=== PATIENT | female | born 1995 | race Caucasian/White ===

== ENCOUNTER → 2019-01-08 | Outpatient (CLI) | payer OTHER ==
[2019-01-08 16:54] LABS: Basophils % (A) 0 %; Eosinophils # (A) 0.1 k/uL (0-0.7); Eosinophils % (A) 2 %; HCT 41.1 % (34.0-46.0); HGB 13.8 gm/dL (11.4-16.0); Lymphocytes # (A) 1.7 k/uL (1.0-4.8); Lymphocytes % (A) 28 %; MCH 31.7 pg (25.0-35.0); MCHC 33.5 g/dL (31.0-37.0); MCV 94.7 fL (80.0-100.0); Mean Platelet Volume 5.8; Monocytes # (A) 0.4 k/uL (0-1.0); Monocytes % (A) 6 %; Neutrophils # (A) 3.9 k/uL (1.3-7.7); Neutrophils % (A) 62 %; Platelet Count 237 k/uL (150-450); RBC 4.34 m/uL (3.80-5.40); WBC 6.3 k/uL (3.8-10.6)
[2019-01-08 16:59] LABS: Prothrombin Time 10.7 sec (9.0-12.0)
[2019-01-08 23:45] LABS: African American GFR (CKD) 141.5 (60.0-200.0); Albumin/Globulin Ratio 2.38 (1.60-3.17); Anion Gap 9.9 mmol/L (4.00-12.00); BUN/Creat Ratio 24.29 Ratio (12.00-20.00); Calcium 9.6 mg/dL (8.7-10.3); Carbon Dioxide 28.1 mmol/L (21.6-31.8); Globulin 2.1 g/dL (1.6-3.3); Non-African American GFR(CKD) 122.1 (60.0-200.0); Potassium 4.1 mmol/L (3.5-5.5); Total Bilirubin 0.6 mg/dL (0.2-1.2); Total Protein 7.1 g/dL (6.2-8.2)
[2019-01-14 11:51] LABS: HCV Qualitative Result DETECTED (Not detected); HCV Quant Log 4.39 (<1.08)
== END | disposition home or self-care (01) ==
LOC: LABWHC1 16:00
PROVIDERS: ATTEND Nurse Practitioner
DX: Z86.19 Personal history of other infectious and parasitic diseases (principal)
CPT/HCPCS: 36415; 80053; 85025; 85610; 87522; 87902

== ENCOUNTER → 2019-01-22 | Outpatient (CLI) | payer OTHER ==
--- NOTE | 2019-01-22 08:50 | US ---
EXAMINATION TYPE: US liver DATE OF EXAM: 01/22/2019 COMPARISON: NONE CLINICAL HISTORY: Z86.19 personal hx of other infec diseases. Pt states recent labs showing Hep C ant ibodies EXAM MEASUREMENTS: Liver Length: 13.8 cm Gallbladder Wall: 0.4cm CBD: 0.4 cm Right Kidney: 10.9 x 4.0 x 5.6 cm Pancreas: wnl Liver: wnl Gallbladder: wnl Evidence for sonographic Arevalo's sign: No CBD: wnl Right Kidney: wnl, lower pole gassed out IMPRESSION: 1. No distinct abnormality seen.
== END | disposition home or self-care (01) ==
LOC: RADUSWWP 08:11
PROVIDERS: ATTEND Internal Medicine Gastroenterology
DX: Z09 Encounter for follow-up examination after completed treatment for conditions other than malignant neoplasm (principal); Z86.19 Personal history of other infectious and parasitic diseases
CPT/HCPCS: 76705

== ENCOUNTER → 2019-04-16 | Outpatient (CLI) | payer OTHER ==
--- NOTE | 2019-04-16 13:46 | US ---
EXAMINATION TYPE: Transabdominal DATE OF EXAM: 04/16/2019 1:15 PM COMPARISON: NONE CLINICAL HISTORY: Z36 confirm dates and viability. EXAM PERFORMED: Transabdominal (TA) EXAM MEASUREMENTS: GESTATIONAL AGE / DATING Physician Established: Not yet established Dates by LMP: (10 weeks/6 days) EDC: 11/06/2019 Dates by First Scan: No previous this is first scan Dates by Current Scan for: (8 weeks/3 days) EDC: demise MATERNAL ANATOMY Uterus: 12.2 x 4.6 x 8.5 cm Right Ovary: 3.3 x 1.4 x 1.8 cm Left Ovary: 4.5 x 2.0 x 2.0 cm Post CDS / Adnexa: Tiny amount of free fluid visualized Presence of free fluid: See above Presence of corpus luteal cyst: Yes, left ovary measuring 1.5 x 1.1 x 1.7 cm Presence of subchorionic bleed: Yes, measuring 1.3 x 1.1 x 1.5 cm GESTATION / SURVEY CRL: 1.89 cm (8 weeks/3 days) Yolk Sac (normal less than 6mm): Not visualized IUP: Demise Date of LMP: 01/30/2019 Beta HcG (if available): Not available at this time demise measuring 8 weeks/3 days IMPRESSION: demise. No heart tones seen despite 2 attempts and absent color flow.
== END | disposition home or self-care (01) ==
LOC: RADUSWWP 12:47
PROVIDERS: ATTEND Obstetrics & Gynecology
DX: O02.1 Missed abortion (principal); Z3A.08 8 weeks gestation of pregnancy; Z34.81 Encounter for supervision of other normal pregnancy, first trimester
CPT/HCPCS: 36415; 76801; 82565; 82947; 84450; 84460; 85027; 86762; 86777; 86778; 86780; 86850; 86900; 86901; 87340

== ENCOUNTER → 2019-04-20 | Day surgery (SDC) | payer OTHER ==
[2019-04-16 13:49] LABS: HCT 35.2 % (34.0-46.0); MCHC 34.1 g/dL (31.0-37.0); MCV 93.9 fL (80.0-100.0); Platelet Count 223 k/uL (150-450); RBC 3.75 m/uL (3.80-5.40); RDW 12.2 % (11.5-15.5); WBC 7.1 k/uL (3.8-10.6)
[2019-04-16 14:10] LABS: ALT 59 U/L (4-34); AST 43 U/L (14-36); African American GFR (CKD) >90 (>60 ml/min/1.73 sqM); Glucose 83 mg/dL (74-99); Non-African American GFR(CKD) >90 (>60 ml/min/1.73 sqM)
[2019-04-16 20:17] LABS: Hepatitis B Surface Antigen Non-Reactive (Non-Reactive)
[2019-04-17 07:00] LABS: Toxoplasma Antibody (IgG) <3.0 IU/mL (<7.2); Toxoplasma Antibody (IgM) <3.0 AU/mL (<8.0)
[2019-04-17 09:15] VITALS: BMI 23.8
[~2019-04-20] MED LIST: DEXAMETHASONE SOD PHOSPHATE 10 MG/ML 1 ML VIAL IV ONE; HYDROmorphone 0.5 MG/0.5 ML SYRINGE IVP PRN; KETOROLAC 30 MG/ML 1 ML VIAL ONE; LACTATED RINGERS 1,000 ML IV SCH; LIDOCAINE 1% 20 ML VIAL (10MG/ML) FOR IV START INTRADERMA ONE; LIDOCAINE 1% INJ 10MG/ML (20 ML MDV) ONE; MIDAZOLAM 2 MG/2 ML VIAL IV PRN; MIDAZOLAM 2 MG/2 ML VIAL ONE; PROPOFOL 10 MG/ML 20 ML VIAL IV ONE; Pre Op ABX Message 1 EACH MISC MISCELLANE ONE; SCOPOLAMINE 1.5MG/72HR PATCH TRANSDERM ONE; fentaNYL (PF) 50 MCG/ML 2 ML AMP ONE
[2019-04-20] MEDS: ONDANSETRON 4 MG/2 ML VIAL IVP ONE ×2 (11:46→13:35)
--- NOTE | 2019-04-20 12:52 | P.HPOB ---
History of Present Illness H&P Date: 04/20/19 Chief Complaint: missed 23 year old presents for suction D&C. She had an ultrasound last week that showed an 8 week 3 day fetus without heart rate. Review of Systems All systems: negative Constitutional: Denies chills, Denies fever Eyes: denies blurred vision, denies pain Ears, nose, mouth and throat: Denies headache, Denies sore throat Cardiovascular: Denies chest pain, Denies shortness of breath Respiratory: Denies cough Gastrointestinal: Denies abdominal pain, Denies diarrhea, Denies nausea, Denies vomiting Genitourinary: Denies dysuria, Denies hematuria Musculoskeletal: Denies myalgias Integumentary: Denies pruritus, Denies rash Neurological: Denies numbness, Denies weakness Psychiatric: Denies anxiety, Denies depression Endocrine: Denies fatigue, Denies weight change Past Medical History Past Medical History: No Reported History History of Any Multi-Drug Resistant Organisms: None Reported Past Surgical History: No Surgical Hx Reported Additional Past Surgical History / Comment(s): retained Nexplanon removed from Left upper arm Past Anesthesia/Blood Transfusion Reactions: No Reported Reaction Smoking Status: Never smoker Medications and Allergies Home Medications Medication Instructions Recorded Confirmed Type No Known Home Medications 11/15/15 04/17/19 History Allergies Allergy/AdvReac Type Severity Reaction Status Date / Time No Known Allergies Allergy Verified 04/17/19 09:12 Exam Osteopathic Statement: *. No significant issues noted on an osteopathic structural exam other than those noted in the History and Physical/Consult. Vital Signs Temp Pulse Resp BP Pulse Ox 04/20/19 11:37 97.4 F L 76 18 109/64 98 Intake and Output 04/19/19 04/20/19 04/20/19 22:59 06:59 14:59 Other: Weight 62.4 kg Heart: Regular rate and rhythm Lungs: Clear to auscultation bilaterally Abdomen: Soft, nontender Extremities: Negative Homans sign Results Result Diagrams: 04/16/19 13:21 04/16/19 13:21 Assessment and Plan (1) Missed Current Visit: Yes Status: Acute Code(s): O02.1 - MISSED SNOMED Code(s): 77355698 Plan: 1. Suction D&C
--- NOTE | 2019-04-20 13:35 | P.OP ---
Date of Procedure: 04/20/19 Preoperative Diagnosis: 1. Missed Postoperative Diagnosis: 1. Missed Procedure(s) Performed: Suction D&C Anesthesia: BELÉN Surgeon: Elle Romero Estimated Blood Loss (ml): 200 IV fluids (ml): 300 Urine output (ml): 150 Pathology: other (Proximal of conception) Condition: stable Disposition: PACU Description of Procedure: Patient taken the operating room where general anesthesia was obtained without difficulty. She progressed draped in normal sterile fashion dorsal lithotomy position, legs placed in the candycane stirrups. Bladder was drained of all urine. Weighted speculum placed in the vagina and the anterior lip the cervix was grasped with single-tooth tenaculum. Cervix is dilated to #10 Hegar dilator. There were 10 curved suction curet was introduced and hooked up to suction. This was passed several times to ensure all tissue and blood has been removed. Sharp curet was gently used to ensure all tissue had been removed. The suction curet was reintroduced and removed more blood. Hemostasis was assured. All instruments removed from the vagina. Patient to our procedure well, sponge and instrument counts correct 2. She was taken to recovery in stable condition.
[2019-04-20 13:37] VITALS: TEMP 97.2
[2019-04-20 13:44] VITALS: RESP 16
[2019-04-20 14:56] VITALS: BP 124/72; PULSE 72
== END | disposition home or self-care (01) ==
LOC: OR 11:23
PROVIDERS: ATTEND Obstetrics & Gynecology
DX: O02.1 Missed abortion (principal)
CPT/HCPCS: 86900; 86901; 86778; 86762; 86777; 88305; 82565; 82947; 84450; 84460; 85027; 86850; 87340; 86780; 36415; 59820; J2250; J1100; J2405; J2001; J3010; J1885; J2704

== ENCOUNTER 2019-07-16 15:29 | Emergency (ER) | payer OTHER ==
[2019-07-16 15:38] VITALS: RESP 18
[2019-07-16] MEDS ORDERED: ONDANSETRON 4 MG/2 ML VIAL IVP STA (16:00)
[2019-07-16] MEDS ORDERED: SODIUM CHLORIDE 0.9% 1,000 ML IV STA (16:00)
--- NOTE | 2019-07-16 16:26 | ED ---
General Adult HPI - General Chief complaint: Nausea/Vomiting/Diarrhea Stated complaint: Vomiting from meth Time Seen by Provider: 07/16/19 16:00 Source: patient Mode of arrival: ambulatory Limitations: no limitations - History of Present Illness Initial comments: Dictation was produced using [employer] dictation software. please excuse any grammatical, word or spelling errors. This patient was cared for during a federal and state declared state of emergency secondary to Covid 19 Chief Complaint: 23-year-old female presents with nausea and vomiting History of Present Illness: She is 23-year-old female she woke up with nausea and vomiting. Patient states that she did meth yesterday. Patient states she frequently uses meth without any issues. Patient denies any abdominal pain. Patient reports that her emesis is nonbilious not bloody. She denies any abdominal pain. She states that she injected this methamphetamine. Patient does not believe she is . The ROS documented in this emergency department record has been reviewed and confirmed by me. Those systems with pertinent positive or negative responses have been documented in the HPI. All other systems are other negative and/or noncontributory. PHYSICAL EXAM: General Impression: Alert and oriented x3, not in acute distress HEENT: Normocephalic atraumatic, extra-ocular movements intact, pupils equal and reactive to light bilaterally, mucous membranes moist. Cardiovascular: Heart regular rate and rhythm Chest: Able to complete full sentences, no retractions, no tachypnea Abdomen: abdomen soft, non-tender, non-distended, no organomegaly Musculoskeletal: Pulses present and equal in all extremities, no peripheral edema Motor: no focal deficits noted Neurological: CN II-XII grossly intact, no focal motor or sensory deficits noted Skin: Intact with no visualized rashes Psych: Normal affect and mood ED course: 23-year-old female presents with nausea and vomiting after use of methamphetamine yesterday. Signs upon arrival shows heart rate of 112, rest of vital signs within acceptable limits. Laboratory evaluation obtained. CBC unremarkable. Metabolic panel is unremarkable. Patient given Zofran and intravenous fluids with improvement of symptoms. At this point is unclear what is causing patient's symptoms. It could likely be secondary to illicit drug use. Patient advised to follow-up with primary care physician. Return for was discussed. Patient given some Zofran to go home with. Repeat vitals are improved. EKG interpretation: Ventricular rate 85, normal sinus rhythm, WV interval 120, QRS 80, QTc 461. No WV prolongation, no QTC prolongation, no ST or T-wave changes noted. Overall, this EKG is unremarkable - Related Data Previous Rx's Medication Instructions Recorded Ibuprofen [Motrin] 600 mg PO Q6HR PRN #30 tab 04/20/19 Allergies Allergy/AdvReac Type Severity Reaction Status Date / Time No Known Allergies Allergy Verified 07/16/19 15:38 Review of Systems ROS Statement: Those systems with pertinent positive or pertinent negative responses have been documented in the HPI. ROS Other: All systems not noted in ROS Statement are negative. Past Medical History Past Medical History: No Reported History History of Any Multi-Drug Resistant Organisms: None Reported Past Surgical History: No Surgical Hx Reported Additional Past Surgical History / Comment(s): retained Nexplanon removed from Left upper arm Past Anesthesia/Blood Transfusion Reactions: No Reported Reaction Past Psychological History: No Psychological Hx Reported Smoking Status: Never smoker Past Drug Use History: Methamphetamine General Exam Limitations: no limitations Course Vital Signs 07/16/19 15:33 Temperature 98.0 F Pulse Rate 112 H Respiratory 18 Rate Blood Pressure 115/79 O2 Sat by Pulse 98 Oximetry Medical Decision Making - Lab Data Result diagrams: 07/16/19 16:10 07/16/19 16:10 Lab Results 07/16/19 07/16/19 Range/Units 16:10 16:10 WBC 9.0 (3.8-10.6) k/uL RBC 4.69 (3.80-5.40) m/uL Hgb 14.7 (11.4-16.0) gm/dL Hct 44.5 (34.0-46.0) % MCV 94.9 (80.0-100.0) fL MCH 31.4 (25.0-35.0) pg MCHC 33.0 (31.0-37.0) g/dL RDW 12.1 (11.5-15.5) % Plt Count 230 (150-450) k/uL Neutrophils % 80 % Lymphocytes % 12 % Monocytes % 5 % Eosinophils % 1 % Basophils % 0 % Neutrophils # 7.2 (1.3-7.7) k/uL Lymphocytes # 1.0 (1.0-4.8) k/uL Monocytes # 0.5 (0-1.0) k/uL Eosinophils # 0.1 (0-0.7) k/uL Basophils # 0.0 (0-0.2) k/uL Sodium 137 (137-145) mmol/L Potassium 3.8 (3.5-5.1) mmol/L Chloride 103 (98-107) mmol/L Carbon Dioxide 22 (22-30) mmol/L Anion Gap 12 mmol/L BUN 13 (7-17) mg/dL Creatinine 0.53 (0.52-1.04) mg/dL Est GFR (CKD-EPI)AfAm >90 (>60 ml/min/1.73 sqM) Est GFR (CKD-EPI)NonAf >90 (>60 ml/min/1.73 sqM) Glucose 109 H (74-99) mg/dL Calcium 9.6 (8.4-10.2) mg/dL Magnesium 1.8 (1.6-2.3) mg/dL Total Bilirubin 1.1 (0.2-1.3) mg/dL AST 51 H (14-36) U/L ALT 62 H (4-34) U/L Alkaline Phosphatase 90 (38-126) U/L Total Protein 7.9 (6.3-8.2) g/dL Albumin 4.7 (3.5-5.0) g/dL Lipase 79 (23-300) U/L Disposition Clinical Impression: Nausea & vomiting Disposition: HOME SELF-CARE Condition: Good Instructions (If sedation given, give patient instructions): Acute Nausea and Vomiting (ED) Is patient prescribed a controlled substance at d/c from ED?: No Referrals: None,Stated [Primary Care Provider] - 1-2 days Time of Disposition: 17:26
[2019-07-16 16:31] LABS: Basophils % (A) 0 %; Eosinophils # (A) 0.1 k/uL (0-0.7); Eosinophils % (A) 1 %; HCT 44.5 % (34.0-46.0); HGB 14.7 gm/dL (11.4-16.0); Lymphocytes % (A) 12 %; MCH 31.4 pg (25.0-35.0); MCV 94.9 fL (80.0-100.0); Monocytes # (A) 0.5 k/uL (0-1.0); Monocytes % (A) 5 %; Neutrophils # (A) 7.2 k/uL (1.3-7.7); Neutrophils % (A) 80 %; Platelet Count 230 k/uL (150-450); RBC 4.69 m/uL (3.80-5.40); RDW 12.1 % (11.5-15.5)
[2019-07-16 16:44] LABS: ALT 62 U/L (4-34); AST 51 U/L (14-36); African American GFR (CKD) >90 (>60 ml/min/1.73 sqM); Albumin 4.7 g/dL (3.5-5.0); Alkaline Phosphatase 90 U/L (38-126); Anion Gap 12 mmol/L; Blood Urea Nitrogen 13 mg/dL (7-17); Calcium 9.6 mg/dL (8.4-10.2); Carbon Dioxide 22 mmol/L (22-30); Chloride 103 mmol/L (98-107); Glucose 109 mg/dL (74-99); Magnesium 1.8 mg/dL (1.6-2.3); Non-African American GFR(CKD) >90 (>60 ml/min/1.73 sqM); Potassium 3.8 mmol/L (3.5-5.1); Sodium 137 mmol/L (137-145); Total Bilirubin 1.1 mg/dL (0.2-1.3); Total Protein 7.9 g/dL (6.3-8.2)
[2019-07-16] MEDS ORDERED: ONDANSETRON 4 MG ODT STARTER PACK 2 TAB BTL PO STA (17:26)
--- NOTE | 2019-07-16 18:00 | ED ---
Medical Decision Making - Lab Data Result diagrams: 07/16/19 16:10 07/16/19 16:10 Lab Results 07/16/19 07/16/19 07/16/19 Range/Units 16:10 16:10 16:10 WBC 9.0 (3.8-10.6) k/uL RBC 4.69 (3.80-5.40) m/uL Hgb 14.7 (11.4-16.0) gm/dL Hct 44.5 (34.0-46.0) % MCV 94.9 (80.0-100.0) fL MCH 31.4 (25.0-35.0) pg MCHC 33.0 (31.0-37.0) g/dL RDW 12.1 (11.5-15.5) % Plt Count 230 (150-450) k/uL Neutrophils % 80 % Lymphocytes % 12 % Monocytes % 5 % Eosinophils % 1 % Basophils % 0 % Neutrophils # 7.2 (1.3-7.7) k/uL Lymphocytes # 1.0 (1.0-4.8) k/uL Monocytes # 0.5 (0-1.0) k/uL Eosinophils # 0.1 (0-0.7) k/uL Basophils # 0.0 (0-0.2) k/uL Sodium 137 (137-145) mmol/L Potassium 3.8 (3.5-5.1) mmol/L Chloride 103 (98-107) mmol/L Carbon Dioxide 22 (22-30) mmol/L Anion Gap 12 mmol/L BUN 13 (7-17) mg/dL Creatinine 0.53 (0.52-1.04) mg/dL Est GFR (CKD-EPI)AfAm >90 (>60 ml/min/1.73 sqM) Est GFR (CKD-EPI)NonAf >90 (>60 ml/min/1.73 sqM) Glucose 109 H (74-99) mg/dL Calcium 9.6 (8.4-10.2) mg/dL Magnesium 1.8 (1.6-2.3) mg/dL Total Bilirubin 1.1 (0.2-1.3) mg/dL AST 51 H (14-36) U/L ALT 62 H (4-34) U/L Alkaline Phosphatase 90 (38-126) U/L Total Protein 7.9 (6.3-8.2) g/dL Albumin 4.7 (3.5-5.0) g/dL Lipase 79 (23-300) U/L Urine HCG, Qual Detected (Not Detectd) Disposition Clinical Impression: Nausea & vomiting, Disposition: HOME SELF-CARE Condition: Good Instructions (If sedation given, give patient instructions): Acute Nausea and Vomiting (ED), (ED), Nausea and Vomiting in (ED) Prescriptions: Doxylamine/Pyridoxine HCl (B6) [Ramy Wing 10-10 mg Tablet] 1 each PO TID #24 tablet.dr Is patient prescribed a controlled substance at d/c from ED?: No Referrals: Mikel Brower MD [STAFF PHYSICIAN] - 1-2 days Time of Disposition: 18:00
[2019-07-16 18:01] VITALS: BP 115/77; PULSE 87; TEMP 97.2
== END 2019-07-16 18:05 | disposition home or self-care (01) ==
LOC: EC 15:29
DX: O21.9 Vomiting of pregnancy, unspecified (principal); O99.89 Other specified diseases and conditions complicating pregnancy, childbirth and the puerperium; R19.7 Diarrhea, unspecified; Z3A.00 Weeks of gestation of pregnancy not specified
CPT/HCPCS: 36415; 93005; 80053; 83690; 83735; 85025; 81025; 99284; 96374; 96361; J2405; S0119

== ENCOUNTER 2019-07-22 08:48 | Emergency (ER) | payer OTHER ==
--- NOTE | 2019-07-22 09:09 | ED ---
General Adult HPI - General Source: patient, RN notes reviewed Mode of arrival: ambulatory Limitations: no limitations <Stepan Chang - Last Filed: 07/22/19 10:44> <Elizabeth Maki - Last Filed: 07/22/19 23:06> - General Chief complaint: Urogenital Stated complaint: Bladder infection Time Seen by Provider: 07/22/19 08:54 - History of Present Illness Initial comments: 23-year-old female presents to the emergency department for a chief complaint of "possible bladder infection." Patient states that this when she woke up and felt she had a urinate. States that when she was trying to urinate she had some pressure with urination. States she only urinated a small amount. States she's still has the urge to urinate but is not urinating a significant amount. Patient is concerned she may have a bladder infection. Patient denies any significant review back pain. Denies any pain at rest. Denies dysuria. P jason is currently 5 weeks with a last menstrual period of June 13. Patient is in the process of establishing with [facility]. She is a female.Patient has no other complaints at this time including shortness of breath, chest pain, abdominal pain, nausea or vomiting, headache, or visual changes. (Stepan Chang) - Related Data Previous Rx's Medication Instructions Recorded Ibuprofen [Motrin] 600 mg PO Q6HR PRN #30 tab 04/20/19 Doxylamine/Pyridoxine HCl (B6) 1 each PO TID #24 tablet. 07/16/19 [Ramy Wing 10-10 mg Tablet] Cephalexin [Keflex] 500 mg PO Q6HR 10 Days #40 cap 07/22/19 Allergies Allergy/AdvReac Type Severity Reaction Status Date / Time No Known Allergies Allergy Verified 07/22/19 08:53 Review of Systems ROS Other: All systems not noted in ROS Statement are negative. <Stepan Chang - Last Filed: 07/22/19 10:44> ROS Other: All systems not noted in ROS Statement are negative. <Elizabeth Maki - Last Filed: 07/22/19 23:06> ROS Statement: Those systems with pertinent positive or pertinent negative responses have been documented in the HPI. Past Medical History Past Medical History: No Reported History History of Any Multi-Drug Resistant Organisms: None Reported Past Surgical History: No Surgical Hx Reported Additional Past Surgical History / Comment(s): retained Nexplanon removed from Left upper arm Past Anesthesia/Blood Transfusion Reactions: No Reported Reaction Past Psychological History: No Psychological Hx Reported Smoking Status: Never smoker Past Alcohol Use History: None Reported Past Drug Use History: Methamphetamine <Stepan Chang - Last Filed: 07/22/19 10:44> General Exam Limitations: no limitations General appearance: alert, in no apparent distress Head exam: Present: atraumatic, normocephalic, normal inspection Eye exam: Present: normal appearance, PERRL, EOMI. Absent: scleral icterus, conjunctival injection, periorbital swelling ENT exam: Present: normal exam, mucous membranes moist Neck exam: Present: normal inspection, full ROM. Absent: tenderness, mening ismus Respiratory exam: Present: normal lung sounds bilaterally. Absent: respiratory distress, wheezes, rales, rhonchi, stridor Cardiovascular Exam: Present: regular rate, normal rhythm, normal heart sounds. Absent: systolic murmur, diastolic murmur, rubs, gallop, clicks GI/Abdominal exam: Present: soft, normal bowel sounds. Absent: distended, tenderness (No tenderness in the abdomen whatsoever), guarding, rebound, rigid Back exam: Absent: CVA tenderness (R), CVA tenderness (L) Neurological exam: Present: alert <Stepan Chang - Last Filed: 07/22/19 10:44> Course Vital Signs 07/22/19 07/22/19 08:51 10:36 Temperature 98.1 F 98.0 F Pulse Rate 95 84 Respiratory 16 18 Rate Blood Pressure 118/72 106/67 O2 Sat by Pulse 99 100 Oximetry Medical Decision Making - Lab Data Result diagrams: 07/22/19 09:40 07/22/19 09:40 <Stepan Chang - Last Filed: 07/22/19 10:44> - Lab Data Result diagrams: 07/22/19 09:40 07/22/19 09:40 <Elizabeth Maki - Last Filed: 07/22/19 23:06> - Medical Decision Making Vitals are stable. Physical exam is unremarkable. Urinalysis was initially ordered which showed 4+ ketones as well as 182 white and red blood cells. At this time IV fluids and basic laboratory evaluation was ordered. Patient was given 2 L of fluids as well as IV Rocephin for urinary tract infection. Urine culture pending. Gonorrhea and chlamydia pending. Patient does not have CVA tenderness nor abdominal pain or tenderness. No evidence for pyelonephritis. CBC CMP unremarkable. Ultrasound did demonstrate a possible gestational sac visualized. Beta hCG is 5000. Patient will repeat this in 2 days, prescription given. States that she is scheduling an appointment with [facility] and has already talked with the office. I discussed with patient that she will need a repeat ultrasound as well. Patient will take her antibiotic as directed. She will return for any worsening symptoms or fevers. (Stepan Chang) I was available for consultation in the emergency department. The history and physical exam were done by the midlevel provider. I was consulted for this patients care. I reviewed the case with the midlevel provider and based on their presentation of the patient, I agree with the assessment, medical decision making and plan of care as documented. Patient instructed as to importance of repeat beta in 48 hours and repeat us in 1 week. Patient denies back pain, flank pain, fevers or chills. Strict return parameters discussed. Chart was dictated using [employer] dictation software. Attempts were made to correct any dictation errors however some typographical errors may persist. Patient was seen during a national state of emergency due to the Covid-19 pandemic. (Elizabeth Maki) - Lab Data Lab Results 07/22/19 07/22/19 07/22/19 Range/Units 09:00 09:00 09:40 WBC 11.7 H (3.8-10.6) k/uL RBC 4.32 (3.80-5.40) m/uL Hgb 13.8 (11.4-16.0) gm/dL Hct 40.7 (34.0-46.0) % MCV 94.2 (80.0-100.0) fL MCH 32.0 (25.0-35.0) pg MCHC 34.0 (31.0-37.0) g/dL RDW 12.5 (11.5-15.5) % Plt Count 243 (150-450) k/uL Neutrophils % 82 % Lymphocytes % 12 % Monocytes % 5 % Eosinophils % 1 % Basophils % 0 % Neutrophils # 9.6 H (1.3-7.7) k/uL Lymphocytes # 1.4 (1.0-4.8) k/uL Monocytes # 0.5 (0-1.0) k/uL Eosinophils # 0.1 (0-0.7) k/uL Basophils # 0.0 (0-0.2) k/uL Sodium (137-145) mmol/L Potassium (3.5-5.1) mmol/L Chloride (98-107) mmol/L Carbon Dioxide (22-30) mmol/L Anion Gap mmol/L BUN (7-17) mg/dL Creatinine (0.52-1.04) mg/dL Est GFR (CKD-EPI)AfAm (>60 ml/min/1.73 sqM) Est GFR (CKD-EPI)NonAf (>60 ml/min/1.73 sqM) Glucose (74-99) mg/dL Calcium (8.4-10.2) mg/dL Total Bilirubin (0.2-1.3) mg/dL AST (14-36) U/L ALT (4-34) U/L Alkaline Phosphatase (38-126) U/L Total Protein (6.3-8.2) g/dL Albumin (3.5-5.0) g/dL HCG, Quant mIU/mL Urine Color Yellow Urine Appearance Turbid H (Clear) Urine pH 6.5 (5.0-8.0) Ur Specific [place] 1.023 (1.001-1.035) Urine Protein 3+ H (Negative) Urine Glucose (UA) Negative (Negative) Urine Ketones 4+ H (Negative) Urine Blood Moderate H (Negative) Urine Nitrite Negative (Negative) Urine Bilirubin Negative (Negative) Urine Urobilinogen <2.0 (<2.0) mg/dL Ur Leukocyte Esterase Large H (Negative) Urine RBC >182 H (0-5) /hpf Urine WBC >182 H (0-5) /hpf Urine WBC Clumps Many H (None) /hpf Ur Squamous Epith Cells 14 H (0-4) /hpf Urine Bacteria Occasional H (None) /hpf Urine Mucus Many H (None) /hpf Urine HCG, Qual Detected (Not Detectd) Blood Type Blood Type Recheck Bld Type Recheck Status 07/22/19 07/22/19 Range/Units 09:40 09:40 WBC (3.8-10.6) k/uL RBC (3.80-5.40) m/uL Hgb (11.4-16.0) gm/dL Hct (34.0-46.0) % MCV (80.0-100.0) fL MCH (25.0-35.0) pg MCHC (31.0-37.0) g/dL RDW (11.5-15.5) % Plt Count (150-450) k/uL Neutrophils % % Lymphocytes % % Monocytes % % Eosinophils % % Basophils % % Neutrophils # (1.3-7.7) k/uL Lymphocytes # (1.0-4.8) k/uL Monocytes # (0-1.0) k/uL Eosinophils # (0-0.7) k/uL Basophils # (0-0.2) k/uL Sodium 137 (137-145) mmol/L Potassium 3.8 (3.5-5.1) mmol/L Chloride 103 (98-107) mmol/L Carbon Dioxide 26 (22-30) mmol/L Anion Gap 8 mmol/L BUN 13 (7-17) mg/dL Creatinine 0.56 (0.52-1.04) mg/dL Est GFR (CKD-EPI)AfAm >90 (>60 ml/min/1.73 sqM) Est GFR (CKD-EPI)NonAf >90 (>60 ml/min/1.73 sqM) Glucose 113 H (74-99) mg/dL Calcium 9.5 (8.4-10.2) mg/dL Total Bilirubin 0.4 (0.2-1.3) mg/dL AST 36 (14-36) U/L ALT 45 H (4-34) U/L Alkaline Phosphatase 61 (38-126) U/L Total Protein 7.3 (6.3-8.2) g/dL Albumin 4.5 (3.5-5.0) g/dL HCG, Quant 5578.3 mIU/mL Urine Color Urine Appearance (Clear) Urine pH (5.0-8.0) Ur Specific [place] (1.001-1.035) Urine Protein (Negative) Urine Glucose (UA) (Negative) Urine Ketones (Negative) Urine Blood (Negative) Urine Nitrite (Negative) Urine Bilirubin (Negative) Urine Urobilinogen (<2.0) mg/dL Ur Leukocyte Esterase (Negative) Urine RBC (0-5) /hpf Urine WBC (0-5) /hpf Urine WBC Clumps (None) /hpf Ur Squamous Epith Cells (0-4) /hpf Urine Bacteria (None) /hpf Urine Mucus (None) /hpf Urine HCG, Qual (Not Detectd) Blood Type O Positive Blood Type Recheck O Pos Bld Type Recheck Status No Disposition Is patient prescribed a controlled substance at d/c from ED?: No Time of Disposition: 10:36 <Stepan Chang - Last Filed: 07/22/19 10:44> <Elizabeth Maki - Last Filed: 07/22/19 23:06> Clinical Impression: Urinary tract infection Disposition: HOME SELF-CARE Condition: Good Instructions (If sedation given, give patient instructions): Urinary Tract Infection in Women (ED) Additional Instructions: Please drink plenty of fluids. Take antibiotic as directed. You may start this tomorrow as you received IV antibiotics today. Follow up with your [facility]. Repeat hCG on 07/24/19. You will need a repeat ultrasound ordered by [facility]. Return here to the emergency department for any worsening symptoms. Prescriptions: Cephalexin [Keflex] 500 mg PO Q6HR 10 Days #40 cap Referrals: Emmy Connolly MD [REFERRING] - 1-2 days
[2019-07-22 09:20] LABS: Appearance,Urine Turbid (Clear); Bacteria,Urine Occasional /hpf; Bilirubin,Urine Negative (Negative); Blood,Urine Moderate (Negative); Color,Urine Yellow; Glucose,Urine (UA) Negative (Negative); Ketones,Urine 4+ (Negative); Leukocyte Esterase,Urine Large (Negative); Mucus,Urine Many /hpf; Nitrite,Urine Negative (Negative); PH, Urine 6.5 (5.0-8.0); Protein,Urine 3+ (Negative); RBC,Urine >182 /hpf (0-5); Specific Gravity,Urine 1.023 (1.001-1.035); Squamous Epithelial Cell,Urine 14 /hpf (0-4); Urobilinogen,Urine <2.0 mg/dL (<2.0); WBC,Urine >182 /hpf (0-5)
[2019-07-22] MEDS ORDERED: SODIUM CHLORIDE 0.9% 1,000 ML IV STA (09:25)
[2019-07-22 10:10] LABS: ALT 45 U/L (4-34); AST 36 U/L (14-36); African American GFR (CKD) >90 (>60 ml/min/1.73 sqM); Albumin 4.5 g/dL (3.5-5.0); Alkaline Phosphatase 61 U/L (38-126); Anion Gap 8 mmol/L; Blood Urea Nitrogen 13 mg/dL (7-17); Calcium 9.5 mg/dL (8.4-10.2); Carbon Dioxide 26 mmol/L (22-30); Chloride 103 mmol/L (98-107); Glucose 113 mg/dL (74-99); Non-African American GFR(CKD) >90 (>60 ml/min/1.73 sqM); Potassium 3.8 mmol/L (3.5-5.1); Sodium 137 mmol/L (137-145); Total Bilirubin 0.4 mg/dL (0.2-1.3); Total Protein 7.3 g/dL (6.3-8.2)
[2019-07-22 10:11] LABS: Basophils % (A) 0 %; Eosinophils # (A) 0.1 k/uL (0-0.7); Eosinophils % (A) 1 %; HCT 40.7 % (34.0-46.0); HGB 13.8 gm/dL (11.4-16.0); Lymphocytes # (A) 1.4 k/uL (1.0-4.8); Lymphocytes % (A) 12 %; MCV 94.2 fL (80.0-100.0); Mean Platelet Volume 6.9; Monocytes # (A) 0.5 k/uL (0-1.0); Monocytes % (A) 5 %; Neutrophils # (A) 9.6 k/uL (1.3-7.7); Neutrophils % (A) 82 %; Platelet Count 243 k/uL (150-450); RBC 4.32 m/uL (3.80-5.40); RDW 12.5 % (11.5-15.5); WBC 11.7 k/uL (3.8-10.6)
--- NOTE | 2019-07-22 10:19 | US ---
EXAMINATION TYPE: Transabdominal DATE OF EXAM: 07/22/2019 10:09 AM COMPARISON: NONE CLINICAL HISTORY: pelvic pain. UTI symptoms, trouble urinating EXAM PERFORMED: Transabdominal (TA) EXAM MEASUREMENTS: GESTATIONAL AGE / DATING Physician Established: Not yet established Dates by LMP: (5 weeks/3 days) EDC: 03/20/2020 Dates by First Scan: No previous this is first scan ( Dates by Current Scan for: Unable to date, too small on today's exam MATERNAL ANATOMY Uterus: 8.3 x 4.5 x 5.9 cm Right Ovary: 3.0 x 1.7 x 2.3 cm Left Ovary: 3.3 x 2.2 x 1.9 cm Post CDS / Adnexa: Tiny amount of free fluid visualized in cul de sac Presence of free fluid: Yes Presence of corpus luteal cyst: No Presence of subchorionic bleed: No GESTATION / SURVEY MSD: 0.71 cm - too small to date Yolk Sac (normal less than 6mm): Not visualized on this exam IUP: No pole or yolk sac visualized, only possible early gestational sac Date of LMP: 06/14/2019 Beta HcG (if available): Not available at this time IMPRESSION: Possible early gestational sac visualized. No yolk sac or pole visualized on this exam. Correla te clinically with serial beta hCG and/or ultrasound.
[2019-07-22 10:26] LABS: HCG,Quantitative Serum 5578.3 mIU/mL
[2019-07-22] MEDS ORDERED: cefTRIAXone IN SWFI 1,000 MG/10 ML SYRINGE IVP STA (10:30)
[2019-07-22 10:37] VITALS: BP 106/67; PULSE 84; RESP 18; TEMP 98
== END 2019-07-22 11:03 | disposition home or self-care (01) ==
LOC: EC 08:48
DX: O23.41 Unspecified infection of urinary tract in pregnancy, first trimester (principal); Z3A.01 Less than 8 weeks gestation of pregnancy
CPT/HCPCS: 36415; 86900; 86901; 80053; 85025; 81001; 81025; 84702; 87040; 87491; 87591; 87086; 76801; 99284; 96374; 96361; J0696

== ENCOUNTER 2019-11-19 17:22 | Outpatient (CLI) | payer OTHER ==
[2019-11-19 18:16] LABS: Appearance,Urine Cloudy (Clear); Bacteria,Urine Occasional /hpf; Bilirubin,Urine Negative (Negative); Blood,Urine Large (Negative); Color,Urine Light Red; Glucose,Urine (UA) Negative (Negative); Ketones,Urine Negative (Negative); Leukocyte Esterase,Urine Trace (Negative); Nitrite,Urine Negative (Negative); PH, Urine 6.5 (5.0-8.0); Protein,Urine 1+ (Negative); RBC,Urine >182 /hpf (0-5); Specific Gravity,Urine 1.019 (1.001-1.035); Squamous Epithelial Cell,Urine 2 /hpf (0-4); Urobilinogen,Urine <2.0 mg/dL (<2.0); WBC,Urine 9 /hpf (0-5)
[2019-11-19 20:24] VITALS: BP 109/59; PULSE 84; RESP 16; TEMP 98.2
--- NOTE | 2019-11-27 12:57 | P.MSEPDOC ---
Presenting Problems - Arrival Data Date of Arrival on Unit: 11/19/19 Time of Arrival on Unit: 17:22 Mode of Transport: Ambulatory - Complaint OB-Reason for Admission/Chief Complaint: Other Comment: pink urine, no symptoms Medical History - Information : 3 Para: 0 Term: 0 : 0 Abortions: Spontaneous or Elective: 0 Number of Living Children: 0 - Gestational Age Gestational Age by KAREN (wks/days): 22 Weeks and 4 Days Review of Systems - Review of Systems Constitutional: No problems Breast: No problems ENT: No problems Cardiovascular: No problems Respiratory: No problems Gastrointestinal: No problems Genitourinary: No problems Musculoskeletal: No problems Neurological: No problems Skin: No problems Vital Signs - Temperature Temperature: 98.2 F Temperature Source: Oral - Pulse Right Pulse Rate: 84 Pulse Assessment Method: Automatic Cuff - Respirations Respiratory Rate: 16 Oxygen Delivery Method: Room Air - Blood Pressure Right Arm Blood Pressure: 109/59 Blood Pressure Mean: 75 Blood Pressure Source: Automatic Cuff Medical Screen Scoring (Pre) - Cervical Exam Dilation: Exam Deferred Effacement: Exam Deferred Membranes: Intact - Uterine Contractions Frequency: N/A Duration: N/A Intensity: N/A - Maternal Vital Signs Maternal Temperature: N/A Signs of Preeclampsia: N/A Maternal Respirations: N/A - Maternal Trauma Maternal Trauma: N/A - Assessment - Baby A Baseline FHR: 150 - Total Score - Baby A Total Score - Baby A: 0 - Total Score - Baby B Total Score - Baby B: 0 - Total Score - Baby C Total Score - Baby C: 0 - Level of Risk - Baby A Level of Risk - Baby A: Low (0-5) - Level of Risk - Baby B Level of Risk - Baby B: Low (0-5) - Level of Risk - Baby C Level of Risk - Baby C: Low (0-5) Physician Notification (Pre) - Physician Notified Physician Notified Date: 11/19/19 Physician Notified Time: 18:50 New Order Received: Yes (discharge with strainer and hat) Disposition - Disposition OB Disposition: Triage, Discharge to home, Written follow up instructions reviewed Discharge Date: 11/19/19 Discharge Time: 18:55 I agree with the RN Medical Screening Exam: Yes Risk & Benefit of care provided described in d/c instruction: Yes Diagnosis: HEMATURIA, UNSPECIFIED
== END 2019-11-19 18:55 | disposition home or self-care (01) ==
LOC: FBPOP 17:22
PROVIDERS: ATTEND Obstetrics & Gynecology
DX: O99.89 Other specified diseases and conditions complicating pregnancy, childbirth and the puerperium (principal); R31.9 Hematuria, unspecified; Z3A.22 22 weeks gestation of pregnancy
CPT/HCPCS: 81001; G0463; 99213

== ENCOUNTER 2020-02-20 17:08 | Outpatient (CLI) | payer OTHER ==
[2020-02-20 17:54] VITALS: BP 134/67; PULSE 92; RESP 18; TEMP 97
--- NOTE | 2020-02-21 21:36 | P.MSEPDOC ---
Presenting Problems - Arrival Data Date of Arrival on Unit: 02/20/20 Time of Arrival on Unit: 17:08 Mode of Transport: Wheelchair - Complaint OB-Reason for Admission/Chief Complaint: Vaginal Bleeding Comment: pt reports to triage with c/o bleeding after sexual intercourse 20- 30mins before coming in. Medical History - Information : 3 Para: 0 Term: 0 : 0 Abortions: Spontaneous or Elective: 0 Number of Living Children: 0 - Gestational Age Gestational Age by KAREN (wks/days): 35 Weeks and 6 Days Review of Systems - Review of Systems Constitutional: No problems Breast: No problems ENT: No problems Cardiovascular: No problems Respiratory: No problems Gastrointestinal: No problems Genitourinary: No problems Musculoskeletal: No problems Neurological: No problems Skin: No problems Vital Signs - Temperature Temperature: 97.0 F Temperature Source: Tympanic - Pulse Right Pulse Rate: 92 Pulse Assessment Method: Automatic Cuff - Respirations Respiratory Rate: 18 Oxygen Delivery Method: Room Air O2 Sat by Pulse Oximetry: 99 - Blood Pressure Right Arm Blood Pressure: 134/67 Blood Pressure Mean: 89 Blood Pressure Source: Automatic Cuff Medical Screen Scoring (Pre) - Cervical Exam Dilation: Exam Deferred Effacement: Exam Deferred Membranes: Intact - Uterine Contractions Frequency: > 5 minutes apart = 1 Duration: N/A Intensity: N/A - Maternal Vital Signs Maternal Temperature: N/A Maternal Blood Pressure: N/A Signs of Preeclampsia: N/A Maternal Respirations: N/A - Maternal Trauma Maternal Trauma: N/A - Assessment - Baby A Baseline FHR: 125 Heart Rate - NICHD Category: Category I (Normal) = 0 Position: N/A Station: N/A - Total Score - Baby A Total Score - Baby A: 1 - Total Score - Baby B Total Score - Baby B: 1 - Total Score - Baby C Total Score - Baby C: 1 - Level of Risk - Baby A Level of Risk - Baby A: Low (0-5) - Level of Risk - Baby B Level of Risk - Baby B: Low (0-5) - Level of Risk - Baby C Level of Risk - Baby C: Low (0-5) Physician Notification (Pre) - Physician Notified Physician Notified Date: 02/20/20 Physician Notified Time: 19:42 New Order Received: Yes - Notification Comment Comment: cervical exam, monitor 1 hour and recheck. Disposition - Disposition OB Disposition: Discharge to home Discharge Date: 02/20/20 Discharge Time: 19:18 I agree with the RN Medical Screening Exam: Yes Risk & Benefit of care provided described in d/c instruction: Yes Diagnosis: SPOTTING COMPLICATING , THIRD TRIMESTER
== END 2020-02-20 19:20 | disposition home or self-care (01) ==
LOC: FBPOP 17:08
PROVIDERS: ATTEND Obstetrics & Gynecology
DX: O26.853 Spotting complicating pregnancy, third trimester (principal); Z3A.35 35 weeks gestation of pregnancy
CPT/HCPCS: 59025; G0463; 99213

== ENCOUNTER 2020-03-21 06:00 | Inpatient (IN) | payer OTHER ==
[2020-03-21] MEDS ORDERED: CARBOPROST TROMETHAMINE 250 MCG/ML 1 ML AMP IM PRN (06:42)
[2020-03-21] MEDS ORDERED: TERBUTALINE 1 MG/ML VIAL SQ PRN (06:42)
[2020-03-21] MEDS ORDERED: OXYTOCIN 10 UNIT/ML 1 ML VIAL IM PRN (06:42)
[2020-03-21] MEDS ORDERED: METHYLERGONOVINE 0.2 MG/ML 1 ML AMP IM PRN (06:42)
[2020-03-21] MEDS ORDERED: LIDOCAINE 0.5% (PF) 5 MG/ML (50 ML SDV) SQ PRN (06:42)
[2020-03-21 06:56] LABS: Basophils % (A) 0 %; Eosinophils # (A) 0.1 k/uL (0-0.7); Eosinophils % (A) 1 %; HGB 10.4 gm/dL (11.4-16.0); Lymphocytes # (A) 1.9 k/uL (1.0-4.8); Lymphocytes % (A) 20 %; MCH 30.4 pg (25.0-35.0); MCHC 34.6 g/dL (31.0-37.0); MCV 87.7 fL (80.0-100.0); Mean Platelet Volume 6.8; Monocytes # (A) 0.5 k/uL (0-1.0); Monocytes % (A) 5 %; Neutrophils # (A) 6.5 k/uL (1.3-7.7); Neutrophils % (A) 72 %; Platelet Count 219 k/uL (150-450); RBC 3.43 m/uL (3.80-5.40); RDW 13.2 % (11.5-15.5); WBC 9.1 k/uL (3.8-10.6)
[2020-03-21] MEDS: LACTATED RINGERS 1,000 ML IV SCH ×2 (07:01→11:26)
[2020-03-21] MEDS ORDERED: OXYTOCIN 30 UNITS/500 ML NS 30 UNIT in SALINE 1 500ML.BAG IV SCH ×2 (07:15→16:15)
[2020-03-21] MEDS ORDERED: AMPICILLIN 2,000 MG in SODIUM CHLORIDE 0.9% 100 ML IVPB STA (07:17)
[2020-03-21] MEDS ORDERED: fentaNYL (PF) 50 MCG/ML 5 ML AMP ONE (09:32)
[2020-03-21] MEDS ORDERED: ROPIVACAINE 5MG/ML 20ML VIAL ONE (09:32)
[2020-03-21] MEDS ORDERED: SODIUM CHLORIDE 0.9% 100 ML BAG ONE (09:32)
[2020-03-21] MEDS: AMPICILLIN 1,000 MG in SODIUM CHLORIDE 0.9% 50 ML IVPB SCH ×3 (11:25→20:05)
[2020-03-21] MEDS ORDERED: diphenhydrAMINE 25 MG CAP PO PRN (16:08)
[2020-03-21] MEDS ORDERED: ZOLPIDEM 5 MG TAB PO PRN (16:08)
[2020-03-21] MEDS ORDERED: LANOLIN CREAM 5 GM TUBE TOPICAL PRN (16:08)
[2020-03-21] MEDS ORDERED: SIMETHICONE 80 MG CHEWABLE PO PRN (16:08)
[2020-03-21] MEDS ORDERED: diphenhydrAMINE 50 MG CAP PO PRN (16:08)
[2020-03-21] MEDS ORDERED: HYDROCORTISONE 2.5% RECTAL CREAM 30 GM TUBE RECTAL PRN (16:08)
[2020-03-21] MEDS ORDERED: BENZOCAINE/MENTHOL SPRAY 1 GM/SPRAY AEROSOL TOPICAL PRN (16:08)
[2020-03-21] MEDS ORDERED: diphenhydrAMINE 50 MG/ML 1 ML VIAL IVP PRN ×2 (16:08)
[2020-03-21] MEDS: IBUPROFEN 600 MG TAB PO PRN (16:40)
--- NOTE | 2020-03-21 17:24 | P.HPOB ---
History of Present Illness H&P Date: 03/21/20 Chief Complaint: Induction of labor 24 year old G 3 P0 presents for induction of labor at 40 weeks and 1 day. Her cervix is 3 cm dilated, 90% effaced, and -1 station. She is severiano irregularly. heart tones 135 with moderate variability and reactive. Review of Systems All systems: negative Constitutional: Denies chills, Denies fever Eyes: denies blurred vision, denies pain Ears, nose, mouth and throat: Denies headache, Denies sore throat Cardiovascular: Denies chest pain, Denies shortness of breath Respiratory: Denies cough Gastrointestinal: Denies abdominal pain, Denies diarrhea, Denies nausea, Denies vomiting Genitourinary: Denies dysuria, Denies hematuria Musculoskeletal: Denies myalgias Integumentary: Denies pruritus, Denies rash Neurological: Denies numbness, Denies weakness Psychiatric: Denies anxiety, Denies depression Endocrine: Denies fatigue, Denies weight change Past Medical History Past Medical History: No Reported History Additional Past Medical History / Comment(s): Obstetric history: First 2 pregnancies were spontaneous abortions. This is her third and she's had care with me since 12 weeks gestation. Blood type is O+, antibodies negative, RPR nonreactive, hepatitis B-, GBS positive, rubella immune. She did see [facility] for her history of hepatitis C. History of Any Multi-Drug Resistant Organisms: None Reported Past Surgical History: No Surgical Hx Reported Additional Past Surgical History / Comment(s): retained Nexplanon removed from Left upper arm Past Anesthesia/Blood Transfusion Reactions: No Reported Reaction Past Psychological History: No Psychological Hx Reported Smoking Status: Never smoker Past Alcohol Use History: None Reported Past Drug Use History: Methamphetamine - Past Family History Mother Family Medical History: No Reported History Medications and Allergies Home Medications Medication Instructions Recorded Confirmed Type Pnv 11/Iron Fum/Folic Acid/Om3 1 each PO 02/20/20 History [Virt-Sacha Dha Softgel] Allergies Allergy/AdvReac Type Severity Reaction Status Date / Time No Known Allergies Allergy Verified 03/21/20 06:35 Exam Osteopathic Statement: *. No significant issues noted on an osteopathic structural exam other than those noted in the History and Physical/Consult. Vital Signs Temp Pulse Resp BP 03/21/20 16:45 84 16 116/82 03/21/20 16:10 83 16 118/82 03/21/20 15:55 86 16 119/72 03/21/20 15:40 88 16 114/65 03/21/20 15:25 82 16 112/68 03/21/20 15:10 97.5 F L 101 H 16 116/67 03/21/20 08:06 96.7 F L 86 16 132/76 Intake and Output 03/21/20 03/21/20 03/21/20 06:59 14:59 22:59 Other: Weight 77.111 kg 77.111 kg Heart: Regular rate and rhythm Lungs: Clear to auscultation bilaterally Abdomen: Soft, nontender Extremities: Negative Homans sign Results Result Diagrams: 03/21/20 06:31 Abnormal Lab Results - Last 24 Hours (Table) 03/21/20 Range/Units 06:31 RBC 3.43 L (3.80-5.40) m/uL Hgb 10.4 L (11.4-16.0) gm/dL Hct 30.0 L (34.0-46.0) % Assessment and Plan (1) Elective induction of labor planned Current Visit: Yes Status: Acute Code(s): [id number] - SNOMED Code(s): 937622034 (2) Hepatitis C Current Visit: Yes Status: Acute Code(s): B19.20 - UNSPECIFIED VIRAL HEPATITIS C WITHOUT HEPATIC COMA SNOMED Code(s): 96831345 (3) Positive GBS test Current Visit: Yes Status: Acute Code(s): B95.1 - STREPTOCOCCUS, GROUP B, CAUSING DISEASES [facility] SNOMED Code(s): 013538044 Plan: 1. Induction of labor with amniotomy and Pitocin 2. Antibiotics for GBS prophylaxis 3. Anticipate normal vaginal delivery.
--- NOTE | 2020-03-21 17:28 | P.PROBDLV ---
Vaginal Delivery Note - . Vaginal Delivery Note: 24-year-old presents at 40 weeks and 1 day for induction of labor. Her cervix was 3 cm dilated, 90% effaced, -1 station. She was severiano irregularly. heart tones 135 with moderate variability and reactive. Pitocin was started. Amniotomy performed at 7:45 AM and clear fluid noted. She did get an epidural soon thereafter and was comfortable. Her cervix was completely dilated at 1353. She pushed, delivered a viable female over intact perineum under epidural anesthesia at 1450. Head delivered OA, nuchal cord 1 easily reduced, anterior shoulder delivered gentle downward guidance followed by posterior shoulder and rest of body. Nose and mouth bulb suctioned, cord clamped and cut, placed mother's abdomen. Apgars 9, 9, weight 7 pounds 4.4 ounces. Placenta delivered spontaneously, intact with three-vessel cord at 1454. Vagina, cervix, perineum inspected. Bilateral labial lacerations were repaired with 3-0 Vicryl. Estimated blood loss 150 mL. Mother and baby in stable condition.
[2020-03-21] MEDS: SENNOSIDES-DOCUSATE SODIUM 1 EACH TAB PO SCH (20:05)
[2020-03-21] MEDS: ACETAMINOPHEN TAB 325 MG TAB PO PRN (20:05)
[2020-03-22] MEDS: IBUPROFEN 600 MG TAB PO PRN ×2 (03:54→12:37)
[2020-03-22 06:58] LABS: Basophils % (A) 0 %; Eosinophils # (A) 0.1 k/uL (0-0.7); Eosinophils % (A) 1 %; HCT 28.4 % (34.0-46.0); HGB 9.5 gm/dL (11.4-16.0); Lymphocytes # (A) 1.6 k/uL (1.0-4.8); Lymphocytes % (A) 13 %; MCH 29.6 pg (25.0-35.0); MCHC 33.4 g/dL (31.0-37.0); MCV 88.8 fL (80.0-100.0); Mean Platelet Volume 7.9; Monocytes # (A) 0.6 k/uL (0-1.0); Monocytes % (A) 5 %; Neutrophils # (A) 9.7 k/uL (1.3-7.7); Neutrophils % (A) 79 %; Platelet Count 182 k/uL (150-450); RBC 3.19 m/uL (3.80-5.40); RDW 13.2 % (11.5-15.5); WBC 12.2 k/uL (3.8-10.6)
[2020-03-22] MEDS: SENNOSIDES-DOCUSATE SODIUM 1 EACH TAB PO SCH (08:52)
[2020-03-22] MEDS: ACETAMINOPHEN TAB 325 MG TAB PO PRN (08:52)
--- NOTE | 2020-03-22 09:21 | P.DS ---
Providers Date of admission: 03/21/20 06:07 Expected date of discharge: 03/22/20 Attending physician: Elle Romero Primary care physician: Stated None - Discharge Diagnosis(es) (1) Elective induction of labor planned Current Visit: Yes Status: Resolved (2) Hepatitis C Current Visit: Yes Status: Chronic (3) Positive GBS test Current Visit: Yes Status: Resolved (4) Normal vaginal delivery Current Visit: Yes Status: Acute Hospital Course: Patient presented for induction of labor at 40 weeks and 1 day. She underwent a normal vaginal delivery. Her course was uncomplicated. She'll be discharged home day #1 in stable condition to follow-up with me in 6 weeks. Plan - Discharge Summary New Discharge Prescriptions: New Ibuprofen [Motrin] 600 mg PO Q6HR PRN #30 tab PRN Reason: Mild Pain Or Fever >= 100.5 No Action Pnv 11/Iron Fum/Folic Acid/Om3 [Virt-Sacha Dha Softgel] 1 each PO Discharge Medication List Pnv 11/Iron Fum/Folic Acid/Om3 [Virt-Sacha Dha Softgel] 1 each PO 02/20/20 [History] Ibuprofen [Motrin] 600 mg PO Q6HR PRN #30 tab 03/22/20 [Rx] Follow up Appointment(s)/Referral(s): Elle Romero DO [Doctor of Osteopathic Medicine] - 6 Weeks Discharge Disposition: HOME SELF-CARE
[2020-03-22 09:29] VITALS: BP 108/68; PULSE 79; RESP 16; TEMP 98.5
== END 2020-03-22 15:45 | disposition home or self-care (01) | DRG 807 ==
LOC: 4FBP 06:07
PROVIDERS: ADMIT Obstetrics & Gynecology; ATTEND Obstetrics & Gynecology
PROC: 3E0R3NZ Introduction of Analgesics, Hypnotics, Sedatives into Spinal Canal, Percutaneous Approach (ICD-10-PCS; principal; 2020-03-21)
PROC: 3E033VJ Introduction of Other Hormone into Peripheral Vein, Percutaneous Approach (ICD-10-PCS; principal; 2020-03-21)
PROC: 0HQ9XZZ Repair Perineum Skin, External Approach (ICD-10-PCS; principal; 2020-03-21)
PROC: 10907ZC Drainage of Amniotic Fluid, Therapeutic from Products of Conception, Via Natural or Artificial Opening (ICD-10-PCS; principal; 2020-03-21)
PROC: 10E0XZZ Delivery of Products of Conception, External Approach (ICD-10-PCS; principal; 2020-03-21)
PROC: 00HU33Z Insertion of Infusion Device into Spinal Canal, Percutaneous Approach (ICD-10-PCS; principal; 2020-03-21)
DX: O98.42 Viral hepatitis complicating childbirth (principal); Z37.0 Single live birth; O69.81X0 Labor and delivery complicated by cord around neck, without compression, not applicable or unspecified; B19.20 Unspecified viral hepatitis C without hepatic coma; O99.824 Streptococcus B carrier state complicating childbirth; O70.0 First degree perineal laceration during delivery; Z3A.40 40 weeks gestation of pregnancy
CPT/HCPCS: 85025; 86850; 86900; 86901

== ENCOUNTER 2020-03-24 21:54 | Outpatient (CLI) | payer OTHER ==
[2020-03-24] MEDS ORDERED: SUMAtriptan succinate 25 MG TAB PO STA (22:06)
[2020-03-24] MEDS ORDERED: SUMAtriptan succinate 50 MG TAB PO STA (22:16)
[2020-03-25 00:59] VITALS: BP 128/81; PULSE 84; RESP 16; TEMP 97.3
--- NOTE | 2020-04-02 20:20 | P.MSEPDOC ---
Presenting Problems - Arrival Data Date of Arrival on Unit: 03/13/20 Time of Arrival on Unit: 21:54 Mode of Transport: Ambulatory - Complaint OB-Reason for Admission/Chief Complaint: Headache Comment: pt. to tirage due to headache 12/18 that stated around 10am. today, and is unrelieved with tylenol and motrin, Vitals reviewed, patient is 3 days. . Medical History - Gestational Age Gestational Age by KAREN (wks/days): 40 Weeks and 3 Days Review of Systems - Review of Systems Constitutional: No problems Breast: No problems ENT: No problems Cardiovascular: No problems Respiratory: No problems Gastrointestinal: No problems Genitourinary: No problems Musculoskeletal: No problems Neurological: No problems Skin: No problems Vital Signs - Temperature Temperature: 97.3 F Temperature Source: Temporal Artery Scan - Pulse Pulse Oximetery Pulse Rate: 84 Pulse Assessment Method: Automatic Cuff - Respirations Respiratory Rate: 16 Oxygen Delivery Method: Room Air - Blood Pressure Right Arm Sitting Blood Pressure: 128/81 Blood Pressure Mean: 96 Blood Pressure Source: Automatic Cuff Medical Screen Scoring (Pre) - Maternal Vital Signs Maternal Temperature: N/A Maternal Blood Pressure: N/A Signs of Preeclampsia: Headache = 1 - Total Score - Baby A Total Score - Baby A: 1 - Total Score - Baby B Total Score - Baby B: 1 - Total Score - Baby C Total Score - Baby C: 1 - Level of Risk - Baby A Level of Risk - Baby A: Low (0-5) - Level of Risk - Baby B Level of Risk - Baby B: Low (0-5) - Level of Risk - Baby C Level of Risk - Baby C: Low (0-5) Physician Notification (Pre) - Physician Notified Physician Notified Date: 03/24/20 Physician Notified Time: 21:50 New Order Received: Yes (Imitrex 100mg) - Notification Comment Comment: Orders to give Imitrex 100mg and discharge patient home and to follow up in 6 weeks Disposition - Disposition OB Disposition: Discharge to home Discharge Date: 03/24/20 Discharge Time: 23:11 I agree with the RN Medical Screening Exam: Yes Case reviewed; plan agreed upon as documented in EMR&OBIX.: Yes Diagnosis: HEADACHE, UNSPECIFIED
== END 2020-03-24 23:11 | disposition home or self-care (01) ==
LOC: FBPOP 21:54
PROVIDERS: ATTEND Obstetrics & Gynecology
DX: O99.891 Other specified diseases and conditions complicating pregnancy (principal); Z3A.40 40 weeks gestation of pregnancy
CPT/HCPCS: 99213

== ENCOUNTER 2020-09-13 14:02 | Emergency (ER) | payer OTHER ==
[2020-09-13] MEDS ORDERED: ACETAMINOPHEN TAB 500 MG TAB PO STA (14:49)
--- NOTE | 2020-09-13 15:05 | ED ---
General Adult HPI - General Chief complaint: ENT Stated complaint: Sorethroat,fever,vomiting Time Seen by Provider: 09/13/20 14:45 Source: patient, RN notes reviewed, old records reviewed Mode of arrival: ambulatory Limitations: no limitations - History of Present Illness Initial comments: 24-year-old female presenting for evaluation of sore throat, body aches, fever. She has had some episodes of nausea associated with this. No abdominal pain. No dysuria or hematuria. No flank pain. She has a mild headache. She states her sore throat is bilateral. No contact with coronavirus. Patient is otherwise healthy. - Related Data Home Medications Medication Instructions Recorded Confirmed Pnv 11/Iron Fum/Folic Acid/Om3 1 each PO DAILY 02/20/20 03/24/20 [Virt-Sacha Dha Softgel] Acetaminophen Tab [Tylenol] 2 tab PO DAILY PRN 03/24/20 03/25/20 Previous Rx's Medication Instructions Recorded Ibuprofen [Motrin] 600 mg PO Q6HR PRN #30 tab 03/22/20 Cephalexin [Keflex] 500 mg PO QID 10 Days #40 cap 09/13/20 Allergies Allergy/AdvReac Type Severity Reaction Status Date / Time No Known Allergies Allergy Verified 09/13/20 14:28 Review of Systems ROS Statement: Those systems with pertinent positive or pertinent negative responses have been documented in the HPI. ROS Other: All systems not noted in ROS Statement are negative. Past Medical History Past Medical History: No Reported History Additional Past Medical History / Comment(s): Obstetric history: First 2 pregnancies were spontaneous abortions. This is her third and she's had care with wi since 12 weeks gestation. Blood type is O+, antibodies negative, RPR nonreactive, hepatitis B-, GBS positive, rubella immune. She did see [facility] for her history of hepatitis C. History of Any Multi-Drug Resistant Organisms: None Reported Past Surgical History: No Surgical Hx Reported Additional Past Surgical History / Comment(s): retained Nexplanon removed from Left upper arm Past Anesthesia/Blood Transfusion Reactions: No Reported Reaction Past Psychological History: No Psychological Hx Reported Smoking Status: Former smoker Past Alcohol Use History: None Reported Past Drug Use History: None Reported - Past Family History Mother Family Medical History: No Reported History General Exam Limitations: no limitations General appearance: alert, in no apparent distress Head exam: Present: atraumatic, normocephalic Eye exam: Present: normal appearance, PERRL ENT exam: Absent: normal oropharynx (Bilateral tonsillar swelling, erythema, exudate.) Neck exam: Present: normal inspection. Absent: tenderness, meningismus Respiratory exam: Present: normal lung sounds bilaterally. Absent: respiratory distress, wheezes Cardiovascular Exam: Present: normal rhythm, tachycardia GI/Abdominal exam: Present: soft. Absent: distended, tenderness, guarding Extremities exam: Present: normal inspection, normal capillary refill. Absent: pedal edema, calf tenderness Neurological exam: Present: alert, oriented X3, CN II-XII intact. Absent: motor sensory deficit Psychiatric exam: Present: normal affect, normal mood Skin exam: Present: warm, dry, intact. Absent: cyanosis, diaphoretic Course Vital Signs 09/13/20 14:25 Temperature 100.7 F H Pulse Rate 118 H Respiratory 20 Rate Blood Pressure 130/69 O2 Sat by Pulse 96 Oximetry Medical Decision Making - Medical Decision Making 24-year-old female with sore throat, myalgia, fever. She has a low-grade fever upon arrival. She does not appear toxic. Her main complaint is sore throat. She has no flank pain, no abdominal pain, no dysuria or hematuria. Urinalysis is performed which is suggestive of acute infection. Her rapid strep is negative although clinically she does have exudative pharyngitis. After Tylenol she feeling somewhat better. She will be prescribed antibiotics for UTI. Throat culture pending. Return parameters discussed. She will maintain oral hydration at home. - Lab Data Lab Results 09/13/20 09/13/20 09/13/20 Range/Units 14:55 14:55 14:55 Urine Color Yellow Urine Appearance Cloudy H (Clear) Urine pH 6.0 (5.0-8.0) Ur Specific Gill 1.026 (1.001-1.035) Urine Protein Trace H (Negative) Urine Glucose (UA) Negative (Negative) Urine Ketones 3+ H (Negative) Urine Blood Small H (Negative) Urine Nitrite Negative (Negative) Urine Bilirubin Negative (Negative) Urine Urobilinogen 2.0 (<2.0) mg/dL Ur Leukocyte Esterase Large H (Negative) Urine RBC 166 H (0-5) /hpf Urine WBC >182 H (0-5) /hpf Ur Squamous Epith Cells 12 H (0-4) /hpf Urine Bacteria Occasional H (None) /hpf Urine Mucus Occasional H (None) /hpf Urine HCG, Qual Not Detected (Not Detectd) Group A Strep Rapid Negative (Negative) Disposition Clinical Impression: Sore throat, Acute viral pharyngitis, UTI (urinary tract infection) Disposition: HOME SELF-CARE Condition: Good Instructions (If sedation given, give patient instructions): Pharyngitis (ED), Urinary Tract Infection in Women (ED) Additional Instructions: Please take Tylenol and Motrin for fever and body aches. Please drink plenty of fluid. Please start antibiotics today. Please return with any worsening or changing symptoms. Prescriptions: Cephalexin [Keflex] 500 mg PO QID 10 Days #40 cap Is patient prescribed a controlled substance at d/c from ED?: No Referrals: Mykel Romano MD [Primary Care Provider] - 1-2 days Time of Disposition: 15:53
[2020-09-13 15:37] LABS: Appearance,Urine Cloudy (Clear); Bacteria,Urine Occasional /hpf; Bilirubin,Urine Negative (Negative); Blood,Urine Small (Negative); Color,Urine Yellow; Glucose,Urine (UA) Negative (Negative); Ketones,Urine 3+ (Negative); Leukocyte Esterase,Urine Large (Negative); Mucus,Urine Occasional /hpf; Nitrite,Urine Negative (Negative); Protein,Urine Trace (Negative); RBC,Urine 166 /hpf (0-5); Specific Gravity,Urine 1.026 (1.001-1.035); Squamous Epithelial Cell,Urine 12 /hpf (0-4); WBC,Urine >182 /hpf (0-5)
[2020-09-13] MEDS ORDERED: CEPHALEXIN 500 MG CAP PO STA (15:55)
[2020-09-13] MEDS ORDERED: IBUPROFEN 600 MG TAB PO STA (16:04)
[2020-09-13 16:30] VITALS: BP 110/75; PULSE 105; RESP 18; TEMP 101.6
== END 2020-09-13 16:39 | disposition home or self-care (01) ==
LOC: EC 14:02
DX: J02.9 Acute pharyngitis, unspecified (principal); N39.0 Urinary tract infection, site not specified; Z87.891 Personal history of nicotine dependence
CPT/HCPCS: 81001; 81025; 87081; 87086; 87430; 99283

== ENCOUNTER 2021-03-07 10:44 | Emergency (ER) | payer OTHER ==
[2021-03-07] MEDS ORDERED: ACETAMINOPHEN TAB 325 MG TAB PO STA (11:09)
[2021-03-07] MEDS ORDERED: SODIUM CHLORIDE 0.9% 1,000 ML IV STA (11:09)
--- NOTE | 2021-03-07 11:16 | ED ---
General Adult HPI - General Chief complaint: Headache Stated complaint: 24wks preg, dehydrated Time Seen by Provider: 03/07/21 11:05 Source: patient, RN notes reviewed, old records reviewed Mode of arrival: ambulatory Limitations: no limitations - History of Present Illness Initial comments: 25-year-old well-appearing female, alert and oriented 4, presents to the emergency room with complaints of headache, fatigue, body aches and chills that started yesterday. She states that she has not been vaccinated against coronavirus. She is 24 weeks . She denies any abdominal pain or vaginal bleeding. She states that she does feel the baby move. States that she feels like she is dehydrated. She has been having reflux with this and a decreased intake. She sees Dr. Romero for the is taking vitamins. She is a nonsmoker. She has not been exposed to any sick contacts. -: days(s) (2) Location: head Radiation: non-radiation Severity scale (1-10): 6 Quality: aching Consistency: constant Improves with: none Worsens with: none Associated Symptoms: loss of appetite, malaise, nausea/vomiting Treatments Prior to Arrival: none - Related Data Home Medications Medication Instructions Recorded Confirmed Famotidine [Pepcid] 20 mg PO HS 03/07/21 03/07/21 Allergies Allergy/AdvReac Type Severity Reaction Status Date / Time No Known Allergies Allergy Verified 03/07/21 11:21 Review of Systems ROS Statement: Those systems with pertinent positive or pertinent negative responses have been documented in the HPI. ROS Other: All systems not noted in ROS Statement are negative. Past Medical History Past Medical History: No Reported History Additional Past Medical History / Comment(s): Obstetric history: First 2 pregnancies were spontaneous abortions. This is her third and she's had care with me since 12 weeks gestation. Blood type is O+, antibodies negative, RPR nonreactive, hepatitis B-, GBS positive, rubella immune. She did see [facility] for her history of hepatitis C. History of Any Multi-Drug Resistant Organisms: None Reported Past Surgical History: No Surgical Hx Reported Additional Past Surgical History / Comment(s): retained Nexplanon removed from Left upper arm Past Anesthesia/Blood Transfusion Reactions: No Reported Reaction Past Psychological History: No Psychological Hx Reported Smoking Status: Former smoker Past Alcohol Use History: None Reported Past Drug Use History: None Reported - Past Family History Mother Family Medical History: No Reported History General Exam Limitations: no limitations General appearance: alert, in no apparent distress Head exam: Present: atraumatic, normocephalic, normal inspection Eye exam: Present: normal appearance, EOMI. Absent: scleral icterus, conjunctival injection, periorbital swelling, periorbital tenderness ENT exam: Present: normal exam, normal oropharynx, mucous membranes moist Neck exam: Present: normal inspection, full ROM. Absent: tenderness, men ingismus, lymphadenopathy, thyromegaly Respiratory exam: Present: normal lung sounds bilaterally. Absent: respiratory distress, wheezes, rales, rhonchi, stridor, chest wall tenderness, accessory muscle use Cardiovascular Exam: Present: tachycardia, normal heart sounds. Absent: JVD GI/Abdominal exam: Present: soft, distended. Absent: tenderness Extremities exam: Present: normal inspection, full ROM, normal capillary refill. Absent: tenderness, pedal edema, joint swelling, calf tenderness Back exam: Present: normal inspection, full ROM, other (sacral faun tail nevus). Absent: tenderness, CVA tenderness (R), CVA tenderness (L), rash noted Neurological exam: Present: alert, oriented X3 Psychiatric exam: Present: normal affect, normal mood Skin exam: Present: warm, dry, intact, normal color. Absent: rash, cyanosis, diaphoretic, petechiae Course Vital Signs 03/07/21 03/07/21 03/07/21 10:54 12:57 13:59 Temperature 99.8 F H 98.8 F Pulse Rate 124 H 121 H 115 H Respiratory 17 18 18 Rate Blood Pressure 100/65 109/71 105/64 O2 Sat by Pulse 97 96 96 Oximetry 03/07/21 03/07/21 14:33 15:38 Temperature 98.8 F Pulse Rate 114 H 120 H Respiratory 18 18 Rate Blood Pressure 106/62 105/85 O2 Sat by Pulse 96 100 Oximetry Medical Decision Making - Medical Decision Making 25-year-old female presents with complaints of headache, fatigue, body aches and chills that started yesterday. She states that she has not been vaccinated against coronavirus. She is 24 weeks . She denies any abdominal pain or vaginal bleeding. She is covid positive. She was agreeable to receiving the monoclonal antibodies and tolerates them well. Urine was sent for culture, contaminated specimen. Magnesium was low and she was given Mag-Ox in the emergency room. She is feeling better after IV fluids. Her abdomen is soft. She denies any vaginal bleeding or abdominal pain. heart tones were assessed by the [facility] nurse and range from 140-162. She was instructed to return to emergency room for any new or worsening symptoms. Case discussed with Dr. Craig - Lab Data Result diagrams: 03/07/21 11:35 03/07/21 11:35 Lab Results 03/07/21 03/07/21 03/07/21 Range/Units 11:35 11:35 11:35 WBC 5.1 (3.8-10.6) k/uL RBC 3.14 L (3.80-5.40) m/uL Hgb 9.9 L (11.4-16.0) gm/dL Hct 29.6 L (34.0-46.0) % MCV 94.3 (80.0-100.0) fL MCH 31.5 (25.0-35.0) pg MCHC 33.4 (31.0-37.0) g/dL RDW 12.9 (11.5-15.5) % Plt Count 167 (150-450) k/uL MPV 7.4 Neutrophils % 84 % Lymphocytes % 5 % Monocytes % 8 % Eosinophils % 0 % Basophils % 0 % Neutrophils # 4.3 (1.3-7.7) k/uL Lymphocytes # 0.3 L (1.0-4.8) k/uL Monocytes # 0.4 (0-1.0) k/uL Eosinophils # 0.0 (0-0.7) k/uL Basophils # 0.0 (0-0.2) k/uL Sodium 133 L (137-145) mmol/L Potassium 3.7 (3.5-5.1) mmol/L Chloride 106 (98-107) mmol/L Carbon Dioxide 21 L (22-30) mmol/L Anion Gap 6 mmol/L BUN 13 (7-17) mg/dL Creatinine 0.58 (0.52-1.04) mg/dL Est GFR (CKD-EPI)AfAm >90 (>60 ml/min/1.73 sqM) Est GFR (CKD-EPI)NonAf >90 (>60 ml/min/1.73 sqM) Glucose 90 (74-99) mg/dL Calcium 8.6 (8.4-10.2) mg/dL Magnesium 1.5 L (1.6-2.3) mg/dL Total Bilirubin 0.3 (0.2-1.3) mg/dL AST 35 (14-36) U/L ALT 23 (4-34) U/L Alkaline Phosphatase 77 (38-126) U/L Total Protein 6.3 (6.3-8.2) g/dL Albumin 3.2 L (3.5-5.0) g/dL Urine Color Yellow Urine Appearance Cloudy H (Clear) Urine pH 6.5 (5.0-8.0) Ur Specific Kaplan 1.026 (1.001-1.035) Urine Protein 1+ H (Negative) Urine Glucose (UA) Negative (Negative) Urine Ketones 2+ H (Negative) Urine Blood Negative (Negative) Urine Nitrite Negative (Negative) Urine Bilirubin Negative (Negative) Urine Urobilinogen <2.0 (<2.0) mg/dL Ur Leukocyte Esterase Large H (Negative) Urine RBC 1 (0-5) /hpf Urine WBC 7 H (0-5) /hpf Ur Squamous Epith Cells 9 H (0-4) /hpf Urine Bacteria Rare H (None) /hpf Urine Mucus Occasional H (None) /hpf Influenza Type A (PCR) (Not Detectd) Influenza Type B (PCR) (Not Detectd) RSV (PCR) (Not Detectd) SARS-CoV-2 (PCR) (Not Detectd) 03/07/21 Range/Units 11:35 WBC (3.8-10.6) k/uL RBC (3.80-5.40) m/uL Hgb (11.4-16.0) gm/dL Hct (34.0-46.0) % MCV (80.0-100.0) fL MCH (25.0-35.0) pg MCHC (31.0-37.0) g/dL RDW (11.5-15.5) % Plt Count (150-450) k/uL MPV Neutrophils % % Lymphocytes % % Monocytes % % Eosinophils % % Basophils % % Neutrophils # (1.3-7.7) k/uL Lymphocytes # (1.0-4.8) k/uL Monocytes # (0-1.0) k/uL Eosinophils # (0-0.7) k/uL Basophils # (0-0.2) k/uL Sodium (137-145) mmol/L Potassium (3.5-5.1) mmol/L Chloride (98-107) mmol/L Carbon Dioxide (22-30) mmol/L Anion Gap mmol/L BUN (7-17) mg/dL Creatinine (0.52-1.04) mg/dL Est GFR (CKD-EPI)AfAm (>60 ml/min/1.73 sqM) Est GFR (CKD-EPI)NonAf (>60 ml/min/1.73 sqM) Glucose (74-99) mg/dL Calcium (8.4-10.2) mg/dL Magnesium (1.6-2.3) mg/dL Total Bilirubin (0.2-1.3) mg/dL AST (14-36) U/L ALT (4-34) U/L Alkaline Phosphatase (38-126) U/L Total Protein (6.3-8.2) g/dL Albumin (3.5-5.0) g/dL Urine Color Urine Appearance (Clear) Urine pH (5.0-8.0) Ur Specific Kaplan (1.001-1.035) Urine Protein (Negative) Urine Glucose (UA) (Negative) Urine Ketones (Negative) Urine Blood (Negative) Urine Nitrite (Negative) Urine Bilirubin (Negative) Urine Urobilinogen (<2.0) mg/dL Ur Leukocyte Esterase (Negative) Urine RBC (0-5) /hpf Urine WBC (0-5) /hpf Ur Squamous Epith Cells (0-4) /hpf Urine Bacteria (None) /hpf Urine Mucus (None) /hpf Influenza Type A (PCR) Not Detected (Not Detectd) Influenza Type B (PCR) Not Detected (Not Detectd) RSV (PCR) Not Detected (Not Detectd) SARS-CoV-2 (PCR) Detected A (Not Detectd) Disposition Clinical Impression: COVID-19 Disposition: HOME SELF-CARE Condition: Good Instructions (If sedation given, give patient instructions): Coronavirus Disease 2019 (COVID-19) Additional Instructions: Increase your fluid intake. Tylenol as needed for fever and body aches. Follow-up with your [facility] this week. Return to the emergency room with any new or worsening symptoms. Is patient prescribed a controlled substance at d/c from ED?: No Referrals: Mykel Romano MD [Primary Care Provider] - 1-2 days Time of Disposition: 14:54
[2021-03-07 12:07] LABS: Basophils % (A) 0 %; Eosinophils % (A) 0 %; HCT 29.6 % (34.0-46.0); HGB 9.9 gm/dL (11.4-16.0); Lymphocytes # (A) 0.3 k/uL (1.0-4.8); Lymphocytes % (A) 5 %; MCH 31.5 pg (25.0-35.0); MCHC 33.4 g/dL (31.0-37.0); MCV 94.3 fL (80.0-100.0); Mean Platelet Volume 7.4; Monocytes # (A) 0.4 k/uL (0-1.0); Monocytes % (A) 8 %; Neutrophils # (A) 4.3 k/uL (1.3-7.7); Neutrophils % (A) 84 %; Platelet Count 167 k/uL (150-450); RBC 3.14 m/uL (3.80-5.40); RDW 12.9 % (11.5-15.5); WBC 5.1 k/uL (3.8-10.6)
[2021-03-07 12:12] LABS: Appearance,Urine Cloudy (Clear); Bacteria,Urine Rare /hpf; Bilirubin,Urine Negative (Negative); Blood,Urine Negative (Negative); Color,Urine Yellow; Glucose,Urine (UA) Negative (Negative); Ketones,Urine 2+ (Negative); Leukocyte Esterase,Urine Large (Negative); Mucus,Urine Occasional /hpf; Nitrite,Urine Negative (Negative); PH, Urine 6.5 (5.0-8.0); Protein,Urine 1+ (Negative); RBC,Urine 1 /hpf (0-5); Specific Gravity,Urine 1.026 (1.001-1.035); Squamous Epithelial Cell,Urine 9 /hpf (0-4); Urobilinogen,Urine <2.0 mg/dL (<2.0); WBC,Urine 7 /hpf (0-5)
[2021-03-07 12:27] LABS: ALT 23 U/L (4-34); AST 35 U/L (14-36); African American GFR (CKD) >90 (>60 ml/min/1.73 sqM); Albumin 3.2 g/dL (3.5-5.0); Alkaline Phosphatase 77 U/L (38-126); Anion Gap 6 mmol/L; Blood Urea Nitrogen 13 mg/dL (7-17); Calcium 8.6 mg/dL (8.4-10.2); Carbon Dioxide 21 mmol/L (22-30); Chloride 106 mmol/L (98-107); Glucose 90 mg/dL (74-99); Magnesium 1.5 mg/dL (1.6-2.3); Non-African American GFR(CKD) >90 (>60 ml/min/1.73 sqM); Potassium 3.7 mmol/L (3.5-5.1); Sodium 133 mmol/L (137-145); Total Bilirubin 0.3 mg/dL (0.2-1.3); Total Protein 6.3 g/dL (6.3-8.2)
[2021-03-07] MEDS ORDERED: SODIUM CHLORIDE 0.9% 50 ML IVPB ONE (13:15)
[2021-03-07] MEDS ORDERED: BAMLANIVIMAB (EUA) 700 MG, ETESEVIMAB (EUA) 1,400 MG in SODIUM CHLORIDE 0.9% 100 ML IVPB ONE (13:15)
[2021-03-07] MEDS ORDERED: MAGNESIUM OXIDE 400 MG TAB PO STA (13:23)
[2021-03-07 13:39] VITALS: RESP 18
[2021-03-07 13:59] VITALS: TEMP 98.8
[2021-03-07 15:39] VITALS: BP 105/85; PULSE 120
== END 2021-03-07 15:45 | disposition home or self-care (01) ==
LOC: EC 10:44
DX: O98.512 Other viral diseases complicating pregnancy, second trimester (principal); U07.1 COVID-19; Z87.891 Personal history of nicotine dependence; Z3A.24 24 weeks gestation of pregnancy
CPT/HCPCS: 36415; 80053; 83735; 85025; 81001; 87636; 99284; 96360; 96361; J3490

== ENCOUNTER 2021-06-16 06:00 | Inpatient (IN) | payer OTHER ==
[2021-06-16] MEDS ORDERED: TERBUTALINE 1 MG/ML VIAL SQ PRN (06:25)
[2021-06-16] MEDS ORDERED: METHYLERGONOVINE 0.2 MG/ML 1 ML AMP IM PRN (06:25)
[2021-06-16] MEDS ORDERED: LIDOCAINE 1% (PF) 10 MG/ML (30 ML SDV) SQ PRN (06:25)
[2021-06-16] MEDS ORDERED: OXYTOCIN 10 UNIT/ML 1 ML VIAL IM PRN (06:25)
[2021-06-16] MEDS ORDERED: CARBOPROST TROMETHAMINE 250 MCG/ML 1 ML AMP IM PRN (06:25)
[2021-06-16] MEDS ORDERED: OXYTOCIN 30 UNITS/500 ML NS 30 UNIT in SALINE 1 500ML.BAG IV SCH (06:25)
[2021-06-16] MEDS: LACTATED RINGERS 1,000 ML IV SCH ×2 (06:43→09:21)
[2021-06-16 07:19] LABS: Basophils % (A) 0 %; Eosinophils # (A) 0.1 k/uL (0-0.7); Eosinophils % (A) 1 %; HCT 30.1 % (34.0-46.0); HGB 9.2 gm/dL (11.4-16.0); Hypochromasia Moderate; Lymphocytes # (A) 1.8 k/uL (1.0-4.8); Lymphocytes % (A) 17 %; MCH 25.6 pg (25.0-35.0); MCHC 30.7 g/dL (31.0-37.0); MCV 83.2 fL (80.0-100.0); Mean Platelet Volume 7.5; Monocytes # (A) 0.6 k/uL (0-1.0); Monocytes % (A) 5 %; Neutrophils # (A) 8.2 k/uL (1.3-7.7); Neutrophils % (A) 75 %; Platelet Count 226 k/uL (150-450); Poikilocytosis Slight; RBC 3.61 m/uL (3.80-5.40); RDW 14.8 % (11.5-15.5); WBC 10.9 k/uL (3.8-10.6)
[2021-06-16] MEDS ORDERED: ROPIVACAINE 5MG/ML 20ML VIAL ONE (09:11)
[2021-06-16] MEDS ORDERED: SODIUM CHLORIDE 0.9% 100 ML BAG ONE (09:11)
[2021-06-16] MEDS ORDERED: fentaNYL (PF) 50 MCG/ML 5 ML AMP ONE (09:11)
[2021-06-16] MEDS ORDERED: LANOLIN CREAM 5 GM TUBE TOPICAL PRN (15:08)
[2021-06-16] MEDS ORDERED: ZOLPIDEM 5 MG TAB PO PRN (15:08)
[2021-06-16] MEDS ORDERED: SIMETHICONE 80 MG CHEWABLE PO PRN (15:08)
[2021-06-16] MEDS ORDERED: diphenhydrAMINE 50 MG CAP PO PRN (15:08)
[2021-06-16] MEDS ORDERED: ACETAMINOPHEN TAB 325 MG TAB PO PRN (15:08)
[2021-06-16] MEDS ORDERED: diphenhydrAMINE 25 MG CAP PO PRN (15:08)
[2021-06-16] MEDS: IBUPROFEN 600 MG TAB PO PRN ×2 (15:39→23:59)
--- NOTE | 2021-06-16 17:52 | P.HPOB ---
History of Present Illness H&P Date: 06/16/21 Chief Complaint: induction of labor 25-year-old presents at 39 weeks and 1 day for induction of labor. Her cervix is 3 cm dilated, 80% effaced, -2 station. She is severiano irregularly. heart tones 1:30 with moderate variability and reactive. Review of Systems All systems: negative Constitutional: Denies chills, Denies fever Eyes: denies blurred vision, denies pain Ears, nose, mouth and throat: Denies headache, Denies sore throat Cardiovascular: Denies chest pain, Denies shortness of breath Respiratory: Denies cough Gastrointestinal: Denies abdominal pain, Denies diarrhea, Denies nausea, Denies vomiting Genitourinary: Denies dysuria, Denies hematuria Musculoskeletal: Denies myalgias Integumentary: Denies pruritus, Denies rash Neurological: Denies numbness, Denies weakness Psychiatric: Denies anxiety, Denies depression Endocrine: Denies fatigue, Denies weight change Past Medical History Past Medical History: No Reported History Additional Past Medical History / Comment(s): Obstetric history: First 2 pregnancies were spontaneous abortions. Third was a vaginal delivery. This is her fourth and she had care with me since the first trimester. Blood type is O+, antibodies negative, RPR nonreactive, hepatitis B- , GBS positive, rubella immune. She did see [facility] for her history of hepatitis C. History of Any Multi-Drug Resistant Organisms: None Reported Past Surgical History: No Surgical Hx Reported Additional Past Surgical History / Comment(s): retained Nexplanon removed from Left upper arm Past Anesthesia/Blood Transfusion Reactions: No Reported Reaction Past Psychological History: No Psychological Hx Reported Smoking Status: Former smoker Past Alcohol Use History: None Reported Past Drug Use History: None Reported - Past Family History Mother Family Medical History: No Reported History Medications and Allergies Home Medications Medication Instructions Recorded Confirmed Type Pnv No.95/Ferrous Fum/Folic AC 1 each PO DAILY 06/16/21 06/16/21 History [ Multivitamin Tablet] RX: Omeprazole 40 mg PO DAILY 06/16/21 06/16/21 History Allergies Allergy/AdvReac Type Severity Reaction Status Date / Time No Known Allergies Allergy Verified 06/16/21 06:25 Exam Osteopathic Statement: *. No significant issues noted on an osteopathic structural exam other than those noted in the History and Physical/Consult. Vital Signs Temp Pulse Resp BP Pulse Ox 06/16/21 16:00 98.1 F 98 16 121/74 06/16/21 14:30 97.8 F 112 H 16 121/67 06/16/21 14:00 113 H 16 136/73 06/16/21 13:30 103 H 16 127/64 06/16/21 13:15 103 H 16 121/79 06/16/21 13:00 96 16 122/79 06/16/21 12:45 105 H 16 128/60 06/16/21 12:30 98.3 F 87 16 121/71 06/16/21 06:27 97.5 F L 110 H 18 137/78 98 Intake and Output 06/16/21 06/16/21 06/16/21 06:59 14:59 22:59 Output Total 300 Balance -300 Output: Output, Quantitative 300 Blood Loss Other: # Voids 1 Weight 85.275 kg Heart: Regular rate and rhythm Lungs: Clear to auscultation bilaterally Abdomen: Soft, nontender Extremities: Negative Homans sign Results Result Diagrams: 06/16/21 06:40 Abnormal Lab Results - Last 24 Hours (Table) 06/16/21 Range/Units 06:40 WBC 10.9 H (3.8-10.6) k/uL RBC 3.61 L (3.80-5.40) m/uL Hgb 9.2 L (11.4-16.0) gm/dL Hct 30.1 L (34.0-46.0) % MCHC 30.7 L (31.0-37.0) g/dL Neutrophils # 8.2 H (1.3-7.7) k/uL Assessment and Plan (1) Hepatitis C Current Visit: No Status: Chronic Code(s): B19.20 - UNSPECIFIED VIRAL HEPATITIS C WITHOUT HEPATIC COMA SNOMED Code(s): 66927369 (2) Elective induction of labor planned Current Visit: No Status: Resolved Code(s): LUO6057 - SNOMED Code(s): 916014118 Plan: 1. Induction of labor with amniotomy and Pitocin 2. Anticipate normal vaginal delivery
--- NOTE | 2021-06-16 17:55 | P.PROBDLV ---
Vaginal Delivery Note - . Vaginal Delivery Note: 25-year-old presents at 39 weeks and 1 day for induction of labor. Her cervix is 3 cm dilated, 80% effaced, -2 station. She is severiano irregularly. heart tones 130 with moderate variability and reactive. Pitocin was started and amniotomy performed at 7:06 AM clear fluid noted. When she was uncomfortable she did get an epidural. Her cervix was completely dilated at 12:04 PM. She pushed, delivered a viable female over intact perineum under epidural anesthesia at 12:17 AM. The patient pushed to a crown and then the head delivered OA, the anterior shoulder which was the left shoulder attempted to be delivered but was not moving past the pubic bone. Shoulder dystocia was identified. The patient was placed into Kaitlyn position and the posterior shoulder was attempted to be delivered. The posterior shoulder did move to change the angle and then the anterior shoulder delivered with gentle downward guidance followed by posterior shoulder and rest of body. Nose and mouth bulb suctioned, cord clamped and cut, placed on mother's abdomen. Apgars 9, 9, weight 8 lbs. 8 oz. Placenta delivered spontaneously, intact with three-vessel cord at 12:19 PM. Vagina, cervix, perineum inspected. No lacerations noted. Estimated blood loss 200 mL. Mother and baby in stable condition.
[2021-06-16] MEDS: SENNOSIDES-DOCUSATE SODIUM 1 EACH TAB PO SCH (19:46)
[2021-06-17 08:13] LABS: Basophils % (A) 0 %; Eosinophils # (A) 0.1 k/uL (0-0.7); Eosinophils % (A) 1 %; HCT 27.7 % (34.0-46.0); HGB 8.6 gm/dL (11.4-16.0); Hypochromasia Marked; Lymphocytes # (A) 1.9 k/uL (1.0-4.8); Lymphocytes % (A) 16 %; MCH 26.2 pg (25.0-35.0); MCHC 31.2 g/dL (31.0-37.0); Mean Platelet Volume 7.7; Monocytes # (A) 0.6 k/uL (0-1.0); Monocytes % (A) 5 %; Neutrophils # (A) 8.7 k/uL (1.3-7.7); Neutrophils % (A) 75 %; Platelet Count 232 k/uL (150-450); RBC 3.29 m/uL (3.80-5.40); RDW 14.9 % (11.5-15.5); WBC 11.6 k/uL (3.8-10.6)
[2021-06-17] MEDS: IBUPROFEN 600 MG TAB PO PRN (08:52)
[2021-06-17] MEDS: SENNOSIDES-DOCUSATE SODIUM 1 EACH TAB PO SCH (08:53)
--- NOTE | 2021-06-17 09:32 | P.DS ---
Providers Date of admission: 06/16/21 06:13 Expected date of discharge: 06/17/21 Attending physician: Elle Romero Primary care physician: Stated None - Discharge Diagnosis(es) (1) Hepatitis C Current Visit: No Status: Chronic (2) Normal vaginal delivery Current Visit: No Status: Acute Hospital Course: Patient presented for induction of labor. She underwent a normal vaginal delivery. course was K. She denies nausea, vomiting, chest pain, shortness of breath or calf pain. Patient will be discharged home day #1 in stable condition to follow-up with me in 6 weeks. Plan - Discharge Summary New Discharge Prescriptions: New Ibuprofen [Motrin] 600 mg PO Q6HR PRN #40 tab PRN Reason: Mild Pain (Scale 1 To 3) No Action Pnv No.95/Ferrous Fum/Folic AC [ Multivitamin Tablet] 1 each PO DAILY Omeprazole 40 mg PO DAILY Discharge Medication List Omeprazole 40 mg PO DAILY 06/16/21 [History] Pnv No.95/Ferrous Fum/Folic AC [ Multivitamin Tablet] 1 each PO DAILY 06/16/21 [History] Ibuprofen [Motrin] 600 mg PO Q6HR PRN #40 tab 06/17/21 [Rx] Follow up Appointment(s)/Referral(s): Elle Romero DO [Doctor of Osteopathic Medicine] - 07/26/21 11:15 am Discharge Disposition: HOME SELF-CARE
[2021-06-17 09:33] VITALS: RESP 18
[2021-06-17 12:40] VITALS: BP 138/75; PULSE 95; TEMP 98.8
== END 2021-06-17 12:55 | disposition home or self-care (01) | DRG 806 ==
LOC: 4FBP 06:13
PROVIDERS: ADMIT Obstetrics & Gynecology; ATTEND Obstetrics & Gynecology
PROC: 10E0XZZ Delivery of Products of Conception, External Approach (ICD-10-PCS; principal; 2021-06-16)
PROC: 3E033VJ Introduction of Other Hormone into Peripheral Vein, Percutaneous Approach (ICD-10-PCS; 2021-06-16)
PROC: 10907ZC Drainage of Amniotic Fluid, Therapeutic from Products of Conception, Via Natural or Artificial Opening (ICD-10-PCS; 2021-06-16)
PROC: 00HU33Z Insertion of Infusion Device into Spinal Canal, Percutaneous Approach (ICD-10-PCS; 2021-06-16)
PROC: 3E0R3NZ Introduction of Analgesics, Hypnotics, Sedatives into Spinal Canal, Percutaneous Approach (ICD-10-PCS; 2021-06-16)
DX: O66.0 Obstructed labor due to shoulder dystocia (principal); O98.42 Viral hepatitis complicating childbirth; Z37.0 Single live birth; B19.20 Unspecified viral hepatitis C without hepatic coma; O99.62 Diseases of the digestive system complicating childbirth; K21.9 Gastro-esophageal reflux disease without esophagitis; Z3A.39 39 weeks gestation of pregnancy; Z79.899 Other long term (current) drug therapy; Z87.891 Personal history of nicotine dependence
CPT/HCPCS: 85025; 86850; 86900; 86901

== ENCOUNTER 2022-03-08 21:03 | Emergency (ER) | payer OTHER ==
[2022-03-08 21:16] VITALS: BP 126/77; PULSE 100; RESP 20; TEMP 98.8
--- NOTE | 2022-03-08 21:53 | XR ---
EXAMINATION TYPE: XR foot complete RT DATE OF EXAM: 03/08/2022 COMPARISON: NONE HISTORY: Pain TECHNIQUE: 3 views FINDINGS: Metatarsals are intact. I see no fracture nor dislocation. Joint spaces are normal. IMPRESSION: Negative right foot exam. No fracture.
[2022-03-08] MEDS ORDERED: IBUPROFEN 600 MG STARTER PACK 4 TAB BTL PO STA (21:56)
[2022-03-08] MEDS ORDERED: ACET/COD 300 MG/30 MG STARTER PACK 6 TAB BTL PO STA (21:56)
--- NOTE | 2022-03-08 21:58 | ED ---
Lower Extremity Injury HPI - General Chief Complaint: Extremity Injury, Lower Stated Complaint: R foot injury Time Seen by Provider: 03/08/22 21:51 Source: patient Mode of arrival: ambulatory Limitations: no limitations - History of Present Illness Initial Comments: This patient is 26-year-old woman who complains of pain to the right forefoot. She states that about 2 hours ago she had her foot closed in a car door. Patient states she is able to bear a little bit of weight but it makes the pain much worse. She denies previous surgery or injury to the foot. MD Complaint: foot injury Onset/Timin -: hour(s) Injury: Foot: Right Type of Injury: blunt Place: street/outdoors Severity: moderate Improves With: nothing Worsens With: weight bearing Context: direct blow Associated Symptoms: able to partially bear weight - Related Data Home Medications Medication Instructions Recorded Confirmed Omeprazole 40 mg PO DAILY 06/16/21 06/16/21 Pnv No.95/Ferrous Fum/Folic AC 1 each PO DAILY 06/16/21 06/16/21 [ Multivitamin Tablet] Previous Rx's Medication Instructions Recorded Ibuprofen [Motrin] 600 mg PO Q6HR PRN #40 tab 06/17/21 Allergies Allergy/AdvReac Type Severity Reaction Status Date / Time No Known Allergies Allergy Verified 06/16/21 06:25 Review of Systems ROS Statement: Those systems with pertinent positive or pertinent negative responses have been documented in the HPI. ROS Other: All systems not noted in ROS Statement are negative. Constitutional: Denies: weakness Musculoskeletal: Reports: as per HPI, arthralgia Skin: Denies: lesions Neurological: Denies: weakness, numbness, paresthesias Past Medical History Past Medical History: No Reported History Additional Past Medical History / Comment(s): Obstetric history: First 2 pregnancies were spontaneous abortions. Third was a vaginal delivery. This is her fourth and she had care with me since the first trimester. Blood type is O+, antibodies negative, RPR nonreactive, hepatitis B- , GBS positive, rubella immune. She did see [facility] for her history of hepatitis C. History of Any Multi-Drug Resistant Organisms: None Reported Past Surgical History: No Surgical Hx Reported Additional Past Surgical History / Comment(s): retained Nexplanon removed from Left upper arm Past Anesthesia/Blood Transfusion Reactions: No Reported Reaction Past Psychological History: No Psychological Hx Reported Smoking Status: Former smoker Past Alcohol Use History: None Reported Past Drug Use History: None Reported - Past Family History Mother Family Medical History: No Reported History General Exam Limitations: no limitations General appearance: alert, in no apparent distress Right Lower Leg exam: Present: normal inspection, full ROM. Absent: tenderness, swelling Ankle exam: Present: normal inspection, full ROM. Absent: tenderness, swelling Foot/Toe exam: Present: normal inspection, tenderness. Absent: abrasion, laceration, ecchymosis, deformity, crepitus, dislocation, erythema, calcaneal tenderness, tenderness at base of 5th metatarsal, nail avulsion, subungual hematoma Neurovascular tendon exam: Present: no vascular compromise. Absent: pulse deficit, abnormal cap refill, motor deficit, sensory deficit, tendon deficit, abnormal 2-point discrimination, decreased fine/light touch Neurological exam: Absent: motor sensory deficit (Throughout right foot) Skin exam: Present: warm, dry, intact, normal color. Absent: rash Course Vital Signs 03/08/22 21:14 Temperature 98.8 F Pulse Rate 100 Respiratory 20 Rate Blood Pressure 126/77 O2 Sat by Pulse 100 Oximetry Disposition Clinical Impression: Contusion of foot Disposition: HOME SELF-CARE Condition: Good Instructions (If sedation given, give patient instructions): Foot Contusion (ED) Is patient prescribed a controlled substance at d/c from ED?: No Referrals: None,Stated [Primary Care Provider] - 1-2 days
== END 2022-03-08 22:10 | disposition home or self-care (01) ==
LOC: EC 21:03
DX: S90.31XA Contusion of right foot, initial encounter (principal); Z87.891 Personal history of nicotine dependence; W23.0XXA Caught, crushed, jammed, or pinched between moving objects, initial encounter; Y92.838 Other recreation area as the place of occurrence of the external cause
CPT/HCPCS: 99283

== ENCOUNTER 2022-08-25 11:49 | Emergency (ER) | payer OTHER ==
[2022-08-25 12:11] VITALS: RESP 20
[2022-08-25] MEDS ORDERED: SODIUM CHLORIDE 0.9% 1,000 ML IV STA ×2 (12:21)
[2022-08-25] MEDS ORDERED: ONDANSETRON 4 MG/2 ML VIAL IVP STA (12:21)
[2022-08-25] MEDS ORDERED: diphenhydrAMINE 50 MG/ML 1 ML VIAL IVP STA (12:23)
[2022-08-25 12:53] LABS: Basophils % (A) 0 %; Eosinophils # (A) 0.1 k/uL (0-0.7); Eosinophils % (A) 1 %; HGB 12.8 gm/dL (11.4-16.0); Lymphocytes # (A) 1.6 k/uL (1.0-4.8); Lymphocytes % (A) 23 %; MCH 27.8 pg (25.0-35.0); MCHC 32.8 g/dL (31.0-37.0); MCV 84.8 fL (80.0-100.0); Mean Platelet Volume 6.8; Monocytes # (A) 0.5 k/uL (0-1.0); Monocytes % (A) 7 %; Neutrophils # (A) 4.9 k/uL (1.3-7.7); Neutrophils % (A) 67 %; Platelet Count 254 k/uL (150-450); RBC 4.59 m/uL (3.80-5.40); RDW 14.2 % (11.5-15.5); WBC 7.3 k/uL (3.8-10.6)
--- NOTE | 2022-08-25 12:56 | ED ---
Nausea/Vomiting/Diarrhea HPI - General Chief complaint: Nausea/Vomiting/Diarrhea Stated complaint: vomiting - 6 wks Time Seen by Provider: 08/25/22 12:29 Source: patient, RN notes reviewed, old records reviewed Mode of arrival: ambulatory Limitations: no limitations - History of Present Illness Initial comments: This is a 26-year-old female to the emergency department for evaluation she presents today for evaluation of nausea vomiting. Is positive here in the emergency department with nausea and vomiting. She is a G 4 P 2 with one miscarriage. Patient has no abdominal pain no vaginal bleeding MD complaint: nausea, vomiting -: days(s) Description of Vomiting: food contents, watery Associated Abdominal Pain: No Radiation: none Severity: mild Severity scale (1-10): 2 Consistency: intermittent Improves with: none Worsens with: none Associated Symptoms: loss of appetite, nausea/vomiting, weakness - Related Data Home Medications Medication Instructions Recorded Confirmed Amoxicillin 1,000 mg PO DAILY 04/15/22 04/15/22 Omeprazole 20 mg PO DAILY PRN 04/15/22 04/15/22 Allergies Allergy/AdvReac Type Severity Reaction Status Date / Time No Known Allergies Allergy Verified 09/03/22 22:08 Review of Systems ROS Statement: Those systems with pertinent positive or pertinent negative responses have been documented in the HPI. ROS Other: All systems not noted in ROS Statement are negative. Past Medical History Past Medical History: No Reported History Additional Past Medical History / Comment(s): Obstetric history: First 2 pregnancies were spontaneous abortions. Third was a vaginal delivery. This is her fourth and she had care with nm since the first trimester. Blood type is O+, antibodies negative, RPR nonreactive, hepatitis B- , GBS positive, rubella immune. She did see [facility] for her history of hepatitis C. History of Any Multi-Drug Resistant Organisms: None Reported Past Surgical History: No Surgical Hx Reported Additional Past Surgical History / Comment(s): retained Nexplanon removed from Left upper arm Past Anesthesia/Blood Transfusion Reactions: No Reported Reaction Past Psychological History: No Psychological Hx Reported Smoking Status: Never smoker Past Alcohol Use History: None Reported Past Drug Use History: None Reported - Past Family History Mother Family Medical History: No Reported History General Exam Limitations: no limitations General appearance: alert, in no apparent distress Head exam: Present: atraumatic, normocephalic, normal inspection Eye exam: Present: normal appearance, PERRL, EOMI. Absent: scleral icterus, conjunctival injection, periorbital swelling ENT exam: Present: normal exam, mucous membranes moist Neck exam: Present: normal inspection. Absent: tenderness, meningismus, lymphadenopathy Respiratory exam: Present: normal lung sounds bilaterally. Absent: respiratory distress, wheezes, rales, rhonchi, stridor Cardiovascular Exam: Present: regular rate, normal rhythm, normal heart sounds. Absent: systolic murmur, diastolic murmur, rubs, gallop, clicks GI/Abdominal exam: Present: soft, normal bowel sounds. Absent: distended, tenderness, guarding, rebound, rigid Extremities exam: Present: normal inspection, full ROM, normal capillary refill. Absent: tenderness, pedal edema, joint swelling, calf tenderness Back exam: Present: normal inspection Neurological exam: Present: alert, oriented X3, CN II-XII intact Psychiatric exam: Present: normal affect, normal mood Skin exam: Present: warm, dry, intact, normal color. Absent: rash Course Vital Signs 08/25/22 08/25/22 12:08 14:30 Temperature 97.8 F 98.0 F Pulse Rate 100 84 Respiratory 20 20 Rate Blood Pressure 103/69 110/58 O2 Sat by Pulse 98 98 Oximetry - Reevaluation(s) Reevaluation #1: 08/25/22 16:05 Medical record is reviewed Reevaluation #2: 08/25/22 16:05 Patient symptoms continue to improve Reevaluation #3: 08/25/22 16:05 Patient informed results questions answered Reevaluation #4: 08/25/22 16:05 Was pt. sent in by a medical professional or institution? @ -no Did you speak to anyone other than the patient for history? @ -no Did you review nursing and triage notes? @ -agree Were old charts reviewed? @ -no Differential Diagnosis? @ -prior EKG interpreted by me (3pts min.)? @ -ye X-rays interpreted by me (1pt min.)? @ -no CT interpreted by me (1pt min.)? @ -no U/S interpreted by me (1pt. min.)? @ -yes What testing was considered but not performed? (CT, X-rays, U/S, labs)? Why? @ -no What meds were considered but not given? Why? @ -no Did you discuss the management of the patient with other professionals? @ -no Did you reconcile home meds? @ -no Was smoking cessation discussed for >3mins.? @ -no Was critical care preformed (if so, how long)? @ -no Were there social determinants of health that impacted care today? How? (Homelessness, low income, unemployed, alcoholism, drug addiction, transportation, low edu. Level, literacy, decrease access to med. care, group home, rehab)? @ -no Was there de-escalation of care discussed even if they declined? (Discuss DNR or withdrawal of care, Hospice)? @ -no What co-morbidities impacted this encounter? (DM, HTN, Smoking, COPD, CAD, Cancer, CVA, Hep., AIDS, mental health diagnosis, sleep apnea, morbid obesity)? @ -none Was patient admitted / discharged? @ -26 female of nausea vomiting with history of positive , feeling much improved here in the ER continue to improve here in the emergency department able tolerate oral intake and can be discharged home Discharge Undiagnosed new problem with uncertain prognosis? @ -no Drug Therapy requiring intensive monitoring for toxicity (Heparin, Nitro, Insulin, Cardizem)? @ -no Were any procedures done? @ -no Diagnosis/symptom? @ -Nausea vomiting and Acute, or Chronic, or Acute on Chronic? @ -no Uncomplicated (without systemic symptoms) or Complicated (systemic symptoms)? @ -uncomplicated Side effects of treatment? @ -no Exacerbation, Progression, or Severe Exacerbation] @ -no Poses a threat to life or bodily function? @ -no Medical Decision Making - Medical Decision Making 26 female of nausea vomiting with history of positive , feeling much improved here in the ER continue to improve here in the emergency department able tolerate oral intake and can be discharged home - Lab Data Result diagrams: 08/25/22 12:39 08/25/22 12:39 Lab Results 08/25/22 08/25/22 08/25/22 Range/Units 12:39 12:39 12:39 WBC 7.3 (3.8-10.6) k/uL RBC 4.59 (3.80-5.40) m/uL Hgb 12.8 (11.4-16.0) gm/dL Hct 39.0 (34.0-46.0) % MCV 84.8 (80.0-100.0) fL MCH 27.8 (25.0-35.0) pg MCHC 32.8 (31.0-37.0) g/dL RDW 14.2 (11.5-15.5) % Plt Count 254 (150-450) k/uL MPV 6.8 Neutrophils % 67 % Lymphocytes % 23 % Monocytes % 7 % Eosinophils % 1 % Basophils % 0 % Neutrophils # 4.9 (1.3-7.7) k/uL Lymphocytes # 1.6 (1.0-4.8) k/uL Monocytes # 0.5 (0-1.0) k/uL Eosinophils # 0.1 (0-0.7) k/uL Basophils # 0.0 (0-0.2) k/uL PT 10.6 (9.0-12.0) sec INR 1.0 (<1.2) APTT 21.1 L (22.0-30.0) sec Sodium 138 (137-145) mmol/L Potassium 4.1 (3.5-5.1) mmol/L Chloride 100 (98-107) mmol/L Carbon Dioxide 23 (22-30) mmol/L Anion Gap 15 mmol/L BUN 16 (7-17) mg/dL Creatinine 0.60 (0.52-1.04) mg/dL Est GFR (CKD-EPI)AfAm >90 (>60 ml/min/1.73 sqM) Est GFR (CKD-EPI)NonAf >90 (>60 ml/min/1.73 sqM) Glucose 83 (74-99) mg/dL Plasma Lactic Acid Nixon (0.7-2.0) mmol/L Calcium 9.6 (8.4-10.2) mg/dL Phosphorus 3.5 (2.5-4.5) mg/dL Magnesium 2.0 (1.6-2.3) mg/dL Total Bilirubin 0.7 (0.2-1.3) mg/dL AST 82 H (14-36) U/L ALT 158 H (4-34) U/L Alkaline Phosphatase 86 (38-126) U/L Troponin I (0.000-0.034) ng/mL NT-Pro-B Natriuret Pep pg/mL Total Protein 8.2 (6.3-8.2) g/dL Albumin 4.8 (3.5-5.0) g/dL Lipase 144 (23-300) U/L HCG, Quant 13583.4 mIU/mL Urine Color Urine Appearance (Clear) Urine pH (5.0-8.0) Ur Specific [facility] (1.001-1.035) Urine Protein (Negative) Urine Glucose (UA) (Negative) Urine Ketones (Negative) Urine Blood (Negative) Urine Nitrite (Negative) Urine Bilirubin (Negative) Urine Urobilinogen (<2.0) mg/dL Ur Leukocyte Esterase (Negative) Urine RBC (0-5) /hpf Urine WBC (0-5) /hpf Ur Squamous Epith Cells (0-4) /hpf Urine Bacteria (None) /hpf Urine Mucus (None) /hpf 08/25/22 08/25/22 08/25/22 Range/Units 12:39 12:39 12:39 WBC (3.8-10.6) k/uL RBC (3.80-5.40) m/uL Hgb (11.4-16.0) gm/dL Hct (34.0-46.0) % MCV (80.0-100.0) fL MCH (25.0-35.0) pg MCHC (31.0-37.0) g/dL RDW (11.5-15.5) % Plt Count (150-450) k/uL MPV Neutrophils % % Lymphocytes % % Monocytes % % Eosinophils % % Basophils % % Neutrophils # (1.3-7.7) k/uL Lymphocytes # (1.0-4.8) k/uL Monocytes # (0-1.0) k/uL Eosinophils # (0-0.7) k/uL Basophils # (0-0.2) k/uL PT (9.0-12.0) sec INR (<1.2) APTT (22.0-30.0) sec Sodium (137-145) mmol/L Potassium (3.5-5.1) mmol/L Chloride (98-107) mmol/L Carbon Dioxide (22-30) mmol/L Anion Gap mmol/L BUN (7-17) mg/dL Creatinine (0.52-1.04) mg/dL Est GFR (CKD-EPI)AfAm (>60 ml/min/1.73 sqM) Est GFR (CKD-EPI)NonAf (>60 ml/min/1.73 sqM) Glucose (74-99) mg/dL Plasma Lactic Acid Nixon 1.0 (0.7-2.0) mmol/L Calcium (8.4-10.2) mg/dL Phosphorus (2.5-4.5) mg/dL Magnesium (1.6-2.3) mg/dL Total Bilirubin (0.2-1.3) mg/dL AST (14-36) U/L ALT (4-34) U/L Alkaline Phosphatase (38-126) U/L Troponin I <0.012 (0.000-0.034) ng/mL NT-Pro-B Natriuret Pep <11 pg/mL Total Protein (6.3-8.2) g/dL Albumin (3.5-5.0) g/dL Lipase (23-300) U/L HCG, Quant mIU/mL Urine Color Urine Appearance (Clear) Urine pH (5.0-8.0) Ur Specific [facility] (1.001-1.035) Urine Protein (Negative) Urine Glucose (UA) (Negative) Urine Ketones (Negative) Urine Blood (Negative) Urine Nitrite (Negative) Urine Bilirubin (Negative) Urine Urobilinogen (<2.0) mg/dL Ur Leukocyte Esterase (Negative) Urine RBC (0-5) /hpf Urine WBC (0-5) /hpf Ur Squamous Epith Cells (0-4) /hpf Urine Bacteria (None) /hpf Urine Mucus (None) /hpf 08/25/22 Range/Units 15:00 WBC (3.8-10.6) k/uL RBC (3.80-5.40) m/uL Hgb (11.4-16.0) gm/dL Hct (34.0-46.0) % MCV (80.0-100.0) fL MCH (25.0-35.0) pg MCHC (31.0-37.0) g/dL RDW (11.5-15.5) % Plt Count (150-450) k/uL MPV Neutrophils % % Lymphocytes % % Monocytes % % Eosinophils % % Basophils % % Neutrophils # (1.3-7.7) k/uL Lymphocytes # (1.0-4.8) k/uL Monocytes # (0-1.0) k/uL Eosinophils # (0-0.7) k/uL Basophils # (0-0.2) k/uL PT (9.0-12.0) sec INR (<1.2) APTT (22.0-30.0) sec Sodium (137-145) mmol/L Potassium (3.5-5.1) mmol/L Chloride (98-107) mmol/L Carbon Dioxide (22-30) mmol/L Anion Gap mmol/L BUN (7-17) mg/dL Creatinine (0.52-1.04) mg/dL Est GFR (CKD-EPI)AfAm (>60 ml/min/1.73 sqM) Est GFR (CKD-EPI)NonAf (>60 ml/min/1.73 sqM) Glucose (74-99) mg/dL Plasma Lactic Acid Nixon (0.7-2.0) mmol/L Calcium (8.4-10.2) mg/dL Phosphorus (2.5-4.5) mg/dL Magnesium (1.6-2.3) mg/dL Total Bilirubin (0.2-1.3) mg/dL AST (14-36) U/L ALT (4-34) U/L Alkaline Phosphatase (38-126) U/L Troponin I (0.000-0.034) ng/mL NT-Pro-B Natriuret Pep pg/mL Total Protein (6.3-8.2) g/dL Albumin (3.5-5.0) g/dL Lipase (23-300) U/L HCG, Quant mIU/mL Urine Color Yellow Urine Appearance Turbid H (Clear) Urine pH 6.0 (5.0-8.0) Ur Specific [facility] 1.030 (1.001-1.035) Urine Protein 1+ H (Negative) Urine Glucose (UA) Negative (Negative) Urine Ketones 4+ H (Negative) Urine Blood Negative (Negative) Urine Nitrite Negative (Negative) Urine Bilirubin Negative (Negative) Urine Urobilinogen 3.0 (<2.0) mg/dL Ur Leukocyte Esterase Large H (Negative) Urine RBC 1 (0-5) /hpf Urine WBC 9 H (0-5) /hpf Ur Squamous Epith Cells 61 H (0-4) /hpf Urine Bacteria Occasional H (None) /hpf Urine Mucus Many H (None) /hpf - EKG Data -: EKG Interpreted by Me (EKG shows sinus 82 AK 115 QRS 89 QTc 409) - Radiology Data Radiology results: report reviewed (Ultrasound shows positive early ), image reviewed Disposition Clinical Impression: Nausea and vomiting during , Nausea & vomiting Disposition: ADMITTED IP TO THIS [facility] Condition: Fair Instructions (If sedation given, give patient instructions): Nausea and Vomiting in (ED), Acute Nausea and Vomiting (ED) Is patient prescribed a controlled substance at d/c from ED?: No Referrals: Mykel Romano MD [Primary Care Provider] - 1-2 days Time of Disposition: 14:30
[2022-08-25] MEDS ORDERED: PYRIDOXINE 100 MG/ML 1 ML VIAL IVP SCH (13:00)
[2022-08-25 13:04] LABS: ALT 158 U/L (4-34); AST 82 U/L (14-36); African American GFR (CKD) >90 (>60 ml/min/1.73 sqM); Albumin 4.8 g/dL (3.5-5.0); Alkaline Phosphatase 86 U/L (38-126); Anion Gap 15 mmol/L; Blood Urea Nitrogen 16 mg/dL (7-17); Calcium 9.6 mg/dL (8.4-10.2); Carbon Dioxide 23 mmol/L (22-30); Chloride 100 mmol/L (98-107); Glucose 83 mg/dL (74-99); Non-African American GFR(CKD) >90 (>60 ml/min/1.73 sqM); Phosphorus 3.5 mg/dL (2.5-4.5); Potassium 4.1 mmol/L (3.5-5.1); Sodium 138 mmol/L (137-145); Total Bilirubin 0.7 mg/dL (0.2-1.3); Total Protein 8.2 g/dL (6.3-8.2)
[2022-08-25 13:14] LABS: Prothrombin Time 10.6 sec (9.0-12.0)
[2022-08-25 13:21] LABS: Partial Thromboplastin Time 21.1 sec (22.0-30.0)
--- NOTE | 2022-08-25 13:25 | US ---
EXAMINATION TYPE: Transabdominal DATE OF EXAM: 08/25/2022 1:09 PM COMPARISON: 07/22/2019 CLINICAL INDICATION: Female, 26 years old with history of preg; Nausea and vomiting, no bleeding, no pelvic pain, EXAM PERFORMED: OBTA EXAM MEASUREMENTS: GESTATIONAL AGE / DATING Physician Established: Not yet established Dates by LMP: (5 weeks/5 days) EDC: 04/22/2023 Dates by First Scan: No previous this is first scan Dates by Current Scan for: (6 weeks/5 days) EDC: 04/15/2023 MATERNAL ANATOMY Uterus: 9.1 x 6.6 x 5.5cm Right Ovary: 2.5 x 2.0 x 1.3cm Left Ovary: 2.5 x 2.0 x 1.3cm Post CDS / Adnexa: wnl Presence of free fluid: no Presence of corpus luteal cyst: yes, left ovary = 1.6 x 1.4 x 1.3cm Presence of subchorionic bleed: no GESTATION / SURVEY CRL: not seen today MSD: 1.7cm (6 weeks/5 days) Yolk Sac (normal less than 6mm): 0.2cm IUP: gestational sac seen Date of LMP: 07/16/2022 Beta HcG (if available): not available IMPRESSION: Small anechoic intrauterine cystic structure without evidence for pole at this time. This is th ought to represent an early gestational sac with a positive beta hCG, however ectopic and a bnormal intrauterine cannot be ruled out based on this exam alone. Follow-up with pelvic ul trasound in 7-10 days and serial beta-hCG studies are recommended to en sure further development of t he fetus.
[2022-08-25 13:46] LABS: HCG,Quantitative Serum 38446.4 mIU/mL
[2022-08-25] MEDS ORDERED: ONDANSETRON 4 MG ODT STARTER PACK 2 TAB BTL PO STA (14:28)
[2022-08-25 15:14] LABS: Appearance,Urine Turbid (Clear); Bacteria,Urine Occasional /hpf; Bilirubin,Urine Negative (Negative); Blood,Urine Negative (Negative); Color,Urine Yellow; Glucose,Urine (UA) Negative (Negative); Ketones,Urine 4+ (Negative); Leukocyte Esterase,Urine Large (Negative); Mucus,Urine Many /hpf; Nitrite,Urine Negative (Negative); Protein,Urine 1+ (Negative); RBC,Urine 1 /hpf (0-5); Squamous Epithelial Cell,Urine 61 /hpf (0-4); WBC,Urine 9 /hpf (0-5)
[2022-08-25 15:15] LABS: Lipase 144 U/L (23-300)
[2022-08-26 00:52] VITALS: BP 110/58; PULSE 84; TEMP 98
== END 2022-08-25 14:30 | disposition other institution (70) ==
LOC: EC 11:49
DX: O21.9 Vomiting of pregnancy, unspecified (principal); Z3A.01 Less than 8 weeks gestation of pregnancy
CPT/HCPCS: 36415; 93005; 83880; 80053; 83605; 83690; 83735; 84100; 84484; 85025; 85610; 85730; 81001; 84702; 76801; 99285; 96374; 96375 ×2; 96361 ×2; J1200; J3415; J2405; S0119

== ENCOUNTER 2022-09-03 21:58 | Emergency (ER) | payer OTHER ==
[2022-09-03 22:08] VITALS: TEMP 98.2
[2022-09-03] MEDS ORDERED: PYRIDOXINE 100 MG/ML 1 ML VIAL IVP STA (22:25)
[2022-09-03] MEDS ORDERED: diphenhydrAMINE 50 MG/ML 1 ML VIAL IVP STA (22:25)
[2022-09-03] MEDS ORDERED: SODIUM CHLORIDE 0.9% 2,000 ML IV ONE (22:28)
[2022-09-03 22:42] LABS: Basophils % (A) 0 %; Eosinophils # (A) 0.1 k/uL (0-0.7); Eosinophils % (A) 2 %; HCT 34.6 % (34.0-46.0); HGB 11.6 gm/dL (11.4-16.0); Lymphocytes # (A) 2.1 k/uL (1.0-4.8); Lymphocytes % (A) 24 %; MCH 28.5 pg (25.0-35.0); MCHC 33.5 g/dL (31.0-37.0); MCV 85.1 fL (80.0-100.0); Monocytes # (A) 0.5 k/uL (0-1.0); Monocytes % (A) 5 %; Neutrophils % (A) 68 %; Platelet Count 229 k/uL (150-450); RBC 4.07 m/uL (3.80-5.40); RDW 14.3 % (11.5-15.5); WBC 8.9 k/uL (3.8-10.6)
[2022-09-03 22:54] LABS: ALT 87 U/L (4-34); AST 46 U/L (14-36); African American GFR (CKD) >90 (>60 ml/min/1.73 sqM); Albumin 3.9 g/dL (3.5-5.0); Alkaline Phosphatase 62 U/L (38-126); Amylase 62 U/L (30-110); Anion Gap 8 mmol/L; Blood Urea Nitrogen 16 mg/dL (7-17); Carbon Dioxide 24 mmol/L (22-30); Chloride 102 mmol/L (98-107); Glucose 100 mg/dL (74-99); Lipase 260 U/L (23-300); Non-African American GFR(CKD) >90 (>60 ml/min/1.73 sqM); Sodium 134 mmol/L (137-145); Total Bilirubin 0.2 mg/dL (0.2-1.3); Total Protein 6.9 g/dL (6.3-8.2)
[2022-09-03 23:15] VITALS: BP 119/79; PULSE 91; RESP 14
--- NOTE | 2022-09-03 23:26 | ED ---
General Adult HPI - General Chief complaint: Nausea/Vomiting/Diarrhea Stated complaint: 7wks, vomitting Time Seen by Provider: 09/03/22 22:12 Source: patient, RN notes reviewed Mode of arrival: ambulatory Limitations: no limitations - History of Present Illness Initial comments: 26-year-old female presents emergency department with chief complaint of nausea and vomiting x2 days. Patient states that she is about 7 weeks . Last menstrual period [id number]. She states that she was here last week for same thing and has been feeling well until 2 days ago. She states that she has been taking Zofran with no relief. Denies abdominal pain, urinary frequency, dysuria, fever, chills. Denies vaginal bleeding, discharge, odor. - Related Data Home Medications Medication Instructions Recorded Confirmed Amoxicillin 1,000 mg PO DAILY 04/15/22 04/15/22 Omeprazole 20 mg PO DAILY PRN 04/15/22 04/15/22 Allergies Allergy/AdvReac Type Severity Reaction Status Date / Time No Known Allergies Allergy Verified 09/03/22 22:08 Review of Systems ROS Statement: Those systems with pertinent positive or pertinent negative responses have been documented in the HPI. ROS Other: All systems not noted in ROS Statement are negative. Past Medical History Past Medical History: No Reported History Additional Past Medical History / Comment(s): Obstetric history: First 2 pregnancies were spontaneous abortions. Third was a vaginal delivery. This is her fourth and she had care with me since the first trimester. Blood type is O+, antibodies negative, RPR nonreactive, hepatitis B- , GBS positive, rubella immune. She did see [facility] for her history of hepatitis C. History of Any Multi-Drug Resistant Organisms: None Reported Past Surgical History: No Surgical Hx Reported Additional Past Surgical History / Comment(s): retained Nexplanon removed from Left upper arm Past Anesthesia/Blood Transfusion Reactions: No Reported Reaction Past Psychological History: No Psychological Hx Reported Smoking Status: Never smoker Past Alcohol Use History: None Reported Past Drug Use History: None Reported - Past Family History Mother Family Medical History: No Reported History General Exam Limitations: no limitations General appearance: alert, in no apparent distress Head exam: Present: atraumatic, normocephalic, normal inspection Eye exam: Present: normal appearance, PERRL, EOMI. Absent: scleral icterus, conjunctival injection, periorbital swelling ENT exam: Present: normal exam, mucous membranes dry Neck exam: Present: normal inspection. Absent: tenderness, meningismus, lymphadenopathy Respiratory exam: Present: normal lung sounds bilaterally. Absent: respiratory distress, wheezes, rales, rhonchi, stridor Cardiovascular Exam: Present: regular rate, normal rhythm, normal heart sounds. Absent: systolic murmur, diastolic murmur, rubs, gallop, clicks GI/Abdominal exam: Present: soft, normal bowel sounds. Absent: distended, tenderness, guarding, rebound, rigid Extremities exam: Present: normal inspection, full ROM, normal capillary refill. Absent: tenderness, pedal edema, joint swelling, calf tenderness Back exam: Present: normal inspection Neurological exam: Present: alert, oriented X3 Psychiatric exam: Present: normal affect, normal mood Skin exam: Present: warm, dry, intact, normal color. Absent: rash Course Vital Signs 09/03/22 09/03/22 22:06 23:14 Temperature 98.2 F Pulse Rate 86 91 Respiratory 18 14 Rate Blood Pressure 106/74 119/79 O2 Sat by Pulse 98 Oximetry Medical Decision Making - Medical Decision Making Was pt. sent in by a medical professional or institution (, PA, TECHNICAL INSPECTOR, urgent care, hospital, or alf...) When possible be specific @ -[No] Did you speak to anyone other than the patient for history (EMS, parent, family, police, friend...)? What history was obtained from this source @ -[No] Did you review nursing and triage notes (agree or disagree)? Why? @ -[I reviewed and agree with nursing and triage notes] Were old charts reviewed (outside hosp., previous admission, EMS record, old EKG, old radiological studies, urgent care reports/EKG's, alf records)? Report findings @ -[Records from prior hospital visit reviewed including labs ] Differential Diagnosis (chest pain, altered mental status, abdominal pain women, abdominal pain men, vaginal bleeding, weakness, fever, dyspnea, syncope, headache, dizziness, GI bleed, back pain, seizure, CVA, palpatations, mental health, musculoskeletal)? @ -[not applicable] EKG interpreted by me (3pts min.). @ -[none] X-rays interpreted by me (1pt min.). @ -[None done] CT interpreted by me (1pt min.). @ -[None done] U/S interpreted by me (1pt. min.). @ -[None done] What testing was considered but not performed or refused? (CT, X-rays, U/S, labs)? Why? @ -[None] What meds were considered but not given or refused? Why? @ -[None] Did you discuss the management of the patient with other professionals (professionals i.e. DrHill, PA, TECHNICAL INSPECTOR, lab, RT, psych nurse, social professionals, lab pack chemist, teacher, disability insurance hearing officer, family service caseworker)? Give summary @ -[No] Was smoking cessation discussed for >3mins.? @ -[No] Was critical care preformed (if so, how long)? @ -[No] Were there social determinants of health that impacted care today? How? (Homelessness, low income, unemployed, alcoholism, drug addiction, transportation, low edu. Level, literacy, decrease access to med. care, fdc, rehab)? @ -[No] Was there de-escalation of care discussed even if they declined (Discuss DNR or withdrawal of care, Hospice)? DNR status @ -[No] What co-morbidities impacted this encounter? (DM, HTN, Smoking, COPD, CAD, Cancer, CVA, ARF, Chemo, Hep., AIDS, mental health diagnosis, sleep apnea, morbid obesity)? @ -[None] Was patient admitted / discharged? Hospital course, mention meds given and route, prescriptions, significant lab abnormalities, going to OR and other pertinent info. @ -[Patient presented to the emergency department for chief complaint of vomiting x2 days. She is around 7 weeks . Abdomen is soft, nontender. Denies vaginal bleeding, urinary symptoms, fever. States she took zofran this orning. Patient given benadryl and B6 along with fluids. Patient reported improvement in her symptoms. CBC within normal limits; CMP showed Na 134, potassium 4.0; HCG [id number]. Patient stable for discharge. Advised patient that she needs to follow up with her OB. Case discussed with my attending, Dr. Perez] Undiagnosed new problem with uncertain prognosis? @ -[No] Drug Therapy requiring intensive monitoring for toxicity (Heparin, Nitro, Insulin, Cardizem)? @ -[No] Were any procedures done? @ -[No] Diagnosis/symptom? @ -[Vomiting in ] Acute, or Chronic, or Acute on Chronic? @ -Acute Uncomplicated (without systemic symptoms) or Complicated (systemic symptoms)? @ -uncomplicated Side effects of treatment? @ -[No] Exacerbation, Progression, or Severe Exacerbation? @ -[No] Poses a threat to life or bodily function? How? (Chest pain, [place], [place], pneumonia, PE, COPD, DKA, ARF, appy, cholecystitis, CVA, Diverticulitis, Homicidal, Suicidal, threat to staff... and all critical care pts) @ -[No] - Lab Data Result diagrams: 09/03/22 22:32 09/03/22 22:32 Lab Results 09/03/22 09/03/22 Range/Units 22:32 22:32 WBC 8.9 (3.8-10.6) k/uL RBC 4.07 (3.80-5.40) m/uL Hgb 11.6 (11.4-16.0) gm/dL Hct 34.6 (34.0-46.0) % MCV 85.1 (80.0-100.0) fL MCH 28.5 (25.0-35.0) pg MCHC 33.5 (31.0-37.0) g/dL RDW 14.3 (11.5-15.5) % Plt Count 229 (150-450) k/uL MPV 7.0 Neutrophils % 68 % Lymphocytes % 24 % Monocytes % 5 % Eosinophils % 2 % Basophils % 0 % Neutrophils # 6.0 (1.3-7.7) k/uL Lymphocytes # 2.1 (1.0-4.8) k/uL Monocytes # 0.5 (0-1.0) k/uL Eosinophils # 0.1 (0-0.7) k/uL Basophils # 0.0 (0-0.2) k/uL Sodium 134 L (137-145) mmol/L Potassium 4.0 (3.5-5.1) mmol/L Chloride 102 (98-107) mmol/L Carbon Dioxide 24 (22-30) mmol/L Anion Gap 8 mmol/L BUN 16 (7-17) mg/dL Creatinine 0.60 (0.52-1.04) mg/dL Est GFR (CKD-EPI)AfAm >90 (>60 ml/min/1.73 sqM) Est GFR (CKD-EPI)NonAf >90 (>60 ml/min/1.73 sqM) Glucose 100 H (74-99) mg/dL Calcium 9.0 (8.4-10.2) mg/dL Total Bilirubin 0.2 (0.2-1.3) mg/dL AST 46 H (14-36) U/L ALT 87 H (4-34) U/L Alkaline Phosphatase 62 (38-126) U/L Total Protein 6.9 (6.3-8.2) g/dL Albumin 3.9 (3.5-5.0) g/dL Amylase 62 (30-110) U/L Lipase 260 (23-300) U/L HCG, Quant 128323.0 mIU/mL Disposition Clinical Impression: Vomiting affecting Disposition: HOME SELF-CARE Condition: Stable Instructions (If sedation given, give patient instructions): Acute Nausea and Vomiting (ED) Additional Instructions: Please follow up with your OB. Return to the emergency department for new or worsening symptoms. Is patient prescribed a controlled substance at d/c from ED?: No Referrals: Aixa Perry NPC [Primary Care Provider] - 1-2 days Time of Disposition: 00:47
[2022-09-04 01:32] LABS: Amorphous Sediment,Urine Rare /hpf; Appearance,Urine Cloudy (Clear); Bacteria,Urine Rare /hpf; Bilirubin,Urine Negative (Negative); Blood,Urine Negative (Negative); Color,Urine Light Yellow; Glucose,Urine (UA) Negative (Negative); Hyaline Casts,Urine 1 /lpf (0-2); Ketones,Urine Negative (Negative); Leukocyte Esterase,Urine Large (Negative); Mucus,Urine Rare /hpf; Nitrite,Urine Negative (Negative); PH, Urine 6.5 (5.0-8.0); Protein,Urine Negative (Negative); RBC,Urine 1 /hpf (0-5); Specific Gravity,Urine 1.015 (1.001-1.035); Squamous Epithelial Cell,Urine 22 /hpf (0-4); Urobilinogen,Urine <2.0 mg/dL (<2.0); WBC,Urine 5 /hpf (0-5)
== END 2022-09-04 01:02 | disposition home or self-care (01) ==
LOC: EC 21:58
DX: O21.9 Vomiting of pregnancy, unspecified (principal); Z3A.01 Less than 8 weeks gestation of pregnancy
CPT/HCPCS: 36415; 80053; 82150; 83690; 85025; 81001; 84702; 99284; 96374; 96375; 96361; J1200; J3415

== ENCOUNTER 2022-10-07 21:55 | Observation (INO) | payer OTHER ==
[2022-10-07] MEDS ORDERED: SODIUM CHLORIDE 0.9% 1,000 ML IV ONE (23:01)
--- NOTE | 2022-10-07 23:13 | ED ---
General Adult HPI - General Chief complaint: Vaginal Bleeding Stated complaint: Cramping, menstrual pain Time Seen by Provider: 10/07/22 22:55 Source: patient Mode of arrival: ambulatory Limitations: no limitations - History of Present Illness Initial comments: 26-year-old female presenting with chief complaint of vaginal bleeding. Patient had a medical performed 4 weeks ago at [facility]. She states that for several days after taking the medication she didn't have cramping and bleeding but was mostly resolved and then this evening she started having sudden onset of heavy bleeding. LMP 07/15/22. A2. No abdominal pain. She admits to some lightheadedness. She admits to large clots. No fever, chills, dysuria, nausea, vomiting. - Related Data Home Medications Medication Instructions Recorded Confirmed Amoxicillin 1,000 mg PO DAILY 04/15/22 04/15/22 Omeprazole 20 mg PO DAILY PRN 04/15/22 04/15/22 Allergies Allergy/AdvReac Type Severity Reaction Status Date / Time No Known Allergies Allergy Verified 10/07/22 22:47 Review of Systems ROS Statement: Those systems with pertinent positive or pertinent negative responses have been documented in the HPI. ROS Other: All systems not noted in ROS Statement are negative. Past Medical History Past Medical History: No Reported History Additional Past Medical History / Comment(s): Obstetric history: First 2 pregnancies were spontaneous abortions. Third was a vaginal delivery. This is her fourth and she had care with me since the first trimester. Blood type is O+, antibodies negative, RPR nonreactive, hepatitis B- , GBS positive, rubella immune. She did see [facility] for her history of hepatitis C. History of Any Multi-Drug Resistant Organisms: None Reported Past Surgical History: No Surgical Hx Reported Additional Past Surgical History / Comment(s): retained Nexplanon removed from Left upper arm Past Anesthesia/Blood Transfusion Reactions: No Reported Reaction Past Psychological History: No Psychological Hx Reported Smoking Status: Never smoker Past Alcohol Use History: None Reported Past Drug Use History: None Reported - Past Family History Mother Family Medical History: No Reported History General Exam Limitations: no limitations General appearance: alert, in no apparent distress Head exam: Present: atraumatic, normocephalic, normal inspection Eye exam: Present: normal appearance Neck exam: Present: normal inspection, full ROM Respiratory exam: Present: normal lung sounds bilaterally. Absent: respiratory distress, wheezes, rales, rhonchi, stridor Cardiovascular Exam: Present: normal rhythm, tachycardia, normal heart sounds. Absent: systolic murmur, diastolic murmur, rubs, gallop, clicks GI/Abdominal exam: Present: soft. Absent: distended, tenderness, guarding, rebound, rigid External exam: Present: normal external exam Speculum exam: Present: vaginal bleeding (Large clots) By manual exam: Present: normal by manual exam Neurological exam: Present: alert, oriented X3, CN II-XII intact Psychiatric exam: Present: normal affect, normal mood Skin exam: Present: warm, dry, intact, normal color. Absent: rash Course Vital Signs 10/07/22 10/07/22 10/08/22 22:42 23:26 02:43 Temperature 97.9 F Pulse Rate 110 H 92 Respiratory 18 18 Rate Blood Pressure 122/85 124/82 O2 Sat by Pulse 10 L 100 100 Oximetry Medical Decision Making - Medical Decision Making Was pt. sent in by a medical professional or institution (, PA, [employer], urgent care, hospital, or shelter...) When possible be specific @ -No Did you speak to anyone other than the patient for history (EMS, parent, family, police, friend...)? What history was obtained from this source @ -No Did you review nursing and triage notes (agree or disagree)? Why? @ -I reviewed and agree with nursing and triage notes Were old charts reviewed (outside hosp., previous admission, EMS record, old EKG, old radiological studies, urgent care reports/EKG's, shelter records)? Report findings @ -No old charts were reviewed Differential Diagnosis (chest pain, altered mental status, abdominal pain women, abdominal pain men, vaginal bleeding, weakness, fever, dyspnea, syncope, headache, dizziness, GI bleed, back pain, seizure, CVA, palpatations, mental health, musculoskeletal)? @ -MDM Differential Vaginal Bleeding: Spontaneous , threatened , molar , ectopic , bloody show, incompetent cervix, abruptioplacenta, placenta previa, uterine rupture, dysfunctional uterine bleeding, hemorrhage, uterine fibroids. ... This is not meant to be an all-inclusive list EKG interpreted by me (3pts min.). @ -As above X-rays interpreted by me (1pt min.). @ -None done CT interpreted by me (1pt min.). @ -None done U/S interpreted by me (1pt. min.). @ -Ultrasound shows heterogenous endometrium measuring up to 1.0 cm in th ickness with blood flow concerning for retained products What testing was considered but not performed or refused? (CT, X-rays, U/S, labs)? Why? @ -None What meds were considered but not given or refused? Why? @ -None Did you discuss the management of the patient with other professionals (professionals i.e. DrHill, PA, [employer], lab, RT, psych nurse, social welfare administrator, network contract manager, teacher, navigation officer, behavioral health case manager)? Give summary @ -I spoke with Dr. Garcia who accepted the patient for admission stating that she had a few D&Cs planned for the morning and would likely be able to fit the patient in. Was smoking cessation discussed for >3mins.? @ -No Was critical care preformed (if so, how long)? @ -No Were there social determinants of health that impacted care today? How? (Homelessness, low income, unemployed, alcoholism, drug addiction, transportation, low edu. Level, literacy, decrease access to med. care, [facility], rehab)? @ -No Was there de-escalation of care discussed even if they declined (Discuss DNR or withdrawal of care, Hospice)? DNR status @ -No What co-morbidities impacted this encounter? (DM, HTN, Smoking, COPD, CAD, Cancer, CVA, ARF, Chemo, Hep., AIDS, mental health diagnosis, sleep apnea, morbid obesity)? @ -None Was patient admitted / discharged? Hospital course, mention meds given and route, prescriptions, significant lab abnormalities, going to OR and other pe rtinent info. @ -26-year-old female presenting with chief complaint of vaginal bleeding. [facility] [place] This evening she had a dramatic increase in her vaginal bleeding, passing large clots. On pelvic examination I cleared several large clots from the vaginal canal and she had no recurrent bleeding. Hemoglobin 9.5, decreased from hemoglobin of 11.6 on 09/03. HCG 312.7. Ultrasound is concerning for retained products of conception. I spoke with Dr. Garcia who accepted admission of this patient, stating that she had a few D&Cs planned for the morning and likely be able to fit the patient and to this schedule. Patient is agreeable with this plan. I discussed this case with my attending Dr. Batista Undiagnosed new problem with uncertain prognosis? @ -No Drug Therapy requiring intensive monitoring for toxicity (Heparin, Nitro, Insulin, Cardizem)? @ -No Were any procedures done? @ -No Diagnosis/symptom? @ -Incomplete Acute, or Chronic, or Acute on Chronic? @ -Acute Uncomplicated (without systemic symptoms) or Complicated (systemic symptoms)? @ -Complicated Side effects of treatment? @ -No Exacerbation, Progression, or Severe Exacerbation? @ -No Poses a threat to life or bodily function? How? (Chest pain, [place], [place], pneumonia, PE, COPD, DKA, ARF, appy, cholecystitis, CVA, Diverticulitis, Homicidal, Suicidal, threat to staff... and all critical care pts) @ -yes - Lab Data Result diagrams: 10/07/22 23:06 10/07/22 23:06 Lab Results 10/07/22 10/07/22 10/07/22 Range/Units 23:06 23:06 23:06 WBC 5.9 (3.8-10.6) k/uL RBC 3.47 L (3.80-5.40) m/uL Hgb 9.5 L D (11.4-16.0) gm/dL Hct 29.4 L (34.0-46.0) % MCV 84.7 (80.0-100.0) fL MCH 27.4 (25.0-35.0) pg MCHC 32.4 (31.0-37.0) g/dL RDW 13.5 (11.5-15.5) % Plt Count 269 (150-450) k/uL MPV 7.2 Neutrophils % 53 % Lymphocytes % 34 % Monocytes % 7 % Eosinophils % 2 % Basophils % 0 % Neutrophils # 3.2 (1.3-7.7) k/uL Lymphocytes # 2.0 (1.0-4.8) k/uL Monocytes # 0.4 (0-1.0) k/uL Eosinophils # 0.1 (0-0.7) k/uL Basophils # 0.0 (0-0.2) k/uL Hypochromasia Slight PT 10.9 (9.0-12.0) sec INR 1.0 (<1.2) APTT 23.7 (22.0-30.0) sec Sodium 138 (137-145) mmol/L Potassium 3.7 (3.5-5.1) mmol/L Chloride 103 (98-107) mmol/L Carbon Dioxide 28 (22-30) mmol/L Anion Gap 7 mmol/L BUN 12 (7-17) mg/dL Creatinine 0.69 (0.52-1.04) mg/dL Est GFR (CKD-EPI)AfAm >90 (>60 ml/min/1.73 sqM) Est GFR (CKD-EPI)NonAf >90 (>60 ml/min/1.73 sqM) Glucose 112 H (74-99) mg/dL Calcium 9.3 (8.4-10.2) mg/dL Total Bilirubin 0.3 (0.2-1.3) mg/dL AST 52 H (14-36) U/L ALT 90 H (4-34) U/L Alkaline Phosphatase 72 (38-126) U/L Total Protein 6.9 (6.3-8.2) g/dL Albumin 4.1 (3.5-5.0) g/dL HCG, Quant 312.7 mIU/mL Disposition Clinical Impression: Incomplete , Retained products of conception Disposition: ADMITTED IP TO THIS [facility] Condition: Fair Time of Disposition: 01:47
[2022-10-07 23:48] LABS: Partial Thromboplastin Time 23.7 sec (22.0-30.0); Prothrombin Time 10.9 sec (9.0-12.0)
[2022-10-08 00:03] LABS: ALT 90 U/L (4-34); AST 52 U/L (14-36); African American GFR (CKD) >90 (>60 ml/min/1.73 sqM); Albumin 4.1 g/dL (3.5-5.0); Alkaline Phosphatase 72 U/L (38-126); Anion Gap 7 mmol/L; Blood Urea Nitrogen 12 mg/dL (7-17); Calcium 9.3 mg/dL (8.4-10.2); Carbon Dioxide 28 mmol/L (22-30); Chloride 103 mmol/L (98-107); Glucose 112 mg/dL (74-99); Non-African American GFR(CKD) >90 (>60 ml/min/1.73 sqM); Potassium 3.7 mmol/L (3.5-5.1); Sodium 138 mmol/L (137-145); Total Bilirubin 0.3 mg/dL (0.2-1.3); Total Protein 6.9 g/dL (6.3-8.2)
[2022-10-08 00:13] LABS: Basophils % (A) 0 %; Eosinophils # (A) 0.1 k/uL (0-0.7); Eosinophils % (A) 2 %; HCT 29.4 % (34.0-46.0); Hypochromasia Slight; Lymphocytes % (A) 34 %; MCH 27.4 pg (25.0-35.0); MCHC 32.4 g/dL (31.0-37.0); MCV 84.7 fL (80.0-100.0); Mean Platelet Volume 7.2; Monocytes # (A) 0.4 k/uL (0-1.0); Monocytes % (A) 7 %; Neutrophils # (A) 3.2 k/uL (1.3-7.7); Neutrophils % (A) 53 %; Platelet Count 269 k/uL (150-450); RBC 3.47 m/uL (3.80-5.40); RDW 13.5 % (11.5-15.5); WBC 5.9 k/uL (3.8-10.6)
[2022-10-08 00:16] LABS: HGB 9.5 gm/dL (11.4-16.0)
[2022-10-08 00:19] LABS: HCG,Quantitative Serum 312.7 mIU/mL
--- NOTE | 2022-10-08 00:39 | US ---
EXAM: US Pelvis Transvaginal CLINICAL HISTORY: ITS.REASON US Reason: vaginal bleeding, medical 4 weeks ago TECHNIQUE: Real-time transvaginal pelvic ultrasound with image documentation. Transvaginal imaging was used for better evaluation of the endometrium and adnexa. COMPARISON: No relevant prior studies available. FINDINGS: Uterus/cervix: Heterogeneous endometrium measuring up to 1.0 cm in thickness with blood flow concerning for retained products. Uterus measures 9.5 x 4.4 x 3.8 cm. No myometrial mass. Right ovary: Right ovary measures 2.6 x 1.9 x 1.7 cm. Normal blood flow. Left ovary: Left ovary measures 2.7 x 1.4 x 2.1 cm. Normal blood flow. Free fluid: No free fluid. Bladder: Empty bladder which cannot be evaluated with this probe. IMPRESSION: Heterogeneous endometrium measuring up to 1.0 cm in thickness with blood flow concerning for retained products.
[2022-10-08] MEDS ORDERED: SODIUM CHLORIDE 0.9% 1,000 ML IV SCH (01:45)
[2022-10-08] MEDS ORDERED: NALOXONE 0.4 MG/ML 1 ML VIAL IV PRN (01:45)
[2022-10-08] MEDS ORDERED: MORPHINE SULFATE 4 MG/ML SYRINGE IV PRN (01:45)
[2022-10-08] MEDS ORDERED: SODIUM CHLORIDE 0.9% 1,000 ML IV ONE (01:47)
[2022-10-08] MEDS ORDERED: IBUPROFEN IV 800 MG in SODIUM CHLORIDE 0.9% 250 ML IV PRN (04:22)
[2022-10-08] MEDS ORDERED: LACTATED RINGERS 1,000 ML IV SCH (04:30)
[2022-10-08 07:18] LABS: Basophils % (A) 0 %; Eosinophils # (A) 0.1 k/uL (0-0.7); Eosinophils % (A) 1 %; HCT 23.7 % (34.0-46.0); Hypochromasia Slight; Lymphocytes # (A) 1.7 k/uL (1.0-4.8); Lymphocytes % (A) 36 %; MCH 27.6 pg (25.0-35.0); MCHC 32.7 g/dL (31.0-37.0); MCV 84.5 fL (80.0-100.0); Mean Platelet Volume 7.7; Monocytes # (A) 0.3 k/uL (0-1.0); Monocytes % (A) 6 %; Neutrophils # (A) 2.4 k/uL (1.3-7.7); Neutrophils % (A) 52 %; Platelet Count 196 k/uL (150-450); RDW 13.6 % (11.5-15.5); WBC 4.6 k/uL (3.8-10.6)
[2022-10-08 07:32] LABS: HGB 7.7 gm/dL (11.4-16.0)
--- NOTE | 2022-10-08 08:18 | P.HPOB ---
History of Present Illness H&P Date: 10/08/22 Chief Complaint: Failed medical , vaginal bleeding This is a 26-year-old 4 para 20-2 that presented to labor and delivery last evening with a complaint of vaginal bleeding. Patient states she had a elective performed 4 weeks ago at [facility]. Patient states that she was initially given 4 pills of Cytotec and then repeated that dose 24 hours later. Patient stated she had what she thought was a good passage of tissue. Bleeding latent over the next few weeks until yesterday when it increased in flow. Patient did pass clots. Patient was seen in the emergency department where she was felt to be stable. Hemoglobin and the emergency department was noted to be 9, decreased this morning to 7.7. Patient denies dizziness or lightheadedness this morning. Vital signs were noted to be stable. Patient was counseled on need for suction dilation curettage given suspicion for retained products of conception. Of note patient felt she was approximately 6-8 weeks along in the . JACK WINDER history 4 para 1031 She has a history of 2 prior spontaneous AB One full-term normal spontaneous vaginal delivery Current Blood type is O+, RPR is nonreactive, hepatitis B negative, rubella immune, prior history of hepatitis C. Review of Systems Constitutional: Reports fatigue, Denies chills, Denies fever Ears, nose, mouth and throat: Reports headache Cardiovascular: Denies leg edema Respiratory: Denies dyspnea Gastrointestinal: Denies nausea, Denies vomiting Genitourinary: Denies Past Medical History Past Medical History: No Reported History Additional Past Medical History / Comment(s): Obstetric history: First 2 pregnancies were spontaneous abortions. Third was a vaginal delivery. This is her fourth and she had care with [facility] since the first . Blood type is O+, antibodies negative, RPR nonreactive, hepatitis B-, GBS positive, rubella immune. She did see [facility] for her history of hepatitis C. 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 No significant issues noted on an osteopathic structural exam other than those noted in the History and Physical/Consult. Vital Signs Temp Pulse Pulse Resp BP BP Pulse Ox 10/08/22 04:55 98.2 F 89 14 108/74 100 10/08/22 04:10 98.5 F 91 14 116/74 100 10/08/22 02:43 92 18 124/82 100 10/07/22 23:26 100 10/07/22 22:42 97.9 F 110 H 18 122/85 10 L Intake and Output 10/07/22 10/08/22 10/08/22 22:59 06:59 14:59 Other: # Voids 1 Weight 68.039 kg 68.039 kg Targeted physical exam is performed and state in general this is a well- nourished well-developed female in no acute distress resting comfortably in bed. Breathing is noted to be nonlabored, heart has a regular rate and rhythm, abdomen is soft and nontender, on visualization of her pad is saturated greater than 50%, no active bleeding is appreciated on examination. Vital signs are noted to be normal. Results Result Diagrams: 10/08/22 06:55 10/07/22 23:06 Abnormal Lab Results - Last 24 Hours (Table) 10/07/22 10/07/22 10/08/22 Range/Units 23:06 23:06 06:55 RBC 3.47 L 2.80 L (3.80-5.40) m/uL Hgb 9.5 L D 7.7 L D (11.4-16.0) gm/dL Hct 29.4 L 23.7 L (34.0-46.0) % Glucose 112 H (74-99) mg/dL AST 52 H (14-36) U/L ALT 90 H (4-34) U/L Assessment and Plan (1) Vaginal bleeding Current Visit: Yes Status: Acute Code(s): N93.9 - ABNORMAL UTERINE AND VAGI NAL BLEEDING, UNSPECIFIED SNOMED Code(s): 725493500 (2) Incomplete Current Visit: Yes Status: Acute Code(s): O03.4 - INCOMPLETE SPONTANEOUS WITHOUT COMPLICATION SNOMED Code(s): 947115505 (3) Retained products of conception Current Visit: Yes Status: Acute Code(s): BLU2084 - SNOMED Code(s): 693010159 Plan: 26-year-old 4 para 1031 status post elective termination of and of August. Patient admitted last night with increased vaginal bleeding. Patient on ultrasound had suspicion for retained products of conception. Patient was counseled on need for suction dilation current curettage given bleeding and retained products. Patient states understanding. Procedure is reviewed and questions are answered. We'll plan to proceed with suction dilation and curettage
[2022-10-08] MEDS ORDERED: IV FLUID CONTINUATION 600 ML IV ONE (08:51)
[2022-10-08] MEDS ORDERED: DEXAMETHASONE SOD PHOSPHATE 4 MG/ML 1 ML VIAL IVP ONE (08:59)
[2022-10-08] MEDS ORDERED: ONDANSETRON 4 MG/2 ML VIAL IVP ONE (09:00)
[2022-10-08] MEDS ORDERED: ONDANSETRON 4 MG/2 ML VIAL ONE (09:03)
[2022-10-08] MEDS ORDERED: PROPOFOL 10 MG/ML 20 ML VIAL IV ONE (09:15)
[2022-10-08] MEDS ORDERED: KETOROLAC 15 MG/ML 1 ML VIAL ONE (09:15)
[2022-10-08] MEDS ORDERED: METHYLERGONOVINE 0.2 MG/ML 1 ML AMP ONE (09:15)
[2022-10-08] MEDS ORDERED: LIDOCAINE 2% INJ 20 MG/ML (2 ML VIAL) ONE (09:15)
[2022-10-08] MEDS ORDERED: fentaNYL (PF) 50 MCG/ML 2 ML AMP ONE (09:15)
[2022-10-08] MEDS ORDERED: SUCCINYLCHOLINE CHLORIDE 200 MG/10 ML VIAL IV ONE (09:15)
[2022-10-08] MEDS ORDERED: LACTATED RINGERS 1,000 ML IV ONE (09:48)
--- NOTE | 2022-10-08 09:52 | P.OP ---
Date of Procedure: 10/08/22 Preoperative Diagnosis: Retained products of conception, vaginal bleeding Postoperative Diagnosis: Same Procedure(s) Performed: Suction dilation and curettage Anesthesia: BELÉN Surgeon: Kaylie Garcia Estimated Blood Loss (ml): 50 IV fluids (ml): 600 Urine output (ml): 100 Pathology: other (Products of conception) Condition: stable Disposition: PACU Indications for Procedure: Retained products of conception status post elective termination Operative Findings: Moderate amount of products of conception Description of Procedure: Patient was taken back to the operating suite where general anesthesia was obtained without difficulty by the anesthesia department. She was prepped and draped in the normal sterile fashion in the dorsal lithotomy position. The bladder was then drained of clear yellow urine via red rubber catheter. Weighted speculum was placed in the posterior vaginal vault a large clot was noted in the vaginal vault this was cleared the cervix was visualized. The anterior lip of the cervix was then grasped with a single-tooth tenaculum. Endocervical canal was then serially dilated. An 8 curved suction curette was then placed into the cervix and the uterus was cleared of the model moderate amount of products of conception. A gentle sharp curettage was performed with no remaining products appreciated. The curette was placed one more time to ensu re the cavity was empty. The single tooth tenaculum was taken off of the anterior lip of the cervix. Minimal bleeding was noted coming from the uterine cavity. The uterus was noted to be firm and about 6 weeks in size. All instrument removed from the patient's vaginal vault. Patient tolerated procedure well was taken the recovery room awake in stable condition.
[2022-10-08 11:07] VITALS: TEMP 97.8
[2022-10-08] MEDS ORDERED: ACETAMINOPHEN IV (For NPO) 1,000 MG in EMPTY BAG 1 BAG IVPB STA (11:16)
[2022-10-08 12:54] VITALS: BP 119/72; PULSE 89; RESP 16
== END 2022-10-08 12:54 | disposition home or self-care (01) ==
LOC: EC 21:55 → 4FBP 10-08 01:47
PROVIDERS: ADMIT Obstetrics & Gynecology Obstetrics; ATTEND Obstetrics & Gynecology Obstetrics
DX: O07.4 Failed attempted termination of pregnancy without complication (principal); B19.20 Unspecified viral hepatitis C without hepatic coma; K21.9 Gastro-esophageal reflux disease without esophagitis; Z79.899 Other long term (current) drug therapy; Z98.890 Other specified postprocedural states
CPT/HCPCS: 59812; 96360; 96361; 99285; 36415; 88305; 80053; 85025 ×2; 85610; 85730; 84702; 76830; G0378; J0330; J1100; J2210; J2405; J3010; J0131; J1885; J2704; J2001

== ENCOUNTER 2022-10-27 21:22 | Emergency (ER) | payer OTHER ==
[2022-10-27 21:27] VITALS: BP 132/74; PULSE 100; RESP 18; TEMP 97.9
--- NOTE | 2022-10-27 21:42 | ED ---
ENT HPI - General Chief complaint: ENT Stated complaint: Left earache, can't hear out of it Time Seen by Provider: 10/27/22 21:32 Source: patient Mode of arrival: ambulatory Limitations: no limitations - History of Present Illness Initial comments: 26-year-old female presenting with chief complaint of left ear pain. Patient was evaluated at a different facility on Saturday and was started on Augmentin. She states that she is continuing to have pain as well as decreased hearing and ringing in the ear. No cough or congestion or fever. No drainage. Patient does not use Q-tips or irrigate the ear. No injury or trauma. No swelling or redness behind the ear. - Related Data Home Medications Medication Instructions Recorded Confirmed Omeprazole 20 mg PO DAILY PRN 04/15/22 10/08/22 Allergies Allergy/AdvReac Type Severity Reaction Status Date / Time No Known Allergies Allergy Verified 10/08/22 09:06 Review of Systems ROS Statement: Those systems with pertinent positive or pertinent negative responses have been documented in the HPI. ROS Other: All systems not noted in ROS Statement are negative. Past Medical History Past Medical History: No Reported History Additional Past Medical History / Comment(s): Obstetric history: First 2 pregnancies were spontaneous abortions. Third was a vaginal delivery. This is her fourth and she had care with me since the first trimester. Blood type is O+, antibodies negative, RPR nonreactive, hepatitis B- , GBS positive, rubella immune. She did see [facility] for her history of hepatitis C. History of Any Multi-Drug Resistant Organisms: None Reported Past Surgical History: No Surgical Hx Reported Additional Past Surgical History / Comment(s): retained Nexplanon removed from Left upper arm Past Anesthesia/Blood Transfusion Reactions: No Reported Reaction Past Psychological History: No Psychological Hx Reported Smoking Status: Never smoker Past Alcohol Use History: None Reported Past Drug Use History: Methamphetamine - Past Family History Mother Family Medical History: No Reported History General Exam Limitations: no limitations General appearance: alert, in no apparent distress Head exam: Present: atraumatic, normocephalic, normal inspection Eye exam: Present: normal appearance, EOMI Expanded Ear exam: Present: normal external inspection TM/Canal exam: Effusion: Left TM (No erythema or mastoid tenderness.) Neck exam: Present: normal inspection, full ROM Respiratory exam: Absent: respiratory distress Neurological exam: Present: alert, oriented X3, CN II-XII intact Psychiatric exam: Present: normal affect, normal mood Skin exam: Present: warm, dry, intact, normal color. Absent: rash Course Vital Signs 10/27/22 21:24 Temperature 97.9 F Pulse Rate 100 Respiratory 18 Rate Blood Pressure 132/74 O2 Sat by Pulse 100 Oximetry Medical Decision Making - Medical Decision Making Was pt. sent in by a medical professional or institution (, [place], CUSTOMER SERVICE TELLER, urgent care, hospital, or halfway...) When possible be specific @ -No Did you speak to anyone other than the patient for history (EMS, parent, family, police, friend...)? What history was obtained from this source @ -No Did you review nursing and triage notes (agree or disagree)? Why? @ -I reviewed and agree with nursing and triage notes Were old charts reviewed (outside hosp., previous admission, EMS record, old EKG, old radiological studies, urgent care reports/EKG's, halfway records)? Report findings @ -No old charts were reviewed Differential Diagnosis (chest pain, altered mental status, abdominal pain women, abdominal pain men, vaginal bleeding, weakness, fever, dyspnea, syncope, headache, dizziness, GI bleed, back pain, seizure, CVA, palpatations, mental health, musculoskeletal)? @ -Differential includes otitis media, mastoiditis, otitis externa, tympanic membrane rupture, this is not an all inclusive list EKG interpreted by me (3pts min.). @ -As above X-rays interpreted by me (1pt min.). @ -None done CT interpreted by me (1pt min.). @ -None done U/S interpreted by me (1pt. min.). @ -None done What testing was considered but not performed or refused? (CT, X-rays, U/S, labs)? Why? @ -None What meds were considered but not given or refused? Why? @ -None Did you discuss the management of the patient with other professionals (professionals i.e. [place] Rice, CUSTOMER SERVICE TELLER, lab, RT, psych nurse, social worker assistant, dramatic agent, teacher, special skills officer, field nurse case manager)? Give summary @ -No Was smoking cessation discussed for >3mins.? @ -No Was critical care preformed (if so, how long)? @ -No Were there social determinants of health that impacted care today? How? (Homelessness, low income, unemployed, alcoholism, drug addiction, transportation, low edu. Level, literacy, decrease access to med. care, intermediate, rehab)? @ -No Was there de-escalation of care discussed even if they declined (Discuss DNR or withdrawal of care, Hospice)? DNR status @ -No What co-morbidities impacted this encounter? (DM, HTN, Smoking, COPD, CAD, Cancer, CVA, ARF, Chemo, Hep., AIDS, mental health diagnosis, sleep apnea, morbid obesity)? @ -None Was patient admitted / discharged? Hospital course, mention meds given and route, prescriptions, significant lab abnormalities, going to OR and other pertinent info. @ -26-year-old female presented with chief complaint of left ear pain. Patient is currently on Augmentin. On physical examination there is effusion noted with no erythema or bulging. There is minimal wax within the canal. Patient is educated on today's findings. She is instructed to continue her course of Augmentin and add an antihistamine to her regimen. She is provided with ENT to follow-up if necessary. Follow-up with PCP. Report back to ER with any new or worsening symptoms. Discussed return parameters and answered all questions. Patient conveyed verbal understanding and agreed to the plan. I discussed this case in detail with my attending Dr. Sanchez Undiagnosed new problem with uncertain prognosis? @ -No Drug Therapy requiring intensive monitoring for toxicity (Heparin, Nitro, Insulin, Cardizem)? @ -No Were any procedures done? @ -No Diagnosis/symptom? @ -Serous otitis media Acute, or Chronic, or Acute on Chronic? @ -Acute Uncomplicated (without systemic symptoms) or Complicated (systemic symptoms)? @ -uncomplicated Side effects of treatment? @ -No Exacerbation, Progression, or Severe Exacerbation? @ -No Poses a threat to life or bodily function? How? (Chest pain, USA, AR, pneumonia, PE, COPD, DKA, ARF, appy, cholecystitis, CVA, Diverticulitis, Homicidal, Suicidal, threat to staff... and all critical care pts) @ -No Disposition Clinical Impression: Serous otitis media Disposition: HOME SELF-CARE Condition: Good Instructions (If sedation given, give patient instructions): Fluid In The Ear (Serous Otitis Media) (ED) Additional Instructions: Follow-up with PCP. Report back to ER with any new or worsening symptoms. Use [id number] ALLERGY medication (antihistamine) as needed. Continue course of antibiotics recently prescribed. Follow-up with ENT if needed. Is patient prescribed a controlled substance at d/c from ED?: No Referrals: Aixa Perry NPC [Primary Care Provider] - 1-2 days Scott Vargas DO [Doctor of Osteopathic Medicine] - 1-2 days Jake Cardenas MD [STAFF PHYSICIAN] - 1-2 days Time of Disposition: 21:42
== END 2022-10-27 21:56 | disposition home or self-care (01) ==
LOC: EC 21:22
DX: H65.02 Acute serous otitis media, left ear (principal)
CPT/HCPCS: 99282

== ENCOUNTER 2023-02-22 00:09 | Emergency (ER) | payer OTHER ==
[2023-02-22 00:39] VITALS: BP 145/89; PULSE 86; RESP 16; TEMP 98.4
--- NOTE | 2023-02-22 02:38 | ED ---
Upper Extremity HPI - General Chief Complaint: Extremity Injury, Upper Stated Complaint: Broken Left Ring Finger Time Seen by Provider: 02/22/23 00:15 Source: patient Mode of arrival: ambulatory Limitations: no limitations - History of Present Illness Initial Comments: 27 year old female presents emergency department reporting injury to her left fourth digit. States that she slammed her hand in a car door on the . She has had considerable pain and swelling to the digit with decreased range of motion. Denies any bleeding. No overlying skin abrasions or lacerations. She is right-hand dominant. Denies wrist or elbow pain. No other alleviating, precipitating or modifying factors - Related Data Home Medications Medication Instructions Recorded Confirmed Omeprazole 20 mg PO DAILY PRN 04/15/22 10/08/22 Allergies Allergy/AdvReac Type Severity Reaction Status Date / Time No Known Allergies Allergy Verified 02/22/23 00:15 Review of Systems ROS Statement: Those systems with pertinent positive or pertinent negative responses have been documented in the HPI. ROS Other: All systems not noted in ROS Statement are negative. Past Medical History Past Medical History: No Reported History Additional Past Medical History / Comment(s): Obstetric history: First 2 pregnancies were spontaneous abortions. Third was a vaginal delivery. This is her fourth and she had care with me since the first trimester. Blood type is O+, antibodies negative, RPR nonreactive, hepatitis B- , GBS positive, rubella immune. She did see [facility] for her history of hepatitis C. History of Any Multi-Drug Resistant Organisms: None Reported Past Surgical History: No Surgical Hx Reported Additional Past Surgical History / Comment(s): retained Nexplanon removed from Left upper arm Past Anesthesia/Blood Transfusion Reactions: No Reported Reaction Past Psychological History: No Psychological Hx Reported Smoking Status: Never smoker Past Alcohol Use History: None Reported Past Drug Use History: Methamphetamine - Past Family History Mother Family Medical History: No Reported History General Exam Limitations: no limitations Head exam: Present: atraumatic, normocephalic, normal inspection Extremities exam: Present: other (Ecchymosis and swelling to the left fourth digit. Slight contracted appearance to the digit but patient is able to fully extend actively. 2+ radial and ulnar pulses. Compartments are soft) Course Vital Signs 02/22/23 00:12 Temperature 98.4 F Pulse Rate 86 Respiratory 16 Rate Blood Pressure 145/89 O2 Sat by Pulse 99 Oximetry Medical Decision Making - Medical Decision Making Was pt. sent in by a medical professional or institution (, [place], SOCIAL MEDIA SENIOR ASSOCIATE, urgent care, hospital, or correction...) When possible be specific @ -No Did you speak to anyone other than the patient for history (EMS, parent, family, police, friend...)? What history was obtained from this source @ -No Did you review nursing and triage notes (agree or disagree)? Why? @ -I reviewed and agree with nursing and triage notes Were old charts reviewed (outside hosp., previous admission, EMS record, old EKG, old radiological studies, urgent care reports/EKG's, correction records)? Report findings @ -No old charts were reviewed Differential Diagnosis (chest pain, altered mental status, abdominal pain women, abdominal pain men, vaginal bleeding, weakness, fever, dyspnea, syncope, headache, dizziness, GI bleed, back pain, seizure, CVA, palpatations, mental health, musculoskeletal)? @ -Differential Musculoskeletal Muscular strain, contusion, ligament sprain, fracture, arthritis, septic arthritis, bursitis, cellulitis, muscle spasm, nerve compression, DVT, arterial occlusion, herpes zoster, electrolyte abnormality, tumor.... This is not meant to be in all inclusive list EKG interpreted by me (3pts min.). @ -Not done X-rays interpreted by me (1pt min.). @ -Yes and demonstrates no acute fracture CT interpreted by me (1pt min.). @ -None done U/S interpreted by me (1pt. min.). @ -None done What testing was considered but not performed or refused? (CT, X-rays, U/S, labs)? Why? @ -None What meds were considered but not given or refused? Why? @ -None Did you discuss the management of the patient with other professionals (professionals i.e. , PA, SOCIAL MEDIA SENIOR ASSOCIATE, lab, RT, psych nurse, rn social services, assistant terminal manager, teacher, targeting acquisition officer, director of casework department)? Give summary @ -No Was smoking cessation discussed for >3mins.? @ -No Was critical care preformed (if so, how long)? @ -No Were there social determinants of health that impacted care today? How? (Homelessness, low income, unemployed, alcoholism, drug addiction, transportation, low edu. Level, literacy, decrease access to med. care, retirement, rehab)? @ -No Was there de-escalation of care discussed even if they declined (Discuss DNR or withdrawal of care, Hospice)? DNR status @ -No What co-morbidities impacted this encounter? (DM, HTN, Smoking, COPD, CAD, Cancer, CVA, ARF, Chemo, Hep., AIDS, mental health diagnosis, sleep apnea, morbid obesity)? @ -None Was patient admitted / discharged? Hospital course, mention meds given and route, prescriptions, significant lab abnormalities, going to OR and other pertinent info. @ -Discharged. Upon arrival patient was placed into bed 19. Thorough history and physical exam was performed. Patient is offered pain medications however she refuses. She does go for x-ray which demonstrates no acute fracture. Results are discussed with the patient. She is placed in a baseball splint. Instructed to rest, ice and elevate. Alternate taking Motrin and Tylenol for pain and return for any new or worsening symptoms. Patient agreeable to plan and discharged in stable condition Undiagnosed new problem with uncertain prognosis? @ -No Drug Therapy requiring intensive monitoring for toxicity (Heparin, Nitro, Insulin, Cardizem)? @ -No Were any procedures done? @ -No Diagnosis/symptom? @ -Acute left fourth digit pain, acute crush injury Acute, or Chronic, or Acute on Chronic? @ -Acute Uncomplicated (without systemic symptoms) or Complicated (systemic symptoms)? @ -Uncomplicated Side effects of treatment? @ -No Exacerbation, Progression, or Severe Exacerbation? @ -No Poses a threat to life or bodily function? How? (Chest pain, USA, [place], pneumonia, PE, COPD, DKA, ARF, appy, cholecystitis, CVA, Diverticulitis, Homicidal, Suicidal, threat to staff... and all critical care pts) @ -No Disposition Clinical Impression: Finger sprain Disposition: HOME SELF-CARE Condition: Stable Instructions (If sedation given, give patient instructions): Finger Sprain (ED) Additional Instructions: Ice the finger for 20 minutes 4 times a day. Take Motrin and Tylenol alternating for pain. Wear the splint for comfort. Follow-up with your doctor and return for any new or worsening symptoms. Is patient prescribed a controlled substance at d/c from ED?: No Referrals: Mykel Romano [Primary Care Provider] - 1-2 days Time of Disposition: 02:38
--- NOTE | 2023-02-22 06:42 | XR ---
EXAM: XR Left Hand Complete, 3 or More Views CLINICAL HISTORY: 4th digit injury TECHNIQUE: Frontal, lateral and oblique views of the left hand. COMPARISON: No relevant prior studies available. FINDINGS: Bones/joints: Unremarkable. No evidence of acute fracture or dislocation. Soft tissues: Mild fourth digit soft tissue swelling. No radiopaque foreign body. IMPRESSION: 1. No evidence of acute fracture or dislocation. 2. Mild fourth digit soft tissue swelling.
== END 2023-02-22 02:51 | disposition home or self-care (01) ==
LOC: EC 00:09
DX: S63.615A Unspecified sprain of left ring finger, initial encounter (principal); F15.90 Other stimulant use, unspecified, uncomplicated; W23.2XXA Caught, crushed, jammed or pinched between a moving and stationary object, initial encounter
CPT/HCPCS: 99283

== ENCOUNTER 2023-06-11 08:48 | Emergency (ER) | payer OTHER ==
--- NOTE | 2023-06-11 09:05 | ED ---
General Adult HPI - General Chief complaint: ENT Stated complaint: Sore Throat Time Seen by Provider: 06/11/23 08:52 Source: patient, RN notes reviewed Mode of arrival: ambulatory Limitations: no limitations - History of Present Illness Initial comments: Patient is a pleasant 27-year-old female present to the emergency department with concerns with sore throat. Patient has had mild congestion the past couple of days. Sore throat started last night and has progressed since that time. Patient states it feels like she is swallowing glass. No fever. No cough. - Related Data Home Medications Medication Instructions Recorded Confirmed Omeprazole 20 mg PO DAILY PRN 04/15/22 10/08/22 Allergies Allergy/AdvReac Type Severity Reaction Status Date / Time No Known Allergies Allergy Verified 02/22/23 00:15 Review of Systems ROS Statement: Those systems with pertinent positive or pertinent negative responses have been documented in the HPI. ROS Other: All systems not noted in ROS Statement are negative. Constitutional: Denies: fever Eyes: Denies: eye pain ENT: Reports: as per HPI, ear pain, throat pain, congestion Cardiovascular: Denies: chest pain Endocrine: Denies: fatigue Gastrointestinal: Denies: abdominal pain Past Medical History Past Medical History: No Reported History Additional Past Medical History / Comment(s): Obstetric history: First 2 pregnancies were spontaneous abortions. Third was a vaginal delivery. This is her fourth and she had care with me since the first trimester. Blood type is O+, antibodies negative, RPR nonreactive, hepatitis B- , GBS positive, rubella immune. She did see [facility] for her history of hepatitis C. History of Any Multi-Drug Resistant Organisms: None Reported Past Surgical History: No Surgical Hx Reported Additional Past Surgical History / Comment(s): retained Nexplanon removed from Left upper arm Past Anesthesia/Blood Transfusion Reactions: No Reported Reaction Past Psychological History: No Psychological Hx Reported Smoking Status: Never smoker Past Alcohol Use History: None Reported Past Drug Use History: Methamphetamine - Past Family History Mother Family Medical History: No Reported History General Exam Limitations: no limitations General appearance: alert, in no apparent distress Head exam: Present: normocephalic Eye exam: Present: normal appearance ENT exam: Present: TM's normal bilaterally, other (Mild erythema right greater than left tonsil. No swelling. No uvular shift. No evidence of abscess. No trismus.) Neck exam: Present: normal inspection. Absent: lymphadenopathy Respiratory exam: Present: normal lung sounds bilaterally Cardiovascular Exam: Present: regular rate, normal rhythm GI/Abdominal exam: Present: soft. Absent: tenderness Extremities exam: Present: normal inspection Neurological exam: Present: alert Psychiatric exam: Present: normal affect, normal mood Skin exam: Present: normal color Course Vital Signs 06/11/23 08:49 Temperature 98.9 F Pulse Rate 86 Respiratory 16 Rate Blood Pressure 138/89 O2 Sat by Pulse 98 Oximetry Medical Decision Making - Medical Decision Making Was pt. sent in by a medical professional or institution (, [place], LANDSCAPE TECHNICIAN, urgent care, hospital, or care home...) When possible be specific @ -No Did you speak to anyone other than the patient for history (EMS, parent, family, police, friend...)? What history was obtained from this source @ -No Did you review nursing and triage notes (agree or disagree)? Why? @ -I reviewed and agree with nursing and triage notes Were old charts reviewed (outside hosp., previous admission, EMS record, old EKG, old radiological studies, urgent care reports/EKG's, care home records)? Report findings @ -No old charts were reviewed Differential Diagnosis (chest pain, altered mental status, abdominal pain women, abdominal pain men, vaginal bleeding, weakness, fever, dyspnea, syncope, headache, dizziness, GI bleed, back pain, seizure, CVA, palpatations, mental health, musculoskeletal)? @ -Differential Fever: Pneumonia, viral URI, endocarditis, myocarditis, pericarditis, otitis, sinusitis, peritonsillar Abscess, retropharyngeal Abscess, epiglottitis, peritonitis, appendicitis, Estephania cystitis, diverticulitis, hepatitis, colitis, UTI, PID, TOA, pyelonephritis, prostatitis, epididymitis, meningitis, encephalitis, pulmonary embolism, CVA, thyroid storm, pancreatitis, adrenal crisis, cavernous sinus thrombosis, this is not meant to be an all-inclusive list. EKG interpreted by me (3pts min.). @ -As above X-rays interpreted by me (1pt min.). @ -None done CT interpreted by me (1pt min.). @ -None done U/S interpreted by me (1pt. min.). @ -None done What testing was considered but not performed or refused? (CT, X-rays, U/S, labs)? Why? @ -None What meds were considered but not given or refused? Why? @ -Consider Tamiflu however patient is not a candidate secondary to symptoms greater than 48 hours Did you discuss the management of the patient with other professionals (professionals i.e. , PA, LANDSCAPE TECHNICIAN, lab, RT, psych nurse, social work coordinator, bench press operator, teacher, control officer manager, medical case manager)? Give summary @ -No Was smoking cessation discussed for >3mins.? @ -No Was critical care preformed (if so, how long)? @ -No Were there social determinants of health that impacted care today? How? (Homelessness, low income, unemployed, alcoholism, drug addiction, transportation, low edu. Level, literacy, decrease access to med. care, retirement, rehab)? @ -No Was there de-escalation of care discussed even if they declined (Discuss DNR or withdrawal of care, Hospice)? DNR status @ -No What co-morbidities impacted this encounter? (DM, HTN, Smoking, COPD, CAD, Cancer, CVA, ARF, Chemo, Hep., AIDS, mental health diagnosis, sleep apnea, morbid obesity)? @ -None Was patient admitted / discharged? Hospital course, mention meds given and route, prescriptions, significant lab abnormalities, going to OR and other pertinent info. @ -Patient reevaluated and updated. Patient states she has had symptoms greater than 2 days and therefore is not a candidate for Tamiflu. Patient will be discharged Undiagnosed new problem with uncertain prognosis? @ -No Drug Therapy requiring intensive monitoring for toxicity (Heparin, Nitro, Insulin, Cardizem)? @ -No Were any procedures done? @ -No Diagnosis/symptom? @ -Influenza Acute, or Chronic, or Acute on Chronic? @ -Acute Uncomplicated (without systemic symptoms) or Complicated (systemic symptoms)? @ -Default Side effects of treatment? @ -No Exacerbation, Progression, or Severe Exacerbation? @ -No Poses a threat to life or bodily function? How? (Chest pain, USA, [place], pneumonia, PE, COPD, DKA, ARF, appy, cholecystitis, CVA, Diverticulitis, Homicidal, Suicidal, threat to staff... and all critical care pts) @ -No - Lab Data Lab Results 04/02/24 04/02/24 Range/Units 09:15 09:15 Influenza Type A (PCR) Not Detected (Not Detectd) Influenza Type B (PCR) Detected A (Not Detectd) RSV (PCR) Not Detected (Not Detectd) SARS-CoV-2 (PCR) Not Detected (Not Detectd) Group A Strep (PCR) NOT DETECTED (Not Detectd) Disposition Clinical Impression: Influenza Disposition: HOME SELF-CARE Condition: Stable Instructions (If sedation given, give patient instructions): Influenza (ED) Additional Instructions: [id number] Tylenol or Motrin as needed. Please do follow-up with your primary care physician in the next day or 2 for recheck. Return for difficulty breathing, vomiting, uncontrolled fever, worsening symptoms or other concerns. Is patient prescribed a controlled substance at d/c from ED?: No Referrals: Mykel Romano [Primary Care Provider] - 1-2 days Time of Disposition: 10:11
[2023-06-11] MEDS: IBUPROFEN 600 MG TAB PO STA (09:12)
[2023-06-11 09:24] VITALS: RESP 16
[2023-06-11 10:44] VITALS: BP 129/76; PULSE 87; TEMP 98.7
== END 2023-06-11 10:34 | disposition home or self-care (01) ==
LOC: EC 08:48
DX: J10.1 Influenza due to other identified influenza virus with other respiratory manifestations (principal); F15.90 Other stimulant use, unspecified, uncomplicated
CPT/HCPCS: 87636; 87651; 99283

== ENCOUNTER 2023-10-21 13:21 | Emergency (ER) | payer OTHER ==
[2023-10-21] MEDS ORDERED: SODIUM CHLORIDE 0.9% 1,000 ML BAG ONE (13:55)
--- NOTE | 2023-11-17 09:05 | US ---
Site ID [facility] Patient Berna Antony ID [id number] Age/Gender: 27Y, O Order # N/A Procedure US Transvaginal Date 10/21/2023 2:35:00 PM EXAMINATION TYPE: US transvaginal DATE OF EXAM: 11/03/2023 COMPARISON: NONE CLINICAL INDICATION: 27 year old with history of elective 3 weeks ago, vaginal bleeding. TECHNIQUE: Transvaginal (TV). Transvaginal sonographic images of the pelvis were acquired. EXAM MEASUREMENTS: Uterus: 8.9 x 3.9 x 6.0 cm Endometrial Stripe: 1.3 cm Right Ovary: 2.7 x 3.5 x 2.6 cm Left Ovary: 3.3 x 2.7 x 2.2 cm 1. Uterus: Anteverted wnl 2. Endometrium: Thickened heterogenous appearance. Power Doppler flow identified within the endometr ium. 3. Right Ovary: wnl 4. Left Ovary: wnl Spectral, color and waveform doppler imaging shows good arterial and venous flow within the ovaries ; there is no evidence for ovarian torsion. 5. Bilateral Adnexa: wnl 6. Posterior cul-de-sac: wnl Preliminary results were given to [place] Diza in at time of exam. IMPRESSION: Thickened heterogenous endometrium with vascularity most consistent with retained products of concept ion.
== END 2023-10-21 17:40 | disposition home or self-care (01) ==
LOC: EC 13:21
DX: N93.9 Abnormal uterine and vaginal bleeding, unspecified (principal)
CPT/HCPCS: 76830; 86850; 86900; 86901; 93975; 96360; 99284

== ENCOUNTER 2024-03-27 18:06 | Emergency (ER) | payer OTHER ==
[2024-03-27] MEDS: diphenhydrAMINE 50 MG/ML 1 ML VIAL IVP STA (19:54)
[2024-03-27] MEDS: METOCLOPRAMIDE 5 MG/ML 2 ML VIAL IVP STA (19:55)
[2024-03-27] MEDS: FAMOTIDINE 20 MG/2 ML VIAL IV STA (19:55)
[2024-03-27] MEDS: DEXTROSE 5%-LACTATED RINGERS 1,000 ML IV SCH (19:57)
[2024-03-27 19:58] LABS: Anisocytosis Slight; Basophils % (A) 0 %; Eosinophils % (A) 0 %; HCT 24.9 % (34.0-46.0); Hypochromasia Moderate; Lymphocytes # (A) 0.5 k/uL (1.0-4.8); Lymphocytes % (A) 9 %; MCH 23.5 pg (25.0-35.0); MCV 73.6 fL (80.0-100.0); Mean Platelet Volume 7.2; Microcytosis Moderate; Monocytes # (A) 0.5 k/uL (0-1.0); Monocytes % (A) 9 %; Neutrophils # (A) 4.2 k/uL (1.3-7.7); Neutrophils % (A) 79 %; Platelet Count 174 k/uL (150-450); RBC 3.39 m/uL (3.80-5.40); RDW 16.4 % (11.5-15.5); WBC 5.3 k/uL (3.8-10.6)
--- NOTE | 2024-03-27 20:07 | ED ---
General Adult HPI - General Chief complaint: Nausea/Vomiting/Diarrhea Stated complaint: Covid+(19 weeks preg) Time Seen by Provider: 03/27/24 18:41 Source: patient Mode of arrival: ambulatory Limitations: no limitations - History of Present Illness Initial comments: This is a 28-year-old female , 19 weeks presenting today for nausea and vomiting 1 day after being diagnosed with COVID-19. Patient states she 1 to an urgent care yesterday due to sore throat and headache, was tested for COVID and the rapid test was negative however was called today and the send out lab was positive. Patient states today she had 2 episodes of nonbloody n onbilious emesis. States she had a crampy right side abdominal pain right before having episodes of emesis but no abdominal pain currently. Patient i denies chest pain or shortness of breath. Endorses congestion, sore throat, intermittent headache, none currently. States she is had chills and sweats today has not measured any fevers. Took two 500 mg tablets of Tylenol about 2 hours before coming in. 2 episode of nonbloody nonbilious emesis prior to arrival. Denies diarrhea, hematochezia or melena. Denies dysuria or urinary frequency. States she is still feeling movements - Related Data Home Medications Medication Instructions Recorded Confirmed Omeprazole 20 mg PO DAILY PRN 04/15/22 10/08/22 Allergies Allergy/AdvReac Type Severity Reaction Status Date / Time No Known Allergies Allergy Verified 03/27/24 18:24 Review of Systems ROS Statement: Those systems with pertinent positive or pertinent negative responses have been documented in the HPI. ROS Other: All systems not noted in ROS Statement are negative. Past Medical History Past Medical History: No Reported History Additional Past Medical History / Comment(s): Obstetric history: First 2 pregnancies were spontaneous abortions. Third was a vaginal delivery. This is her fourth and she had care with me since the first trimester. Blood type is O+, antibodies negative, RPR nonreactive, hepatitis B- , GBS positive, rubella immune. She did see [facility] for her history of hepatitis C. History of Any Multi-Drug Resistant Organisms: None Reported Past Surgical History: No Surgical Hx Reported Additional Past Surgical History / Comment(s): retained Nexplanon removed from Left upper arm Past Anesthesia/Blood Transfusion Reactions: No Reported Reaction Past Psychological History: No Psychological Hx Reported Smoking Status: Never smoker Past Alcohol Use History: None Reported Past Drug Use History: Methamphetamine - Past Family History Mother Family Medical History: No Reported History General Exam - General Exam Comments Initial Comments: PE: CONSTITUTIONAL: No apparent distress, well appearing SKIN: Warm, dry, no jaundice, hives or petechiae EYES: Pupils are equally round, extraocular movements intact without nystagmus, clear conjunctiva, non-icteric sclera HENT: Normocephalic, atraumatic, moist mucus membranes, oropharynx clear without exudates NECK: , Full range of motion, normal appearance PULMONARY: Clear to auscultation without wheezes, rhonchi, or rales, normal excursion, no accessory muscle use and no stridor CARDIOVASCULAR: Regular rate, rhythm, normal S1 and S2. No appreciated murmurs, rubs or gallops. Strong radial pulses with intact distal perfusion. No lower extremity edema GASTROINTESTINAL: Soft, active bowel sounds throughout, non-tender, non- distended, no palpable masses, no rebound or guarding. No hepatosplenomegaly GENITOURINARY: MUSCULOSKELETAL: Extremities have no gross deformity NEUROLOGIC:_a/o x 3, GCS 15, normal mentation and speech. Moves all extremities x 4 without motor or sensory deficit PSYCHIATRIC:_normal mood and affect, thought process is clear and linear Limitations: no limitations Course Vital Signs 03/27/24 03/27/24 18:21 21:56 Temperature 98.6 F 99.1 F Pulse Rate 112 H 71 Respiratory 16 18 Rate Blood Pressure 114/63 124/68 O2 Sat by Pulse 97 98 Oximetry Medical Decision Making - Medical Decision Making Was pt. sent in by a medical professional or institution (, PA, TYRE RETREADER, urgent care, hospital, or senior care...) When possible be specific @ -No Did you speak to anyone other than the patient for history (EMS, parent, family, police, friend...)? What history was obtained from this source @ -No Did you review nursing and triage notes (agree or disagree)? Why? @ -I reviewed nursing and triage notes Were old charts reviewed (outside hosp., previous admission, EMS record, old EKG, old radiological studies, urgent care reports/EKG's, senior care records)? Report findings @ -Medical records reviewed Differential Diagnosis (chest pain, altered mental status, abdominal pain women, abdominal pain men, vaginal bleeding, weakness, fever, dyspnea, syncope, headache, dizziness, GI bleed, back pain, seizure, CVA, palpatations, mental health, musculoskeletal)? Differential diagnosis remains broad however top considerations include nausea and vomiting in , hyperemesis gravidarum, viral gastroenteritis, other viral infection, cholecystitis, appendicitis, gastritis this is not an all- inclusive list EKG interpreted by me (3pts min.). @ -As above X-rays interpreted by me (1pt min.). @ -None done CT interpreted by me (1pt min.). @ -None done U/S interpreted by me (1pt. min.). @ -None done What testing was considered but not performed or refused? (CT, X-rays, U/S, labs)? Why? Imaging of the abdomen, including both ultrasound and CT scan was considered however patient had a benign abdominal exam, no abdominal pain at time of assessment, no right upper quadrant tenderness, no right lower quadrant tenderness to palpation and recent diagnosis of COVID-19 to explain her symptoms What meds were considered but not given or refused? Why? @ -None Did you discuss the management of the patient with other professionals (professionals i.e. , PA, TYRE RETREADER, lab, RT, psych nurse, social insurance specialist, wood machinist apprentice, teacher, coastal/harbor defense officer, caseworker)? Give summary @ -No Was smoking cessation discussed for >3mins.? @ -No Was critical care preformed (if so, how long)? @ -No Were there social determinants of health that impacted care today? How? (Homelessness, low income, unemployed, alcoholism, drug addiction, transportation, low edu. Level, literacy, decrease access to med. care, fdc, rehab)? @ -No Was there de-escalation of care discussed even if they declined (Discuss DNR or withdrawal of care, Hospice)? @ -No What co-morbidities impacted this encounter? (DM, HTN, Smoking, COPD, CAD, Cancer, CVA, ARF, Chemo, Hep., AIDS, mental health diagnosis, sleep apnea, morbid obesity)? @ -None Was patient admitted / discharged? Hospital course, mention meds given and route, prescriptions, significant lab abnormalities, going to OR and other pertinent info. Discharged-patient is a previously well 28-year-old female, 19 weeks pr esenting for nausea and vomiting, chills after being diagnosed with COVID-19. She called her deburr operator who directed her to come to the emergency department for medications for her nausea and vomiting. Complete history and physical exam were performed. Patient is well-appearing, benign abdominal exam. I discussed with patient plan for IV fluids, nausea medications, basic labs. Patient is ag reeable with plan of care. Labs reviewed. Patient noted to have a hemoglobin of 8,, patient previously had hemoglobin 7.7 on 10/08/2022, 9.9 on 10/07/2022, patient appears to be chronically anemic. Otherwise grossly within normal limits. On reassessment patient has been able to tolerate p.o. juice and states that her symptoms have improved and request to be discharged home. I did discuss with patient her hemoglobin of 8, patient states she just had labs drawn by her deburr operator though is unsure what those labs showed. She denies any melena or hematochezia, hematemesis or other sources of bleeding. I suspect microcytic anemia from iron deficiency given patient's age, gender and . Discussed with her pending urinalysis and heart tones anticipated discharge. Patient agreeable with plan of care. Urinalysis showed cloudy appearance with trace protein, 4+ glucose, 28 squamous cells and occasional bacteria but negative nitrates and leukocyte esterase. This appears to be a contaminated specimen so we will not initiate antibiotics at this time. heart tones showed heart rate of 156, patient discharged in stable condition. In my medical judgment there is currently no evidence of an immediate life- threatening or surgical condition. Discharge is therefore indicated at this time. Discharge treatment instructions, follow up instructions, and appropriate emergency department return precautions were discussed with the patient and/or medical decision maker. Patient and/or medical decision maker expressed understanding of and agreed with the treatment plan, follow up instructions, and emergency department return precaution. All patient's and/or medical decision maker's questions were answered. Undiagnosed new problem with uncertain prognosis? @ -No Drug Therapy requiring intensive monitoring for toxicity (Heparin, Nitro, Insulin, Cardizem)? @ -No Were any procedures done? @ -No Diagnosis/symptom? @Nausea and vomiting, COVID-19 Acute, or Chronic, or Acute on Chronic? Acute Uncomplicated (without systemic symptoms) or Complicated (systemic symptoms)? Complicated Side effects of treatment? @ -No Exacerbation, Progression, or Severe Exacerbation? @ -No Poses a threat to life or bodily function? How? (Chest pain, [place], [place], pneumonia, PE, COPD, DKA, ARF, appy, cholecystitis, CVA, Diverticulitis, Homicidal, Suicidal, threat to staff... and all critical care pts) @ -No - Lab Data Result diagrams: 03/27/24 19:39 03/27/24 19:39 Lab Results 03/27/24 03/27/24 03/27/24 Range/Units 19:39 19:39 20:50 WBC 5.3 (3.8-10.6) k/uL RBC 3.39 L (3.80-5.40) m/uL Hgb 8.0 L (11.4-16.0) gm/dL Hct 24.9 L (34.0-46.0) % MCV 73.6 L (80.0-100.0) fL MCH 23.5 L (25.0-35.0) pg MCHC 32.0 (31.0-37.0) g/dL RDW 16.4 H (11.5-15.5) % Plt Count 174 (150-450) k/uL MPV 7.2 Neutrophils % 79 % Lymphocytes % 9 % Monocytes % 9 % Eosinophils % 0 % Basophils % 0 % Neutrophils # 4.2 (1.3-7.7) k/uL Lymphocytes # 0.5 L (1.0-4.8) k/uL Monocytes # 0.5 (0-1.0) k/uL Eosinophils # 0.0 (0-0.7) k/uL Basophils # 0.0 (0-0.2) k/uL Hypochromasia Moderate Anisocytosis Slight Microcytosis Moderate Sodium 134 L (137-145) mmol/L Potassium 3.7 (3.5-5.1) mmol/L Chloride 106 (98-107) mmol/L Carbon Dioxide 24 (22-30) mmol/L Anion Gap 4 mmol/L BUN 9 (7-17) mg/dL Creatinine 0.54 (0.52-1.04) mg/dL Est GFR (CKD-EPI)AfAm >90 (>60 ml/min/1.73 sqM) Est GFR (CKD-EPI)NonAf >90 (>60 ml/min/1.73 sqM) Glucose 101 H (74-99) mg/dL Calcium 8.6 (8.4-10.2) mg/dL Total Bilirubin <0.1 L (0.2-1.3) mg/dL AST 29 (14-36) U/L ALT 30 (4-34) U/L Alkaline Phosphatase 59 (38-126) U/L Total Protein 6.0 L (6.3-8.2) g/dL Albumin 3.3 L (3.5-5.0) g/dL Lipase 154 (23-300) U/L Urine Color Light Yellow Urine Appearance Cloudy H (Clear) Urine pH 6.0 (5.0-8.0) Ur Specific [place] 1.018 (1.001-1.035) Urine Protein Trace H (Negative) Urine Glucose (UA) 4+ H (Negative) Urine Ketones Negative (Negative) Urine Blood Negative (Negative) Urine Nitrite Negative (Negative) Urine Bilirubin Negative (Negative) Urine Urobilinogen <2.0 (<2.0) mg/dL Ur Leukocyte Esterase Negative (Negative) Urine RBC 2 (0-5) /hpf Urine WBC 4 (0-5) /hpf Ur Squamous Epith Cells 28 H (0-4) /hpf Urine Bacteria Occasional H (None) /hpf Urine Mucus Rare H (None) /hpf Disposition Clinical Impression: Nausea and vomiting, COVID-19 Disposition: HOME SELF-CARE Condition: Good Instructions (If sedation given, give patient instructions): Acute Nausea and Vomiting (ED) Additional Instructions: Every disease is a spectrum and a small chance still exists that a serious condition could develop, for this reason, please monitor yourself closely for new, changing or worsening symptoms, symptoms that persist beyond 72 hours, fever more than 4 days, decreased movements, vaginal bleeding, new or severe abdominal pain shortness of breath, chest pain, inability to tolerate/keep down fluids or your medications, inability to follow up with outpatient providers as instructed and should you experience these symptoms or should you have any further concerns for your wellbeing please return to the ED or call 911 immediately. Your hemoglobin was low today, please follow-up with your deburr operator or primar y care provider for recheck and further workup. PLEASE call your primary care physician as soon as possible to arrange / discuss plan for followup appointment. Appointment in the next 1-3 days is strongly encouraged if possible. PLEASE let us know here before you leave if there is anything further we can do to be of any assistance. Take care and feel Better! Is patient prescribed a controlled substance at d/c from ED?: No Referrals: None,Stated [Primary Care Provider] - 1-2 days Forms: Work/School Release
[2024-03-27 20:21] LABS: ALT 30 U/L (4-34); AST 29 U/L (14-36); African American GFR (CKD) >90 (>60 ml/min/1.73 sqM); Albumin 3.3 g/dL (3.5-5.0); Alkaline Phosphatase 59 U/L (38-126); Anion Gap 4 mmol/L; Blood Urea Nitrogen 9 mg/dL (7-17); Calcium 8.6 mg/dL (8.4-10.2); Carbon Dioxide 24 mmol/L (22-30); Chloride 106 mmol/L (98-107); Glucose 101 mg/dL (74-99); Lipase 154 U/L (23-300); Non-African American GFR(CKD) >90 (>60 ml/min/1.73 sqM); Potassium 3.7 mmol/L (3.5-5.1); Sodium 134 mmol/L (137-145); Total Bilirubin <0.1 mg/dL (0.2-1.3)
[2024-03-27 21:02] LABS: Appearance,Urine Cloudy (Clear); Bacteria,Urine Occasional /hpf; Bilirubin,Urine Negative (Negative); Blood,Urine Negative (Negative); Color,Urine Light Yellow; Glucose,Urine (UA) 4+ (Negative); Ketones,Urine Negative (Negative); Leukocyte Esterase,Urine Negative (Negative); Mucus,Urine Rare /hpf; Nitrite,Urine Negative (Negative); Protein,Urine Trace (Negative); RBC,Urine 2 /hpf (0-5); Specific Gravity,Urine 1.018 (1.001-1.035); Squamous Epithelial Cell,Urine 28 /hpf (0-4); Urobilinogen,Urine <2.0 mg/dL (<2.0); WBC,Urine 4 /hpf (0-5)
[2024-03-27 21:57] VITALS: BP 124/68; PULSE 71; RESP 18; TEMP 99.1
== END 2024-03-27 21:57 | disposition home or self-care (01) ==
LOC: EC 18:06
DX: O98.512 Other viral diseases complicating pregnancy, second trimester (principal); U07.1 COVID-19; Z3A.19 19 weeks gestation of pregnancy
CPT/HCPCS: 36415; 80053; 83690; 85025; 81001; 99284; 96374; 96375; 96361; J1200; J2765; J3490

== ENCOUNTER 2024-07-13 12:11 | Emergency (ER) | payer OTHER ==
--- NOTE | 2024-07-13 12:56 | ED ---
Recheck HPI - General Chief Complaint: Recheck/Abnormal Lab/Rx Stated Complaint: Abn labs(34 weeks preg) Time Seen by Provider: 07/13/24 12:39 Source: patient, RN notes reviewed Mode of arrival: ambulatory Limitations: no limitations - History of Present Illness Initial Comments: This is a 28-year-old female who presents to the emergency department for low hemoglobin. Patient had her first appointment with hematology today, and her blood work demonstrated a hemoglobin of 6.6. She was sent to the emergency department for a transfusion. She is 34 weeks . Denies any vaginal bleeding or abdominal pain. She is having regular movement. Unsure what is causing the anemia, however states that it may be related to the . Currently follows with Dr. Romero, [facility]. She required a blood transfusion once several years ago, however she had a large amount of bleeding following an and required an emergency D&C. Denies any bleeding at this time. She does also report feeling weak and unwell over the last couple of days. MD Complaint: abnormal lab - Related Data Home Medications Medication Instructions Recorded Confirmed RX: Omeprazole 20 mg PO DAILY 04/15/22 07/13/24 Ferrous Sulfate [Feosol] 325 mg PO Q2D 07/13/24 07/13/24 Wpl-Hkde-Wuzlp Acid 1 cap PO DAILY 07/13/24 07/13/24 [-U Capsule (formulary)] RX: Amoxicillin 500 mg PO DIRECTED 07/13/24 07/13/24 Allergies Allergy/AdvReac Type Severity Reaction Status Date / Time No Known Allergies Allergy Verified 07/13/24 13:52 Review of Systems ROS Statement: Those systems with pertinent positive or pertinent negative responses have been documented in the HPI. ROS Other: All systems not noted in ROS Statement are negative. Past Medical History Past Medical History: No Reported History Additional Past Medical History / Comment(s): Obstetric history: First 2 pregnancies were spontaneous abortions. Third was a vaginal delivery. This is her fourth and she had care with me since the first trimester. Blood type is O+, antibodies negative, RPR nonreactive, hepatitis B- , GBS positive, rubella immune. She did see [facility] for her history of hepatitis C. History of Any Multi-Drug Resistant Organisms: None Reported Past Surgical History: No Surgical Hx Reported Additional Past Surgical History / Comment(s): retained Nexplanon removed from Left upper arm Past Anesthesia/Blood Transfusion Reactions: No Reported Reaction Past Psychological History: No Psychological Hx Reported Smoking Status: Never smoker Past Alcohol Use History: None Reported Past Drug Use History: Methamphetamine - Past Family History Mother Family Medical History: No Reported History General Exam Limitations: no limitations General appearance: alert, in no apparent distress Head exam: Present: atraumatic, normocephalic, normal inspection Respiratory exam: Present: normal lung sounds bilaterally. Absent: respiratory distress, wheezes, rales, rhonchi, stridor Cardiovascular Exam: Present: regular rate, normal rhythm Neurological exam: Present: alert, oriented X3, CN II-XII intact Psychiatric exam: Present: normal affect, normal mood Skin exam: Present: warm, dry, intact, normal color. Absent: rash Course Vital Signs 07/13/24 07/13/24 07/13/24 12:32 14:27 14:34 Temperature 98.0 F Pulse Rate 108 H 103 H Pulse Rate [ 103 H Pulse Oximetery ] Respiratory 18 18 Rate Blood Pressure 114/66 131/75 O2 Sat by Pulse 99 99 Oximetry 07/13/24 07/13/24 07/13/24 16:30 16:34 16:40 Temperature 97.2 F L 97.6 F 98.1 F Pulse Rate 95 96 87 Pulse Rate [ Pulse Oximetery ] Respiratory 18 18 18 Rate Blood Pressure 113/71 122/65 124/71 O2 Sat by Pulse 100 98 99 Oximetry 07/13/24 07/13/24 07/13/24 17:00 18:02 19:24 Temperature 98.5 F Pulse Rate 90 91 87 Pulse Rate [ Pulse Oximetery ] Respiratory 17 17 18 Rate Blood Pressure 113/65 115/63 117/77 O2 Sat by Pulse 99 99 99 Oximetry Medical Decision Making - Medical Decision Making This is a 28 year old female who presents to the emergency department for low hemoglobin. Was pt. sent in by a medical professional or institution? @ -Hem/onc Did you speak to anyone other than the patient for history? @ -No Did you review nursing and triage notes? @ -Yes, and I agree, it is accurate with regards to the patient's symptoms. Were old charts reviewed? @ -No Differential Diagnosis? @ -Bleeding, iron deficiency, folate deficiency, vitamin B12 deficiency, this is not meant to be an all-inclusive list. EKG interpreted by me (3pts min.)? @ -Not obtained X-rays interpreted by me (1pt min.)? @ -Not obtained CT interpreted by me (1pt min.)? @ -Not obtained U/S interpreted by me (1pt. min.)? @ -Not obtained What testing was considered but not performed? (CT, X-rays, U/S, labs)? Why? @ -None What meds were considered but not given? Why? @ -None Did you discuss the management of the patient with other professionals? @ -Yes, Dr. Romero, [employer]. She advised that the patient could be transfused with a unit of blood in the emergency department and discharged home. She did not need to be admitted or go upstairs for additional monitoring. Did you reconcile home meds? @ -No Was smoking cessation discussed for >3mins.? @ -No Was critical care preformed (if so, how long)? @ -No Were there social determinants of health that impacted care today? How? (Olga elessness, low income, unemployed, alcoholism, drug addiction, transportation, low edu. Level, literacy, decrease access to med. care, penitentiary, rehab)? @ -No Was there de-escalation of care discussed even if they declined? (Discuss DNR or withdrawal of care, Hospice)? @ -No What co-morbidities impacted this encounter? (DM, HTN, Smoking, COPD, CAD, C ancer, CVA, Hep., AIDS, mental health diagnosis, sleep apnea, morbid obesity)? @ - Was patient admitted / discharged? @ -Discharged. Lab work demonstrates a hemoglobin of 6.1 and is otherwise unremarkable. Urinalysis negative for signs of infection. Case discussed with Dr. Romero, [employer] [employer]. She advised that the patient can be transfused with 1 unit of PRBCs and discharged home. She did not need to be admitted or go upstairs for monitoring. tones were auscultated and found to be within normal limits. 1 unit of PRBCs transfused. Patient tolerated this well without any complications. She was discharged home in stable condition and advised to follow-up with [facility] and hem/onc. Case discussed with ED attending Dr. Perez. Return precautions reviewed in depth, the patient is instructed to return to the emergency department with any new, worsening, or concerning symptoms. Patient verbalized understanding. Undiagnosed new problem with uncertain prognosis? @ -None Drug Therapy requiring intensive monitoring for toxicity (Heparin, Nitro, Insulin, Cardizem)? @ -None Were any procedures done? @ -None Diagnosis/symptom? @ -Low hemoglobin, encounter for blood transfusion Acute, or Chronic, or Acute on Chronic? @ -Acute Uncomplicated (without systemic symptoms) or Complicated (systemic symptoms)? @ -Uncomplicated Side effects of treatment? @ -None Exacerbation, Progression, or Severe Exacerbation] @ -Not applicable Poses a threat to life or bodily function? @ -No - Lab Data Result diagrams: 07/13/24 13:06 07/13/24 13:06 Lab Results 07/13/24 07/13/24 07/13/24 Range/Units 12:55 13:06 13:06 WBC 8.29 (4.50-10.00) 10*3/uL RBC 3.01 L (4.10-5.20) 10*6/uL Hgb 6.1 L* (12.0-15.0) g/dL Hct 20.7 L (37.2-46.3) % MCV 68.8 L (80.0-97.0) fL MCH 20.3 L (27.0-32.0) pg MCHC 29.5 L (32.0-37.0) g/dL Plt Count 196 (140-440) 10*3/uL MPV 9.1 L (9.5-12.2) fL Immature Gran % (Auto) 0.8 % Neutrophils % 74.8 % Lymphocytes % 15.1 % Monocytes % 8.2 % Eosinophils % 0.7 % Basophils % 0.4 % Immature Gran # 0.07 H (0.00-0.04) 10*3/uL Neutrophils # 6.20 (1.80-7.70) 10*3/uL Lymphocytes # 1.25 (0.90-5.00) 10*3/uL Monocytes # 0.68 (0.20-1.00) 10*3/uL Eosinophils # 0.06 (0.04-0.35) 10*3/uL Basophils # 0.03 (0.00-0.10) 10*3/uL PT (10.0-12.5) sec INR (<1.2) APTT (22.0-30.0) sec Sodium 135 L (137-145) mmol/L Potassium 3.8 (3.5-5.1) mmol/L Chloride 106 (98-107) mmol/L Carbon Dioxide 21 L (22-30) mmol/L Anion Gap 8 mmol/L BUN 12 (7-17) mg/dL Creatinine 0.52 (0.52-1.04) mg/dL Est GFR (CKD-EPI)AfAm >90 (>60 ml/min/1.73 sqM) Est GFR (CKD-EPI)NonAf >90 (>60 ml/min/1.73 sqM) Glucose 99 (74-99) mg/dL Calcium 9.0 (8.4-10.2) mg/dL Total Bilirubin 0.3 (0.2-1.3) mg/dL AST 33 (14-36) U/L ALT 28 (4-34) U/L Alkaline Phosphatase 112 (38-126) U/L Total Protein 5.7 L (6.3-8.2) g/dL Albumin 3.0 L (3.5-5.0) g/dL Urine Color Urine Appearance (Clear) Urine pH (5.0-8.0) Ur Specific University (1.001-1.035) Urine Protein (Negative) Urine Glucose (UA) (Negative) Urine Ketones (Negative) Urine Blood (Negative) Urine Nitrite (Negative) Urine Bilirubin (Negative) Urine Urobilinogen (<2.0) mg/dL Ur Leukocyte Esterase (Negative) Blood Type O Positive Blood Type Recheck O Pos Bld Type Recheck Status No Antibody Screen NEGATIVE Crossmatch See Detail Spec Expiration Date 07/16/2024 - 235407/13/24 07/13/24 Range/Units 13:06 15:03 WBC (4.50-10.00) 10*3/uL RBC (4.10-5.20) 10*6/uL Hgb (12.0-15.0) g/dL Hct (37.2-46.3) % MCV (80.0-97.0) fL MCH (27.0-32.0) pg MCHC (32.0-37.0) g/dL Plt Count (140-440) 10*3/uL MPV (9.5-12.2) fL Immature Gran % (Auto) % Neutrophils % % Lymphocytes % % Monocytes % % Eosinophils % % Basophils % % Immature Gran # (0.00-0.04) 10*3/uL Neutrophils # (1.80-7.70) 10*3/uL Lymphocytes # (0.90-5.00) 10*3/uL Monocytes # (0.20-1.00) 10*3/uL Eosinophils # (0.04-0.35) 10*3/uL Basophils # (0.00-0.10) 10*3/uL PT 9.5 L (10.0-12.5) sec INR 0.8 (<1.2) APTT 20.6 L (22.0-30.0) sec Sodium (137-145) mmol/L Potassium (3.5-5.1) mmol/L Chloride (98-107) mmol/L Carbon Dioxide (22-30) mmol/L Anion Gap mmol/L BUN (7-17) mg/dL Creatinine (0.52-1.04) mg/dL Est GFR (CKD-EPI)AfAm (>60 ml/min/1.73 sqM) Est GFR (CKD-EPI)NonAf (>60 ml/min/1.73 sqM) Glucose (74-99) mg/dL Calcium (8.4-10.2) mg/dL Total Bilirubin (0.2-1.3) mg/dL AST (14-36) U/L ALT (4-34) U/L Alkaline Phosphatase (38-126) U/L Total Protein (6.3-8.2) g/dL Albumin (3.5-5.0) g/dL Urine Color Colorless Urine Appearance Clear (Clear) Urine pH 7.0 (5.0-8.0) Ur Specific [employer] 1.023 (1.001-1.035) Urine Protein Negative (Negative) Urine Glucose (UA) 2+ H (Negative) Urine Ketones Negative (Negative) Urine Blood Negative (Negative) Urine Nitrite Negative (Negative) Urine Bilirubin Negative (Negative) Urine Urobilinogen 2.0 (<2.0) mg/dL Ur Leukocyte Esterase Negative (Negative) Blood Type Blood Type Recheck Bld Type Recheck Status Antibody Screen Crossmatch Spec Expiration Date Disposition Clinical Impression: Low hemoglobin, Encounter for blood transfusion Disposition: HOME SELF-CARE Instructions (If sedation given, give patient instructions): Blood Transfusion Reactions (ED), Anemia (ED), Blood Transfusion (DC) Additional Instructions: Return to the emergency department with any new, worsening, or concerning symptoms. Follow-up with hematology and your [facility]. Is patient prescribed a controlled substance at d/c from ED?: No Referrals: None,Stated [Primary Care Provider] - 1-2 days Time of Disposition: 19:35
[2024-07-13 13:18] LABS: Basophils # (A) 0.03 10*3/uL (0.00-0.10); Basophils % (A) 0.4 %; Eosinophils # (A) 0.06 10*3/uL (0.04-0.35); Eosinophils % (A) 0.7 %; HCT 20.7 % (37.2-46.3); Lymphocytes # (A) 1.25 10*3/uL (0.90-5.00); Lymphocytes % (A) 15.1 %; MCH 20.3 pg (27.0-32.0); MCHC 29.5 g/dL (32.0-37.0); MCV 68.8 fL (80.0-97.0); Mean Platelet Volume 9.1 fL (9.5-12.2); Monocytes # (A) 0.68 10*3/uL (0.20-1.00); Monocytes % (A) 8.2 %; Neutrophils % (A) 74.8 %; Platelet Count 196 10*3/uL (140-440); RBC 3.01 10*6/uL (4.10-5.20); RDW 16.7 % (11.5-14.5); WBC 8.29 10*3/uL (4.50-10.00)
[2024-07-13 13:30] LABS: ALT 28 U/L (4-34); AST 33 U/L (14-36); African American GFR (CKD) >90 (>60 ml/min/1.73 sqM); Alkaline Phosphatase 112 U/L (38-126); Anion Gap 8 mmol/L; Blood Urea Nitrogen 12 mg/dL (7-17); Carbon Dioxide 21 mmol/L (22-30); Chloride 106 mmol/L (98-107); Glucose 99 mg/dL (74-99); Non-African American GFR(CKD) >90 (>60 ml/min/1.73 sqM); Potassium 3.8 mmol/L (3.5-5.1); Sodium 135 mmol/L (137-145); Total Bilirubin 0.3 mg/dL (0.2-1.3); Total Protein 5.7 g/dL (6.3-8.2)
[2024-07-13 13:36] LABS: HGB 6.1 g/dL (12.0-15.0)
[2024-07-13 13:38] LABS: INR 0.8 (<1.2); Prothrombin Time 9.5 sec (10.0-12.5)
[2024-07-13 13:41] LABS: Partial Thromboplastin Time 20.6 sec (22.0-30.0)
[2024-07-13 15:16] LABS: Appearance,Urine Clear (Clear); Bilirubin,Urine Negative (Negative); Blood,Urine Negative (Negative); Color,Urine Colorless; Glucose,Urine (UA) 2+ (Negative); Ketones,Urine Negative (Negative); Leukocyte Esterase,Urine Negative (Negative); Nitrite,Urine Negative (Negative); Protein,Urine Negative (Negative); Specific Gravity,Urine 1.023 (1.001-1.035)
[2024-07-13 17:06] VITALS: TEMP 98.5
[2024-07-13 19:29] VITALS: BP 117/77; PULSE 87; RESP 18
== END 2024-07-13 20:08 | disposition home or self-care (01) ==
LOC: EC 12:11
DX: O99.013 Anemia complicating pregnancy, third trimester (principal); Z3A.34 34 weeks gestation of pregnancy
CPT/HCPCS: 36415; 86900; 86901; 80053; 85025; 85610; 85730; 86850; 86920; 81003; 99283; 36430; P9016

== ENCOUNTER 2024-07-29 17:20 | Emergency (ER) | payer OTHER ==
[2024-07-29 17:26] VITALS: RESP 18
--- NOTE | 2024-07-29 17:46 | ED ---
General Adult HPI - General Source: patient, RN notes reviewed Mode of arrival: wheelchair Limitations: no limitations <Domingo Carbajal - Last Filed: 07/29/24 17:43> <Jenny Marie - Last Filed: 07/29/24 22:38> - General Chief complaint: Nausea/Vomiting/Diarrhea Stated complaint: 36 weeks , vomitting blood Time Seen by Provider: 07/29/24 17:34 - History of Present Illness Initial comments: Quick note: This is a A2 36-week 28-year-old female presenting for GI symptoms since 0300 this morning. Patient states she began having nausea/vomiting this morning that started as bile and has since become brown and bloody starting at 1300 today. Patient endorses associated diarrhea without not ing blood in stool. Mentions diffuse abdominal pain/cramping she associates to constant vomiting. (Domingo Carbajal) This is a 28-year-old female, [id number], with a history of anemia, presenting to the emergency department with referral from OB with concerns of nausea, vomitin g, epigastric abdominal pain that started at 0300 this morning. Patient states that she has had persistent nausea and vomiting throughout the day and this evening she noticed that there was bright red blood within her vomit and a dark brown appearance. She has had a few episodes of nonbloody diarrhea. Denies history of GI bleeds or NSAID use. Patient states that she received an iron transfusion recently due to anemia during . She endorses mild associated rhinorrhea and cough. She denies vaginal bleeding, urinary complaints, fevers, chills. (Jenny Marie) - Related Data Home Medications Medication Instructions Recorded Confirmed Omeprazole 20 mg PO DAILY 04/15/22 07/13/24 Amoxicillin 500 mg PO DIRECTED 07/13/24 07/13/24 Ferrous Sulfate [Feosol] 325 mg PO Q2D 07/13/24 07/13/24 Cwd-Upwa-Dbcam Acid 1 cap PO DAILY 07/13/24 07/13/24 [-U Capsule (formulary)] Allergies Allergy/AdvReac Type Severity Reaction Status Date / Time No Known Allergies Allergy Verified 07/29/24 17:26 Review of Systems ROS Other: All systems not noted in ROS Statement are negative. <Domingo Carbajal - Last Filed: 07/29/24 17:43> ROS Other: All systems not noted in ROS Statement are negative. <Jenny Marie - Last Filed: 07/29/24 22:38> ROS Statement: Those systems with pertinent positive or pertinent negative responses have been documented in the HPI. Past Medical History Past Medical History: Blood Disorder Additional Past Medical History / Comment(s): Obstetric history: First 2 pregnancies were spontaneous abortions. Third was a vaginal delivery. This is her fourth and she had care with me since the first trimester. Blood type is O+, antibodies negative, RPR nonreactive, hepatitis B- , GBS positive, rubella immune. She did see [facility] for her history of hepatitis C. IRON DEFICIENCY ANEMIA History of Any Multi-Drug Resistant Organisms: None Reported Past Surgical History: No Surgical Hx Reported Additional Past Surgical History / Comment(s): retained Nexplanon removed from Left upper arm Past Anesthesia/Blood Transfusion Reactions: No Reported Reaction Past Psychological History: No Psychological Hx Reported Smoking Status: Never smoker Past Alcohol Use History: None Reported Past Drug Use History: Methamphetamine - Past Family History Mother Family Medical History: No Reported History <Domingo Carbajal - Last Filed: 07/29/24 17:43> General Exam Limitations: no limitations <RvaenDomingo - Last Filed: 07/29/24 17:43> General appearance: alert, in no apparent distress ENT exam: Present: normal exam, mucous membranes moist Neck exam: Present: normal inspection. Absent: tenderness, meningismus, lymphadenopathy Respiratory exam: Present: normal lung sounds bilaterally. Absent: respiratory distress, wheezes, rales, rhonchi, stridor Cardiovascular Exam: Present: regular rate, normal rhythm, normal heart sounds. Absent: systolic murmur, diastolic murmur, rubs, gallop, clicks GI/Abdominal exam: Present: soft, normal bowel sounds. Absent: distended, tenderness, guarding, rebound, rigid Extremities exam: Present: normal inspection, full ROM, normal capillary refill. Absent: tenderness, pedal edema, joint swelling, calf tenderness Back exam: Present: normal inspection. Absent: CVA tenderness (R), CVA tenderness (L) Skin exam: Present: warm, dry, intact, normal color. Absent: rash <Jenny Marie - Last Filed: 07/29/24 22:38> - General Exam Comments Initial Comments: Visual Physical Exam Vital signs reviewed General: Patient has watery dark brown vomit in basin with speckles of brown on shirt due to vomiting Head: Normocephalic, atraumatic Eyes: PERRLA, EOMI ENT: Airway patent Chest: Nonlabored breathing Skin: No visual rash, normal skin tone Neuro: Alert and oriented 3 Musculoskeletal: No gross abnormalities (Domingo Carbajal) Course Vital Signs 07/29/24 07/29/24 07/29/24 17:23 19:52 22:01 Temperature 98.2 F 98.3 F Pulse Rate 127 H 110 H 113 H Respiratory 18 18 18 Rate Blood Pressure 128/84 121/64 109/55 O2 Sat by Pulse 97 100 99 Oximetry Medical Decision Making <Domingo Carbajal - Last Filed: 07/29/24 17:43> - Lab Data Result diagrams: 07/29/24 18:03 07/29/24 18:03 <Jenny Marie - Last Filed: 07/29/24 22:38> - Medical Decision Making I completed the quick note portion of this chart signed TWILA Hernández (Domingo Carbajal) Was pt. sent in by a medical professional or institution ([facility], [employer], urgent care, hospital, or group home...) When possible be specific @ -No Did you speak to anyone other than the patient for history (EMS, parent, family, police, friend...)? What history was obtained from this source @ -No Did you review nursing and triage notes (agree or disagree)? Why? @ -I reviewed and agree with nursing and triage notes Were old charts reviewed (outside hosp., previous admission, EMS record, old EKG, old radiological studies, urgent care reports/EKG's, group home records)? Report findings @ -No old charts were reviewed Differential Diagnosis (chest pain, altered mental status, abdominal pain women, abdominal pain men, vaginal bleeding, weakness, fever, dyspnea, syncope, headache, dizziness, GI bleed, back pain, seizure, CVA, palpatations, mental health, musculoskeletal)? @ -Not applicable EKG interpreted by me (3pts min.). @ -As above X-rays interpreted by me (1pt min.). @ -None done CT interpreted by me (1pt min.). @ -None done U/S interpreted by me (1pt. min.). @ -None done What testing was considered but not performed or refused? (CT, X-rays, U/S, jack maradiaga)? Why? @ -None What meds were considered but not given or refused? Why? @ -None Did you discuss the management of the patient with other professionals (professionals i.e. , PA, [employer], lab, RT, psych nurse, director social service, records administrator, teacher, privacy officer, machine adjuster leader case trim)? Give summary @ -No Was smoking cessation discussed for >3mins.? @ -No Was critical care preformed (if so, how long)? @ -No Were there social determinants of health that impacted care today? How? (Homelessness, low income, unemployed, alcoholism, drug addiction, transportation, low edu. Level, literacy, decrease access to med. care, [place] [facility], rehab)? @ -No Was there de-escalation of care discussed even if they declined (Discuss DNR or withdrawal of care, Hospice)? DNR status @ -No What co-morbidities impacted this encounter? (DM, HTN, Smoking, COPD, CAD, Cancer, CVA, ARF, Chemo, Hep., AIDS, mental health diagnosis, sleep apnea, morbid obesity)? @ -None Was patient admitted / discharged? Hospital course, mention meds given and route, prescriptions, significant lab abnormalities, going to OR and other pertinent info. @ -Discharge. 28-year-old female sent emerged part with complaint of acute nausea, vomiting, diarrhea. Patient was eventually evaluated a quick note where laboratory orders were placed. On my evaluation the patient she is dry heaving. Abdominal examination is unremarkable. She is provided with IV fluids and antiemetics. Patient's hemoglobin has improved from previous as today's level is 8.7 and previous testing was 6.1 on 07/13. Urinalysis consistent with infection including 4+ ketones. CMP is unremarkable. Viral testing is negative. Patient is provided with Protonix and Pepcid in addition to Tums and reevaluation states that she is feeling better. Recommend follow-up with OB and primary care provider. Return parameters discussed. Patient stable for discharge. Case discussed with Dr. Maki Undiagnosed new problem with uncertain prognosis? @ -No Drug Therapy requiring intensive monitoring for toxicity (Heparin, Nitro, Insulin, Cardizem)? @ -No Were any procedures done? @ -No Diagnosis/symptom? @ -Acute nausea and vomiting, hematemesis Acute, or Chronic, or Acute on Chronic? @ -Acute Uncomplicated (without systemic symptoms) or Complicated (systemic symptoms)? @ -Uncomplicated Side effects of treatment? @ -No Exacerbation, Progression, or Severe Exacerbation? @ -No Poses a threat to life or bodily function? How? (Chest pain, USA, MS, pneumonia, PE, COPD, DKA, ARF, appy, cholecystitis, CVA, Diverticulitis, Homicidal, Suicidal, threat to staff... and all critical care pts) @ -No (Jenny Marie) - Lab Data Lab Results 07/29/24 07/29/24 07/29/24 Range/Units 17:55 18:03 18:03 WBC 12.91 H (4.50-10.00) 10*3/uL RBC 3.95 L (4.10-5.20) 10*6/uL Hgb 8.7 L D (12.0-15.0) g/dL Hct 29.3 L (37.2-46.3) % MCV 74.2 L D (80.0-97.0) fL MCH 22.0 L (27.0-32.0) pg MCHC 29.7 L (32.0-37.0) g/dL Plt Count 185 (140-440) 10*3/uL MPV 9.3 L (9.5-12.2) fL Immature Gran % (Auto) 0.9 % Neutrophils % 90.9 % Lymphocytes % 3.8 % Monocytes % 4.2 % Eosinophils % 0.0 % Basophils % 0.2 % Immature Gran # 0.11 H (0.00-0.04) 10*3/uL Neutrophils # 11.75 H (1.80-7.70) 10*3/uL Lymphocytes # 0.49 L (0.90-5.00) 10*3/uL Monocytes # 0.54 (0.20-1.00) 10*3/uL Eosinophils # 0.00 L (0.04-0.35) 10*3/uL Basophils # 0.02 (0.00-0.10) 10*3/uL Manual Slide Review Performed Anisocytosis (manual) Present PT 10.4 (10.0-12.5) sec INR 0.9 (<1.2) APTT 23.2 (22.0-30.0) sec Sodium (137-145) mmol/L Potassium (3.5-5.1) mmol/L Chloride (98-107) mmol/L Carbon Dioxide (22-30) mmol/L Anion Gap mmol/L BUN (7-17) mg/dL Creatinine (0.52-1.04) mg/dL Est GFR (CKD-EPI)AfAm (>60 ml/min/1.73 sqM) Est GFR (CKD-EPI)NonAf (>60 ml/min/1.73 sqM) Glucose (74-99) mg/dL Plasma Lactic Acid Nixon (0.7-2.0) mmol/L Calcium (8.4-10.2) mg/dL Magnesium (1.6-2.3) mg/dL Total Bilirubin (0.2-1.3) mg/dL AST (14-36) U/L ALT (4-34) U/L Alkaline Phosphatase (38-126) U/L Total Protein (6.3-8.2) g/dL Albumin (3.5-5.0) g/dL Lipase (23-300) U/L Urine Color Urine Appearance (Clear) Urine pH (5.0-8.0) Ur Specific [place] (1.001-1.035) Urine Protein (Negative) Urine Glucose (UA) (Negative) Urine Ketones (Negative) Urine Blood (Negative) Urine Nitrite (Negative) Urine Bilirubin (Negative) Urine Urobilinogen (<2.0) mg/dL Ur Leukocyte Esterase (Negative) Urine RBC (0-5) /hpf Urine WBC (0-5) /hpf Ur Squamous Epith Cells (0-4) /hpf Urine Bacteria (None) /hpf Urine Mucus (None) /hpf Influenza Type A (PCR) (Not Detectd) Influenza Type B (PCR) (Not Detectd) RSV (PCR) (Not Detectd) SARS-CoV-2 (PCR) (Not Detectd) Blood Type O Positive Blood Type Recheck O Pos Bld Type Recheck Status No 07/29/24 07/29/24 07/29/24 Range/Units 18:03 18:03 19:05 WBC (4.50-10.00) 10*3/uL RBC (4.10-5.20) 10*6/uL Hgb (12.0-15.0) g/dL Hct (37.2-46.3) % MCV (80.0-97.0) fL MCH (27.0-32.0) pg MCHC (32.0-37.0) g/dL Plt Count (140-440) 10*3/uL MPV (9.5-12.2) fL Immature Gran % (Auto) % Neutrophils % % Lymphocytes % % Monocytes % % Eosinophils % % Basophils % % Immature Gran # (0.00-0.04) 10*3/uL Neutrophils # (1.80-7.70) 10*3/uL Lymphocytes # (0.90-5.00) 10*3/uL Monocytes # (0.20-1.00) 10*3/uL Eosinophils # (0.04-0.35) 10*3/uL Basophils # (0.00-0.10) 10*3/uL Manual Slide Review Anisocytosis (manual) PT (10.0-12.5) sec INR (<1.2) APTT (22.0-30.0) sec Sodium 136 L (137-145) mmol/L Potassium 3.6 (3.5-5.1) mmol/L Chloride 104 (98-107) mmol/L Carbon Dioxide 22 (22-30) mmol/L Anion Gap 10 mmol/L BUN 11 (7-17) mg/dL Creatinine 0.54 (0.52-1.04) mg/dL Est GFR (CKD-EPI)AfAm >90 (>60 ml/min/1.73 sqM) Est GFR (CKD-EPI)NonAf >90 (>60 ml/min/1.73 sqM) Glucose 85 (74-99) mg/dL Plasma Lactic Acid [place] 1.3 (0.7-2.0) mmol/L Calcium 9.4 (8.4-10.2) mg/dL Magnesium 1.4 L (1.6-2.3) mg/dL Total Bilirubin 1.2 (0.2-1.3) mg/dL AST 33 (14-36) U/L ALT 35 H (4-34) U/L Alkaline Phosphatase 178 H (38-126) U/L Total Protein 6.7 (6.3-8.2) g/dL Albumin 3.7 (3.5-5.0) g/dL Lipase 359 H (23-300) U/L Urine Color Yellow Urine Appearance Cloudy H (Clear) Urine pH 6.0 (5.0-8.0) Ur Specific [place] 1.031 (1.001-1.035) Urine Protein 1+ H (Negative) Urine Glucose (UA) Negative (Negative) Urine Ketones 4+ H (Negative) Urine Blood Negative (Negative) Urine Nitrite Negative (Negative) Urine Bilirubin Negative (Negative) Urine Urobilinogen 2.0 (<2.0) mg/dL Ur Leukocyte Esterase Negative (Negative) Urine RBC 1 (0-5) /hpf Urine WBC 5 (0-5) /hpf Ur Squamous Epith Cells 10 H (0-4) /hpf Urine Bacteria Rare H (None) /hpf Urine Mucus Occasional H (None) /hpf Influenza Type A (PCR) (Not Detectd) Influenza Type B (PCR) (Not Detectd) RSV (PCR) (Not Detectd) SARS-CoV-2 (PCR) (Not Detectd) Blood Type Blood Type Recheck Bld Type Recheck Status 07/29/24 Range/Units 19:05 WBC (4.50-10.00) 10*3/uL RBC (4.10-5.20) 10*6/uL Hgb (12.0-15.0) g/dL Hct (37.2-46.3) % MCV (80.0-97.0) fL MCH (27.0-32.0) pg MCHC (32.0-37.0) g/dL Plt Count (140-440) 10*3/uL MPV (9.5-12.2) fL Immature Gran % (Auto) % Neutrophils % % Lymphocytes % % Monocytes % % Eosinophils % % Basophils % % Immature Gran # (0.00-0.04) 10*3/uL Neutrophils # (1.80-7.70) 10*3/uL Lymphocytes # (0.90-5.00) 10*3/uL Monocytes # (0.20-1.00) 10*3/uL Eosinophils # (0.04-0.35) 10*3/uL Basophils # (0.00-0.10) 10*3/uL Manual Slide Review Anisocytosis (manual) PT (10.0-12.5) sec INR (<1.2) APTT (22.0-30.0) sec Sodium (137-145) mmol/L Potassium (3.5-5.1) mmol/L Chloride (98-107) mmol/L Carbon Dioxide (22-30) mmol/L Anion Gap mmol/L BUN (7-17) mg/dL Creatinine (0.52-1.04) mg/dL Est GFR (CKD-EPI)AfAm (>60 ml/min/1.73 sqM) Est GFR (CKD-EPI)NonAf (>60 ml/min/1.73 sqM) Glucose (74-99) mg/dL Plasma Lactic Acid Nixon (0.7-2.0) mmol/L Calcium (8.4-10.2) mg/dL Magnesium (1.6-2.3) mg/dL Total Bilirubin (0.2-1.3) mg/dL AST (14-36) U/L ALT (4-34) U/L Alkaline Phosphatase (38-126) U/L Total Protein (6.3-8.2) g/dL Albumin (3.5-5.0) g/dL Lipase (23-300) U/L Urine Color Urine Appearance (Clear) Urine pH (5.0-8.0) Ur Specific [place] (1.001-1.035) Urine Protein (Negative) Urine Glucose (UA) (Negative) Urine Ketones (Negative) Urine Blood (Negative) Urine Nitrite (Negative) Urine Bilirubin (Negative) Urine Urobilinogen (<2.0) mg/dL Ur Leukocyte Esterase (Negative) Urine RBC (0-5) /hpf Urine WBC (0-5) /hpf Ur Squamous Epith Cells (0-4) /hpf Urine Bacteria (None) /hpf Urine Mucus (None) /hpf Influenza Type A (PCR) Not Detected (Not Detectd) Influenza Type B (PCR) Not Detected (Not Detectd) RSV (PCR) Not Detected (Not Detectd) SARS-CoV-2 (PCR) Not Detected (Not Detectd) Blood Type Blood Type Recheck Bld Type Recheck Status Disposition <Domingo Carbajal - Last Filed: 07/29/24 17:43> Is patient prescribed a controlled substance at d/c from ED?: No Time of Disposition: 20:30 <Jenny Marie - Last Filed: 07/29/24 22:38> Clinical Impression: Nausea and vomiting during Disposition: HOME SELF-CARE Condition: Stable Instructions (If sedation given, give patient instructions): Nausea and Vomiting in (ED) Additional Instructions: Please return to the Emergency Department if symptoms worsen or any other concerns. Referrals: None,Stated [Primary Care Provider] - 1-2 days
[2024-07-29] MEDS ORDERED: SODIUM CHLORIDE 0.9% 1,000 ML IV SCH (18:15)
[2024-07-29 18:40] LABS: Basophils # (A) 0.02 10*3/uL (0.00-0.10); Basophils % (A) 0.2 %; HCT 29.3 % (37.2-46.3); Lymphocytes # (A) 0.49 10*3/uL (0.90-5.00); Lymphocytes % (A) 3.8 %; MCHC 29.7 g/dL (32.0-37.0); Mean Platelet Volume 9.3 fL (9.5-12.2); Monocytes # (A) 0.54 10*3/uL (0.20-1.00); Monocytes % (A) 4.2 %; Neutrophils # (A) 11.75 10*3/uL (1.80-7.70); Neutrophils % (A) 90.9 %; Platelet Count 185 10*3/uL (140-440); RBC 3.95 10*6/uL (4.10-5.20); RDW 23.3 % (11.5-14.5); WBC 12.91 10*3/uL (4.50-10.00)
[2024-07-29] MEDS: SODIUM CHLORIDE 0.9% 2,000 ML IV STA (18:41)
[2024-07-29 18:42] LABS: ALT 35 U/L (4-34); AST 33 U/L (14-36); African American GFR (CKD) >90 (>60 ml/min/1.73 sqM); Albumin 3.7 g/dL (3.5-5.0); Alkaline Phosphatase 178 U/L (38-126); Anion Gap 10 mmol/L; Blood Urea Nitrogen 11 mg/dL (7-17); Calcium 9.4 mg/dL (8.4-10.2); Carbon Dioxide 22 mmol/L (22-30); Chloride 104 mmol/L (98-107); Glucose 85 mg/dL (74-99); INR 0.9 (<1.2); Lipase 359 U/L (23-300); Magnesium 1.4 mg/dL (1.6-2.3); Non-African American GFR(CKD) >90 (>60 ml/min/1.73 sqM); Partial Thromboplastin Time 23.2 sec (22.0-30.0); Potassium 3.6 mmol/L (3.5-5.1); Prothrombin Time 10.4 sec (10.0-12.5); Sodium 136 mmol/L (137-145); Total Bilirubin 1.2 mg/dL (0.2-1.3); Total Protein 6.7 g/dL (6.3-8.2)
[2024-07-29] MEDS: ONDANSETRON 4 MG/2 ML VIAL IVP STA (18:42)
[2024-07-29] MEDS: PANTOPRAZOLE 40 MG/10 ML VIAL IVP STA (18:42)
[2024-07-29 18:46] LABS: HGB 8.7 g/dL (12.0-15.0); MCV 74.2 fL (80.0-97.0)
[2024-07-29] MEDS: MAGNESIUM SULFATE-D5W PMX 1 GM in DEXTROSE/WATER 1 100ML.BAG IVPB SCH (19:33)
[2024-07-29 19:38] LABS: Appearance,Urine Cloudy (Clear); Bacteria,Urine Rare /hpf; Bilirubin,Urine Negative (Negative); Blood,Urine Negative (Negative); Color,Urine Yellow; Glucose,Urine (UA) Negative (Negative); Ketones,Urine 4+ (Negative); Leukocyte Esterase,Urine Negative (Negative); Mucus,Urine Occasional /hpf; Nitrite,Urine Negative (Negative); Protein,Urine 1+ (Negative); RBC,Urine 1 /hpf (0-5); Specific Gravity,Urine 1.031 (1.001-1.035); Squamous Epithelial Cell,Urine 10 /hpf (0-4); WBC,Urine 5 /hpf (0-5)
[2024-07-29 19:48] LABS: Anisocytosis (M) Present
[2024-07-29 19:50] LABS: Influenza A Not Detected (Not Detectd); Influenza B Not Detected (Not Detectd); RSV Not Detected (Not Detectd)
[2024-07-29] MEDS: FAMOTIDINE 20 MG/2 ML VIAL IV STA (20:15)
[2024-07-29] MEDS: CALCIUM CARBONATE 500 MG CHEWABLE PO STA (20:35)
[2024-07-29 22:03] VITALS: BP 109/55; PULSE 113; TEMP 98.3
== END 2024-07-29 22:03 | disposition home or self-care (01) ==
LOC: EC 17:20
DX: O99.891 Other specified diseases and conditions complicating pregnancy (principal); R11.2 Nausea with vomiting, unspecified; Z3A.36 36 weeks gestation of pregnancy
CPT/HCPCS: 36415; 86900; 86901; 80053; 83605; 83690; 83735; 85025; 85610; 85730; 81001; 87636; 99284; 96365; 96366; 96361; 96375; J2405; J3475; J2470; J1308

== ENCOUNTER 2024-08-18 05:55 | Inpatient (IN) | payer OTHER ==
[2024-08-18] MEDS ORDERED: TERBUTALINE 1 MG/ML VIAL SQ PRN (06:04)
[2024-08-18] MEDS ORDERED: TRANEXAMIC 1,000 MG/100ML-NACL 1,000 MG in EMPTY BAG 1 BAG IV PRN (06:04)
[2024-08-18] MEDS ORDERED: METHYLERGONOVINE 0.2 MG/ML 1 ML AMP IM PRN (06:04)
[2024-08-18] MEDS ORDERED: LIDOCAINE 0.5% (PF) 5 MG/ML (50 ML SDV) SQ PRN (06:04)
[2024-08-18] MEDS ORDERED: OXYTOCIN 10 UNIT/ML 1 ML VIAL IM PRN (06:04)
[2024-08-18] MEDS ORDERED: miSOPROStoL 200 MCG TAB PO PRN (06:04)
[2024-08-18] MEDS ORDERED: CARBOPROST TROMETHAMINE 250 MCG/ML 1 ML AMP IM PRN (06:04)
[2024-08-18] MEDS ORDERED: miSOPROStoL 200 MCG TAB RECTAL PRN (06:04)
[2024-08-18] MEDS ORDERED: OXYTOCIN 30 UNITS/500 ML NS 30 UNIT in SALINE 1 500ML.BAG IV SCH (06:15)
[2024-08-18] MEDS: LACTATED RINGERS 1,000 ML IV SCH (06:15)
[2024-08-18] MEDS: OXYTOCIN 30 UNITS/500 ML NS 30 UNIT in SALINE 1 500ML.BAG IV SCH (06:43)
[2024-08-18 06:54] LABS: Basophils # (A) 0.01 10*3/uL (0.00-0.10); Basophils % (A) 0.1 %; Eosinophils # (A) 0.07 10*3/uL (0.04-0.35); HCT 30.8 % (37.2-46.3); HGB 9.5 g/dL (12.0-15.0); Lymphocytes # (A) 1.58 10*3/uL (0.90-5.00); Lymphocytes % (A) 22.7 %; MCH 25.5 pg (27.0-32.0); MCHC 30.8 g/dL (32.0-37.0); Mean Platelet Volume 9.6 fL (9.5-12.2); Monocytes # (A) 0.61 10*3/uL (0.20-1.00); Monocytes % (A) 8.8 %; Neutrophils # (A) 4.63 10*3/uL (1.80-7.70); Neutrophils % (A) 66.5 %; Platelet Count 205 10*3/uL (140-440); RBC 3.73 10*6/uL (4.10-5.20); WBC 6.96 10*3/uL (4.50-10.00)
[2024-08-18 07:15] LABS: RDW 30.4 % (11.5-14.5)
[2024-08-18 07:16] LABS: MCV 82.6 fL (80.0-97.0)
[2024-08-18] MEDS ORDERED: fentaNYL (PF) 50 MCG/ML 5 ML AMP ONE (10:26)
[2024-08-18] MEDS ORDERED: SODIUM CHLORIDE 0.9% 250 ML BAG ONE (10:26)
[2024-08-18] MEDS ORDERED: ROPIVACAINE 5 MG/ML 30 ML VIAL ONE (10:26)
[2024-08-18] MEDS ORDERED: diphenhydrAMINE 50 MG/ML 1 ML VIAL IVP PRN ×2 (14:16)
[2024-08-18] MEDS ORDERED: SIMETHICONE 80 MG CHEWABLE PO PRN (14:16)
[2024-08-18] MEDS ORDERED: diphenhydrAMINE 25 MG CAP PO PRN (14:16)
[2024-08-18] MEDS ORDERED: diphenhydrAMINE 50 MG CAP PO PRN (14:16)
[2024-08-18] MEDS ORDERED: HYDROCORTISONE 2.5% RECTAL CREAM 30 GM TUBE RECTAL PRN (14:16)
[2024-08-18] MEDS ORDERED: LANOLIN CREAM 1 GM TUBE TOPICAL PRN (14:16)
[2024-08-18] MEDS ORDERED: ZOLPIDEM 5 MG TAB PO PRN (14:16)
[2024-08-18] MEDS ORDERED: BENZOCAINE/MENTHOL SPRAY 1 GM/SPRAY AEROSOL TOPICAL PRN (14:16)
--- NOTE | 2024-08-18 14:20 | P.PROBDLV ---
Vaginal Delivery Note - . Vaginal Delivery Note: Date of service 08/18/2024 Findings: Viable female infant delivered at 1406, weight is pending. 28-year-old 4 para 2-0-1-2 at 39 3/7 weeks of that presents for induction of labor. Patient has been receiving routine care that has been complicated by diagnosis of hepatitis C. Patient states she has had a long standing history of hepatitis C. Patient was admitted and Pitocin induction of labor was begun. Amniotomy was performed clear fluid was obtained. Patient progressed to complete began pushing and had a normal spontaneous vaginal delivery of a viable female at 1406, weight is pending. After 2- minute delay umbilical cord is doubly clamped and cut. Spontaneous cry was noted at . Placenta was delivered spontaneously intact with three-vessel cord being noted. On inspection the patient's vaginal vault no lacerations were appreciated. Uterus is noted be firm below the umbilicus. Just prior to pushing the bladder was drained of clear yellow urine. All counts were to be correct x 2. Patient and tolerated delivery well and are resting comfortably
[2024-08-18] MEDS: IBUPROFEN 800 MG TAB PO SCH (16:04)
[2024-08-18] MEDS: ACETAMINOPHEN TAB 500 MG TAB PO SCH (16:26)
[2024-08-18] MEDS: SENNOSIDES-DOCUSATE SODIUM 1 EACH TAB PO SCH (19:37)
[2024-08-19 06:42] LABS: Basophils # (A) 0.03 10*3/uL (0.00-0.10); Basophils % (A) 0.3 %; Eosinophils # (A) 0.09 10*3/uL (0.04-0.35); Eosinophils % (A) 0.8 %; HCT 30.1 % (37.2-46.3); HGB 9.3 g/dL (12.0-15.0); Lymphocytes # (A) 1.86 10*3/uL (0.90-5.00); Lymphocytes % (A) 16.6 %; MCH 25.5 pg (27.0-32.0); MCHC 30.9 g/dL (32.0-37.0); MCV 82.7 fL (80.0-97.0); Mean Platelet Volume 9.2 fL (9.5-12.2); Monocytes # (A) 0.77 10*3/uL (0.20-1.00); Monocytes % (A) 6.9 %; Neutrophils # (A) 8.44 10*3/uL (1.80-7.70); Platelet Count 166 10*3/uL (140-440); RBC 3.64 10*6/uL (4.10-5.20); WBC 11.23 10*3/uL (4.50-10.00)
[2024-08-19 06:58] LABS: RDW 30.7 % (11.5-14.5)
[2024-08-19 07:54] LABS: Anisocytosis (M) Present; Hypochromasia (M) Present; Poikilocytosis (M) Present
[2024-08-19 08:02] VITALS: BP 118/75; PULSE 66; RESP 16; TEMP 98.1
[2024-08-19] MEDS ORDERED: PRENATAL VIT-IRON-FOLIC ACID 1 EACH TABLET PO SCH (09:00)
--- NOTE | 2024-08-19 09:11 | P.DS ---
Providers Date of admission: 08/18/24 05:55 Expected date of discharge: 08/19/24 Attending physician: Kaylie Garcia Primary care physician: Stated None Hospital Course: Patient is a 28-year-old admitted at 393/7 weeks for induction of labor. She received routine care complicated by longstanding history of hepatitis C. Induction was initiated with Pitocin. The patient progressed to active labor and had a spontaneous vaginal delivery of a healthy female at 1406 with Apgars 9 and 9 and a birthweight of 3725 g. Placenta was delivered intact with three-vessel cord. period was uncomplicated. Patient was ambulatory, tolerating oral intake, and spontaneously voiding. Uterus involution appropriate and lochia light. She is without difficulty. Pain has been controlled with Tylenol and ibuprofen. has remained stable and planned to be discharged with the patient. Physical examination: Vital signs reviewed General: Nontoxic, no distress, appears stated age, well-appearing Lungs: Symmetric chest wall expansion, nonlabored breathing on room air Extremities: Normal, symmetric movement Abdomen: Soft, non-tender Uterus: Normal, firm, below umbilicus; minimal lochia Patient Condition at Discharge: Good Plan - Discharge Summary New Discharge Prescriptions: No Action Omeprazole 20 mg PO DAILY Ptd-Jzbc-Wkzhw Acid [-U Capsule (formulary)] 1 cap PO DAILY Discharge Medication List Omeprazole 20 mg PO DAILY 04/15/22 [History] Ufx-Crhi-Duvem Acid [-U Capsule (formulary)] 1 cap PO DAILY 07/13/24 [History] Follow up Appointment(s)/Referral(s): Kaylie Garcia DO [Doctor of Osteopathic Medicine] - 09/29/24 1:00 pm Patient Instructions/Handouts: Vaginal Delivery (DC) Activity/Diet/Wound Care/Special Instructions: Please avoid intercourse, tub bathing, and swimming in pools/lakes/hot tubs for the next 6 weeks. routine PP check in 6 weeks should you have any concerns prior to your PP check please call and be seen prior. Your pain can be treated with ibuprofen. You can take up to 400-600 mg of ibuprofen (Advil, Motrin) 3 times daily (every 8 hours) but can also use lower doses if this relieves your pain. Do not combine either with ketorolac ([place] l), meloxicam (Mobic), or indomethacin (Tivorbex). Some people can develop stomach discomfort with higher doses of ibuprofen, if this develops decrease your dose or stop taking it. Please take these medications with food. Discharge Disposition: HOME SELF-CARE
--- NOTE | 2024-08-19 10:50 | P.PNOBGVD ---
Subjective - Subjective Principal diagnosis: PPD 1 Interval history: patient is doing well PP, she is ambulating and voiding without difficulty, lochia is minimal BF is going well she denies concerns and states she is ready for discharge home later today Patient reports: Reports appetite normal, Reports voiding normally, Reports pain well controlled, Reports ambulating normally [place]: doing well, nursing well Objective - Latest Vital Signs Latest vital signs: Vital Signs Temp Pulse Resp BP Pulse Ox 08/19/24 08:00 98.1 F 66 16 118/75 08/19/24 00:00 97.8 F 81 17 105/65 98 08/18/24 21:00 98.0 F 80 15 112/65 08/18/24 16:15 98.0 F 90 16 124/69 98 08/18/24 16:00 85 15 127/65 08/18/24 15:45 86 15 119/64 08/18/24 15:30 94 14 115/58 08/18/24 15:15 88 14 116/59 08/18/24 15:00 96 14 129/61 98 08/18/24 14:45 80 16 117/58 99 08/18/24 14:30 83 15 115/58 99 08/18/24 14:15 98.2 F 90 14 129/61 98 Intake and Output 08/18/24 08/19/24 08/19/24 22:59 06:59 14:59 Intake Total 720 Output Total 498 Balance 222 Intake: Oral 720 Output: Output, Quantitative 498 Blood Loss Other: # Voids 1 2 1 - Exam Extremities: Present: normal, edema Abdomen: Present: normal appearance, soft Uterus: Present: normal, firm - Labs Labs: Abnormal Lab Results - Last 24 Hours (Table) 08/19/24 Range/Units 06:26 WBC 11.23 H (4.50-10.00) 10*3/uL RBC 3.64 L (4.10-5.20) 10*6/uL Hgb 9.3 L (12.0-15.0) g/dL Hct 30.1 L (37.2-46.3) % MCH 25.5 L (27.0-32.0) pg MCHC 30.9 L (32.0-37.0) g/dL RDW 30.7 H (11.5-14.5) % MPV 9.2 L (9.5-12.2) fL Neutrophils # 8.44 H (1.80-7.70) 10*3/uL Assessment and Plan (1) Status post normal vaginal delivery Current Visit: Yes Status: Acute Code(s): RBX5749 - SNOMED Code(s): 727255630 (2) Term Current Visit: Yes Status: Acute Code(s): Z34.90 - ENCNTR FOR SUPRVSN OF NORMAL , UNSP, UNSP TRIMESTER SNOMED Code(s): 88808787 (3) Hepatitis C Current Visit: No Status: Chronic Code(s): B19.20 - UNSPECIFIED VIRAL HEPATITIS C WITHOUT HEPATIC COMA SNOMED Code(s): 16593479 Plan: doing well PP, plan discharge home at 24 hours FU in 6 weeks for routine PP appointment OTC ibuprofen 600mg or 3 tabs q 6 hours as needed for pain.
--- NOTE | 2024-08-19 10:53 | P.HPOB ---
History of Present Illness H&P Date: 08/18/24 Chief Complaint: IUP at 39 weeks 28-year-old 4 para 2-0-1-2 at 39 weeks that presents for induction of labor. Patient has been receiving routine care which has been complicated by a diagnosis of hep C. she has had this dx for about 10 years . Patient notes good movement denies contractions vaginal bleeding or loss of fluid. on blood work she has a blood type of O positive, rubella immune, Hep B Sag negative, HIV neg, HCV pos Review of Systems Constitutional: Denies chills, Denies fatigue, Denies fever Ears, nose, mouth and throat: Denies headache Cardiovascular: Reports leg edema Respiratory: Denies dyspnea Gastrointestinal: Denies constipation, Denies diarrhea, Denies nausea, Denies v omiting Genitourinary: Reports Past Medical History Past Medical History: Blood Disorder Additional Past Medical History / Comment(s): Obstetric history: First 2 pregnancies were spontaneous abortions. Third was a vaginal delivery. This is her fourth and she had care with me since the first trimester. Blood type is O+, antibodies negative, RPR nonreactive, hepatitis B- , GBS positive, rubella immune. She did see [facility] for her history of hepatitis C. IRON DEFICIENCY ANEMIA History of Any Multi-Drug Resistant Organisms: None Reported Past Surgical History: No Surgical Hx Reported Additional Past Surgical History / Comment(s): retained Nexplanon removed from Left upper arm Past Anesthesia/Blood Transfusion Reactions: No Reported Reaction Smoking Status: Never smoker - Past Family History Mother Family Medical History: No Reported History Medications and Allergies Home Medications Medication Instructions Recorded Confirmed Type Omeprazole 20 mg PO DAILY 04/15/22 08/18/24 History Dar-Lnsd-Yxhub Acid 1 cap PO DAILY 07/13/24 08/18/24 History [-U Capsule (formulary)] Allergies Allergy/AdvReac Type Severity Reaction Status Date / Time No Known Allergies Allergy Verified 08/18/24 06:01 Exam Osteopathic Statement: *. No significant issues noted on an osteopathic structural exam other than those noted in the History and Physical/Consult. Intake and Output 08/17/24 08/17/24 08/18/24 14:59 22:59 06:59 Other: Weight 81.647 kg Targeted physical exam is done on this date in general this is a well-nourished well-developed female in no acute distress, breathing is nonlabored, heart has a regular rate and rhythm, abdomen is gravid, on cervical exam she is 3/80/-2 station amniotomy is performed and clear fluid was obtained. heart tones were noted to be category 1 and she is severiano irregularly. Results Result Diagrams: 08/19/24 06:26 Assessment and Plan (1) Term Current Visit: Yes Status: Acute Code(s): Z34.90 - ENCNTR FOR SUPRVSN OF NORMAL , UNSP, UNSP TRIMESTER SNOMED Code(s): 14747391 Plan: Admit to labor and delivery Pitocin induction of labor per hospital protocol Clear liquids as tolerated Patient does desire epidural when appropriate Anticipate spontaneous vaginal delivery
== END 2024-08-19 15:43 | disposition home or self-care (01) | DRG 560 ==
LOC: 4FBP 05:55
PROVIDERS: ADMIT Obstetrics & Gynecology Obstetrics; ATTEND Obstetrics & Gynecology Obstetrics
PROC: 3E033VJ Introduction of Other Hormone into Peripheral Vein, Percutaneous Approach (ICD-10-PCS; principal; 2024-08-18)
PROC: 10E0XZZ Delivery of Products of Conception, External Approach (ICD-10-PCS; principal; 2024-08-18)
PROC: 10907ZC Drainage of Amniotic Fluid, Therapeutic from Products of Conception, Via Natural or Artificial Opening (ICD-10-PCS; principal; 2024-08-18)
DX: O98.42 Viral hepatitis complicating childbirth (principal); B19.20 Unspecified viral hepatitis C without hepatic coma; Z37.0 Single live birth; Z3A.39 39 weeks gestation of pregnancy; Z28.310 Unvaccinated for COVID-19; Z28.21 Immunization not carried out because of patient refusal
CPT/HCPCS: 85025; 86850; 86900; 86901

== ENCOUNTER 2024-09-28 10:40 | Emergency (ER) | payer OTHER ==
--- NOTE | 2024-09-28 10:55 | ED ---
Skin/Abscess/FB HPI - General Chief complaint: Skin/Abscess/Foreign Body Stated complaint: Breast infection Time Seen by Provider: 09/28/24 10:42 Source: patient, RN notes reviewed Mode of arrival: ambulatory Limitations: no limitations - History of Present Illness Initial comments: This is a 28 year old female who presents to the emergency department for a left breast infection. Patient is a few months . She has been dealing with left-sided mastitis for a couple of weeks. She had first gone to urgent care and was put on Keflex for 3 days. However, she was not improving and her [employer] F[employer]RICATOR switched her to dicloxacillin. She finished this 2 days ago. She initially felt like it was doing better, but states that it then returned. She does feel like it moved lower down in the breast. She initially had systemic symptoms and felt very ill from it, however states that those symptoms have since resolved. Denies any fevers or chills. She is still breast-feeding. - Related Data Home Medications Medication Instructions Recorded Confirmed Omeprazole 20 mg PO DAILY 04/15/22 08/18/24 Byv-Upym-Nljsc Acid 1 cap PO DAILY 07/13/24 08/18/24 [-U Capsule (formulary)] Previous Rx's Medication Instructions Recorded Ibuprofen [Motrin] 800 mg PO Q8H PRN #30 tab 09/28/24 clindamycin HCL 300 mg PO Q6H 10 Days #40 capsule 09/28/24 Allergies Allergy/AdvReac Type Severity Reaction Status Date / Time No Known Allergies Allergy Verified 09/28/24 10:43 Review of Systems ROS Statement: Those systems with pertinent positive or pertinent negative responses have been documented in the HPI. ROS Other: All systems not noted in ROS Statement are negative. Past Medical History Past Medical History: Blood Disorder Additional Past Medical History / Comment(s): Obstetric history: First 2 pregnancies were spontaneous abortions. Third was a vaginal delivery. This is her fourth and she had care with me since the first trimester. Blood type is O+, antibodies negative, RPR nonreactive, hepatitis B- , GBS positive, rubella immune. She did see [facility] for her history of hepatitis C. IRON DEFICIENCY ANEMIA History of Any Multi-Drug Resistant Organisms: None Reported Past Surgical History: No Surgical Hx Reported Additional Past Surgical History / Comment(s): retained Nexplanon removed from Left upper arm Past Anesthesia/Blood Transfusion Reactions: No Reported Reaction Past Psychological History: No Psychological Hx Reported Smoking Status: Never smoker Past Alcohol Use History: None Reported Past Drug Use History: None Reported - Past Family History Mother Family Medical History: No Reported History General Exam Limitations: no limitations General appearance: alert, in no apparent distress Head exam: Present: atraumatic, normocephalic, normal inspection Respiratory exam: Present: normal lung sounds bilaterally. Absent: respiratory distress, wheezes, rales, rhonchi, stridor Cardiovascular Exam: Present: regular rate, normal rhythm Neurological exam: Present: alert, oriented X3, CN II-XII intact Psychiatric exam: Present: normal affect, normal mood Skin exam: Present: other (Erythematous palpable lump in the left breast) Course Vital Signs 09/28/24 09/28/24 09/28/24 10:40 11:03 14:11 Temperature 97.8 F 98.8 F Pulse Rate 69 66 65 Respiratory 16 16 18 Rate Blood Pressure 141/93 128/88 146/95 O2 Sat by Pulse 99 100 99 Oximetry Procedures - Incision & Drainage Consent Obtained: verbal consent Indication: Abscess/Cyst Site: other (Left breast) Size (cm): 3 Anesthetic Used: lidocaine 1%, with epi Amount (mLs): 4 I&D Cleaning Method: Alcohol Wipe Sterile Field Used?: Yes Scalpel Used: #11 I&D Drainage Obtained: Blood, Serous Medical Decision Making - Medical Decision Making This is a 28-year-old female who presents to the emergency department for concerns of a left breast infection. Was pt. sent in by a medical professional or institution? @ -No Did you speak to anyone other than the patient for history? @ -No Did you review nursing and triage notes? @ -Yes, and I agree, it is accurate with regards to the patient's symptoms. Were old charts reviewed? @ -No Differential Diagnosis? @ -Mastitis, breast abscess, cellulitis, malignancy, this is not meant to be an all-inclusive list. EKG interpreted by me (3pts min.)? @ -Not obtained X-rays interpreted by me (1pt min.)? @ -Not obtained CT interpreted by me (1pt min.)? @ -Not obtained U/S interpreted by me (1pt. min.)? @ -Ultrasound of the left breast obtained. My interpretation identifies a fluid collection. What testing was considered but not performed? (CT, X-rays, U/S, labs)? Why? @ -None What meds were considered but not given? Why? @ -None Did you discuss the management of the patient with other professionals? @ -No Did you reconcile home meds? @ -No Was smoking cessation discussed for >3mins.? @ -No Was critical care preformed (if so, how long)? @ -No Were there social determinants of health that impacted care today? How? (Homelessness, low income, unemployed, alcoholism, drug addiction, transportation, low edu. Level, literacy, decrease access to med. care, snf, rehab)? @ -No Was there de-escalation of care discussed even if they declined? (Discuss DNR or withdrawal of care, Hospice)? @ -No What co-morbidities impacted this encounter? (DM, HTN, Smoking, COPD, CAD, Cancer, CVA, Hep., AIDS, mental health diagnosis, sleep apnea, morbid obesity)? @ -None Was patient admitted / discharged? @ -Discharged. Lab work demonstrates a mildly elevated CRP of 1.8 and is oth erwise unremarkable. Elevated LFTs are similar when compared with prior. Ultrasound of the left breast obtained demonstrating 2 fluid collections as well as thickened cortex lymph nodes compatible with reactive change. Incision and drainage performed and a decent amount of sanguinous and serosanguineous fluid was expressed. The firm palpable area did then decrease in size. Advised the patient continue with warm compresses. She does have a follow-up appointment with her [employer] tomorrow for reevaluation. Information for follow-up with breast surgery was also provided and she is also advised to contact them for a follow-up appointment. Clindamycin prescribed to see if that effectively treats the infection. Ibuprofen prescribed as well for further management of any discomfort. Advised taking this with Tylenol. Patient discharged home in stable condition. Case discussed with ED attending Dr. Roberts. Return precautions reviewed in depth, the patient is instructed to return to the emergency department with any new, worsening, or concerning symptoms. Patient verbalized understanding. Undiagnosed new problem with uncertain prognosis? @ -None Drug Therapy requiring intensive monitoring for toxicity (Heparin, Nitro, Insulin, Cardizem)? @ -None Were any procedures done? @ -Incision and drainage Diagnosis/symptom? @ -Left mastitis Acute, or Chronic, or Acute on Chronic? @ -Acute Uncomplicated (without systemic symptoms) or Complicated (systemic symptoms)? @ -Uncomplicated Side effects of treatment? @ -None Exacerbation, Progression, or Severe Exacerbation] @ -Not applicable Poses a threat to life or bodily function? @ -No - Lab Data Result diagrams: 09/28/24 11:13 09/28/24 11:13 Lab Results 09/28/24 09/28/24 09/28/24 Range/Units 11:13 11:13 11:15 WBC 9.23 (4.50-10.00) 10*3/uL RBC 3.91 L (4.10-5.20) 10*6/uL Hgb 11.3 L (12.0-15.0) g/dL Hct 34.0 L (37.2-46.3) % MCV 87.0 (80.0-97.0) fL MCH 28.9 (27.0-32.0) pg MCHC 33.2 (32.0-37.0) g/dL Plt Count 233 (140-440) 10*3/uL MPV 8.6 L (9.5-12.2) fL Immature Gran % (Auto) 0.3 % Neutrophils % 71.8 % Lymphocytes % 19.2 % Monocytes % 6.8 % Eosinophils % 1.6 % Basophils % 0.3 % Immature Gran # 0.03 (0.00-0.04) 10*3/uL Neutrophils # 6.62 (1.80-7.70) 10*3/uL Lymphocytes # 1.77 (0.90-5.00) 10*3/uL Monocytes # 0.63 (0.20-1.00) 10*3/uL Eosinophils # 0.15 (0.04-0.35) 10*3/uL Basophils # 0.03 (0.00-0.10) 10*3/uL Sodium 141 (137-145) mmol/L Potassium 3.9 (3.5-5.1) mmol/L Chloride 104 (98-107) mmol/L Carbon Dioxide 25 (22-30) mmol/L Anion Gap 12 mmol/L BUN 21 H (7-17) mg/dL Creatinine 0.47 L (0.52-1.04) mg/dL Est GFR (CKD-EPI)AfAm >90 (>60 ml/min/1.73 sqM) Est GFR (CKD-EPI)NonAf >90 (>60 ml/min/1.73 sqM) Glucose 104 H (74-99) mg/dL Plasma Lactic Acid Nixon 0.9 (0.7-2.0) mmol/L Calcium 9.4 (8.4-10.2) mg/dL Total Bilirubin 0.3 (0.2-1.3) mg/dL AST 65 H (14-36) U/L ALT 138 H (4-34) U/L Alkaline Phosphatase 186 H (38-126) U/L C-Reactive Protein 1.8 H (<1.0) mg/dL Total Protein 6.9 (6.3-8.2) g/dL Albumin 4.1 (3.5-5.0) g/dL - Radiology Data Radiology results: report reviewed, image reviewed Disposition Clinical Impression: Mastitis, left, acute Disposition: HOME SELF-CARE Instructions (If sedation given, give patient instructions): Mastitis (ED) Additional Instructions: Return to the emergency department with any new, worsening, or concerning symptoms. Take the clindamycin as prescribed for 10 days. Continue to apply warm compresses. Alternate with ibuprofen and Tylenol as needed for discomfort. Follow-up with your [employer] as scheduled tomorrow. You can also reach out to the breast specialist listed below for a follow-up appointment. Prescriptions: clindamycin HCL 300 mg PO Q6H 10 Days #40 capsule Ibuprofen [Motrin] 800 mg PO Q8H PRN #30 tab PRN Reason: Pain Is patient prescribed a controlled substance at d/c from ED?: No Referrals: None,Stated [Primary Care Provider] - 1-2 days Sosa Poon MD [STAFF PHYSICIAN] - 1-2 days Time of Disposition: 14:02
[2024-09-28 11:06] VITALS: TEMP 98.8
[2024-09-28 11:33] LABS: Basophils # (A) 0.03 10*3/uL (0.00-0.10); Basophils % (A) 0.3 %; Eosinophils # (A) 0.15 10*3/uL (0.04-0.35); Eosinophils % (A) 1.6 %; HCT 34.0 % (37.2-46.3); HGB 11.3 g/dL (12.0-15.0); Lymphocytes # (A) 1.77 10*3/uL (0.90-5.00); Lymphocytes % (A) 19.2 %; MCH 28.9 pg (27.0-32.0); MCHC 33.2 g/dL (32.0-37.0); MCV 87.0 fL (80.0-97.0); Monocytes # (A) 0.63 10*3/uL (0.20-1.00); Monocytes % (A) 6.8 %; Neutrophils # (A) 6.62 10*3/uL (1.80-7.70); Neutrophils % (A) 71.8 %; Platelet Count 233 10*3/uL (140-440); RBC 3.91 10*6/uL (4.10-5.20); RDW 20.1 % (11.5-14.5); WBC 9.23 10*3/uL (4.50-10.00)
[2024-09-28] MEDS: ACETAMINOPHEN TAB 500 MG TAB PO STA (11:42)
[2024-09-28 11:46] LABS: ALT 138 U/L (4-34); AST 65 U/L (14-36); African American GFR (CKD) >90 (>60 ml/min/1.73 sqM); Albumin 4.1 g/dL (3.5-5.0); Alkaline Phosphatase 186 U/L (38-126); Anion Gap 12 mmol/L; Blood Urea Nitrogen 21 mg/dL (7-17); Calcium 9.4 mg/dL (8.4-10.2); Carbon Dioxide 25 mmol/L (22-30); Chloride 104 mmol/L (98-107); Glucose 104 mg/dL (74-99); Non-African American GFR(CKD) >90 (>60 ml/min/1.73 sqM); Potassium 3.9 mmol/L (3.5-5.1); Sodium 141 mmol/L (137-145); Total Protein 6.9 g/dL (6.3-8.2)
--- NOTE | 2024-09-28 13:16 | USB ---
Reason for Exam: Clinical finding. Technique: Method: Targeted. Findings: The area of palpable concern of the left breast, the axilla of the left breast and the retroareolar of the left breast were scanned. Technique utilized:US breast limited LT Image; Ultrasound imaging of: All 4 quadrants, the retroareolar region and axilla. Arising fluid collection at 9:00 11 cm from the nipple measuring up to 3.9 x 1.7 x 2.6 cm. Additional fluid collection at 4:00 2 cm from nipple measuring 3.5 x 2.2 x 3.1 cm. Thickened cortex lymph nodes compatible with reactive change. Overall Assessment: Benign, BI-RAD 2 Management: Screening Mammogram of both breasts at age 40. A clinical breast exam by your physician is recommended on an annual basis and results should be correlated with mammographic findings. This exam should not preclude additional follow-up of suspicious palpable abnormalities. Results were given to the patient verbally at the time of exam. [facility], , 09/28/2024 1:13 PM. Electronically signed and approved by: Chan Fernandez DO
[2024-09-28] MEDS: LIDOCAINE 1%-EPI 1:100,000 20 ML VIAL SQ STA (13:30)
[2024-09-28 14:12] VITALS: BP 146/95; PULSE 65; RESP 18
== END 2024-09-28 14:12 | disposition home or self-care (01) ==
LOC: EC 10:40
DX: N61.0 Mastitis without abscess (principal)
CPT/HCPCS: 10060; 36415; 80053; 83605; 85025; 86140; 99284

== ENCOUNTER 2024-10-05 09:20 | Emergency (ER) | payer OTHER ==
[2024-10-05 09:32] VITALS: TEMP 98
--- NOTE | 2024-10-05 10:20 | ED ---
General Adult HPI - General Chief complaint: Skin/Abscess/Foreign Body Stated complaint: Infection in left breast Time Seen by Provider: 10/05/24 09:30 Source: patient Mode of arrival: ambulatory Limitations: no limitations - History of Present Illness Initial comments: Dictation was produced using [employer] dictation software. please excuse any grammatical, word or spelling errors. Chief Complaint: 28-year-old female presents with persistent breast tenderness History of Present Illness: Patient is 28-year-old female was recently seen in the emergency department 7 days ago for the same issue. Patient had tenderness to her left breast was identified as an abscess. She had completed 2 rounds of antibiotics. She states that her symptoms have been waxing and waning. Denies any constitutional symptoms. She had a recent ultrasound of the breast that showed fluid collection The ROS documented in this emergency department record has been reviewed and confirmed by me. Those systems with pertinent positive or negative responses have been documented in the HPI. All other systems are other negative and/or noncontributory. - Related Data Home Medications Medication Instructions Recorded Confirmed Omeprazole 20 mg PO DAILY 04/15/22 10/05/24 Allergies Allergy/AdvReac Type Severity Reaction Status Date / Time No Known Allergies Allergy Verified 10/05/24 11:04 Review of Systems ROS Statement: Those systems with pertinent positive or pertinent negative responses have been documented in the HPI. ROS Other: All systems not noted in ROS Statement are negative. Past Medical History Past Medical History: Blood Disorder Additional Past Medical History / Comment(s): Obstetric history: First 2 pregnancies were spontaneous abortions. Third was a vaginal delivery. This is her fourth and she had care with me since the first trimester. Blood type is O+, antibodies negative, RPR nonreactive, hepatitis B- , GBS positive, rubella immune. She did see [facility] for her history of hepatitis C. IRON DEFICIENCY ANEMIA History of Any Multi-Drug Resistant Organisms: None Reported Past Surgical History: No Surgical Hx Reported Additional Past Surgical History / Comment(s): retained Nexplanon removed from Left upper arm Past Anesthesia/Blood Transfusion Reactions: No Reported Reaction Past Psychological History: No Psychological Hx Reported Smoking Status: Never smoker Past Alcohol Use History: None Reported Past Drug Use History: None Reported - Past Family History Mother Family Medical History: No Reported History General Exam - General Exam Comments Initial Comments: General: Well-appearing, nontoxic, no acute distress. Head: Normocephalic, atraumatic Eyes: PERRLA, EOMI ENT: Airway patent Chest: Nonlabored breathing Skin: No visual rash, normal skin tone Neuro: Alert and oriented 3 Musculoskeletal: No gross abnormalities Left breast: 3 x 2 cm palpable mass in the left breast at the 10 o'clock position Limitations: no limitations Course Vital Signs 10/05/24 09:29 Temperature 98 F Pulse Rate 77 Respiratory 20 Rate Blood Pressure 142/92 O2 Sat by Pulse 99 Oximetry Medical Decision Making - Medical Decision Making Was pt. sent in by a medical professional or institution (, PA, EXTENSION ASSOCIATE, urgent care, hospital, or shelter...) When possible be specific @ -No Did you speak to anyone other than the patient for history (EMS, parent, family, police, friend...)? What history was obtained from this source @ -No Did you review nursing and triage notes (agree or disagree)? Why? @ -I reviewed and agree with nursing and triage notes Were old charts reviewed (outside hosp., previous admission, EMS record, old EKG, old radiological studies, urgent care reports/EKG's, shelter records)? Report findings @ -No old charts were reviewed Differential Diagnosis (chest pain, altered mental status, abdominal pain women, abdominal pain men, vaginal bleeding, musculoskeletal, weakness, fever, dyspnea, syncope, headache, dizziness, GI bleed, back pain, seizure, CVA, palpatations, mental health)? @ -Breast abscess, breast cyst, breast cellulitis EKG interpreted by me (3pts min.). @ -None done X-rays interpreted by me (1pt min.). @ -None done CT interpreted by me (1pt min.). @ -None done U/S interpreted by me (1pt. min.). @ -None done What testing was considered but not performed or refused? (CT, X-rays, U/S, labs)? Why? @ -None What meds were considered but not given or refused? Why? @ -None Was smoking cessation discussed for >3mins.? @ -No Were there social determinants of health that impacted care today? How? (Homelessness, low income, unemployed, alcoholism, drug addiction, transporta tion, low edu. Level, literacy, decrease access to med. care, snf, rehab)? @ -No Was there de-escalation of care discussed even if they declined (Discuss DNR or withdrawal of care, Hospice)? DNR status @ -No What co-morbidities impacted this encounter? (DM, HTN, Smoking, COPD, CAD, Cancer, CVA, ARF, Chemo, Hep., AIDS, mental health diagnosis, sleep apnea, morbid obesity)? @ -None Was patient admitted / discharged? Hospital course, mention meds given and route, prescriptions, significant lab abnormalities, going to OR and other pertinent info. @ -28-year-old female presents with breast nodule. Was seen here 1 week ago for needle aspiration of serous fluid. She had completed 2 or 3 courses of antibiotic treatment with no resolution of her symptoms. Case discussed with Dr. Vang who recommends that patient be seen by respect to this. Spoke with Dr. Urban Dunn who will see patient in the office on or Saturday. Patient is agreeable with this plan. Did you discuss the management of the patient with other professionals (professionals i.e. , PA, EXTENSION ASSOCIATE, lab, RT, psych nurse, social work assistant, central station operator, teacher, disciplinary hearing officer, trimming caser)? Give summary @ -See above Was critical care preformed (if so, how long)? @ -No Undiagnosed new problem with uncertain prognosis? @ -No Drug Therapy requiring intensive monitoring for toxicity (Heparin, Nitro, Insulin, Cardizem)? @ -No Were any procedures done? @ -No Diagnosis/symptom? Acute, or Chronic, or Acute on Chronic? Uncomplicated (without systemic symptoms) or Complicated (systemic symptoms)? @ -Breast mass Side effects of treatment? @ -No Exacerbation, Progression, or Severe Exacerbation? @ -No Poses a threat to life or bodily function? How? (Chest pain, USA, MS, pneumonia, PE, COPD, DKA, ARF, appy, cholecystitis, CVA, Diverticulitis, Homicidal, Suicidal, threat to staff... and all critical care pts) @ -yes Disposition Clinical Impression: Breast mass Disposition: HOME SELF-CARE Condition: Fair Instructions (If sedation given, give patient instructions): Cyst (ED) Additional Instructions: Call Dr. Poon's office at [phone] ext [phone]. speak to mago/alfredo to schedule appointment for or saturday Is patient prescribed a controlled substance at d/c from ED?: No Referrals: Sosa Poon MD [STAFF PHYSICIAN] - 1-2 days Time of Disposition: 11:25
[2024-10-05 11:59] VITALS: BP 137/94; PULSE 68; RESP 16
== END 2024-10-05 11:58 | disposition home or self-care (01) ==
LOC: EC 09:20
DX: N63.0 Unspecified lump in unspecified breast (principal)
CPT/HCPCS: 99282

== ENCOUNTER → 2024-10-09 | Outpatient (CLI) | payer OTHER ==
[2024-10-09 08:36] VITALS: BP 144/101; PULSE 107; RESP 17; TEMP 98
--- NOTE | 2024-10-09 09:11 | P.GSCN ---
History of Present Illness Consult date: 10/09/24 Reason for Consult: Fluid collection left breast Requesting physician: Kaylie Garcia History of present illness: Berna is a 28 year old female who presented to the emergency room with a complaint of a palpable area of concern in the left breast. This originally started when she was breast-feeding fopr one months. She noted some erythema and firmness in the area of the left breast and was seen at urgent care. At that time she was put on Keflex and after a course of Keflex it was not working and she was put on doxycycline. It started to go away on the doxycycline however when the antibiotics were completed it came back and that is why she went to the emergency room. Her first visit to the emergency room was on 09-28-2024 at which time an ultrasound was performed revealing 2 areas of fluid collection the first was at 9:00 showing a 3.9 x 1.7 x 2.6 cm fluid collection in the second at 4:00 2 cm from the nipple measuring 3.5 x 2.2 x 3.1 cm. A thickened cortex lymph node was compatible with reactive change. At that time in the emergency room the lesion was lanced and at that time clear fluid with some blood was noted. At that time she was put on clindamycin for 10 days, after the 7th day it was more painful. The patient then returned to the emergency room on 10-05-2024, and at that time she was given an appointment to come and see us. She is not taking any antibiotics at this time. She has not had any fever or chills. She stopped breast-feeding. She is still having some bilateral milky nipple discharge. The lump is still present and painful. She is uncertain if cultures were done. It is not draining now. It is a painful lump. It has not gotten larger. She has not had any surgery on her breast besides the lancing Caffeine: red bull twice a week nicotine: none chocolate: none hormones: none Family History: no cancer Hormonal History: menarche: 14 [id number], most recent delivery 2 months, age at first 24, breast fed: yes no trouble with the others has not started having periods again since delivery Surgical history: Retained Nexplanon removed from left upper arm D&C Medical History: hepatitis C IV drug used in the remote past Social History: nicotine: none alcohol: stopped 5 years ago; used to drink on weekends drugs: in the past used IV drugs, stopped 7 years ago Review of Systems - Constitutional Reports sweats, Denies fever, Denies weight loss - EENT Eyes: denies blurred vision Ears: deny: decreased hearing, tinnitus Ears, nose, mouth and throat: Denies dysphagia - Breasts bilateral: as per HPI - Cardiovascular Denies chest pain, Denies shortness of breath - Gastrointestinal Reports as per HPI - Genitourinary Genitourinary: Denies dysuria, Denies hematuria Menstruation: Reports as per HPI - Musculoskeletal Reports as per HPI - Integumentary Denies rash, Denies unusual bruising - Neurological Denies headaches, Denies syncope - Psychiatric Reports as per HPI - Endocrine Reports as per HPI - Hematologic/Lymphatic Denies easy bleeding, Denies easy bruising - Allergic/Immunologic Reports as per HPI Past Medical History Past Medical History: Blood Disorder Additional Past Medical History / Comment(s): Obstetric history: First 2 pregnancies were spontaneous abortions. Third was a vaginal delivery. This is her fourth and she had care with [facility] since the first trimester. Blood type is O+, antibodies negative, RPR nonreactive, hepatitis B- , GBS positive, rubella immune. She did see [facility] for her history of hepatitis C. IRON DEFICIENCY ANEMIA History of Any Multi-Drug Resistant Organisms: None Reported Past Surgical History: No Surgical Hx Reported Additional Past Surgical History / Comment(s): retained Nexplanon removed from Left upper arm Past Anesthesia/Blood Transfusion Reactions: No Reported Reaction Past Psychological History: No Psychological Hx Reported Smoking Status: Never smoker Past Alcohol Use History: None Reported Past Drug Use History: None Reported - Past Family History Mother Family Medical History: No Reported History Medications and Allergies Home Medications Medication Instructions Recorded Confirmed Type Omeprazole 20 mg PO DAILY 04/15/22 10/05/24 History Allergies Allergy/AdvReac Type Severity Reaction Status Date / Time No Known Allergies Allergy Verified 10/05/24 11:04 Surgical - Exam - General no distress - Eyes normal ocular movement - ENT no hearing loss - Neck trachea midline - Respiratory normal respiratory effort, clear to auscultation - Cardiovascular Rhythm: regular Heart Sounds: normal: S1, S2 - Abdomen Abdomen: soft, non tender, no guarding, no rigid, no rebound - Integumentary normal turgor - Neurologic no disoriented, no combative - Musculoskeletal normal gait - Psychiatric oriented to time, oriented to person, oriented to place, speech is normal, memory intact Breast Exam: BRA: 36C Inspection: Bilateral grade 3 ptosis with milky discharge fullness left breast visible in the upper inner quadrant Palpation: Right breast: Multi positional exam somewhat engorged breast with no discrete dominant masses or nodules of concern, milky nipple discharge Right axilla: No adenopathy of concern Left breast: Mildly engorged breast with milky nipple discharge on palpation, there is a proximately 3 cm area of fullness in the upper inner quadrant as well as a 3 cm area of fullness in the 430 to 5 o'clock position Left axilla: No adenopathy of concern Results Impression: 2 areas of cystic fluid/abscess/lactocele in the left breast at 9:00 and at 5:00 Plan: Repeat ultrasound of the breast Consider radiology drainage of the areas with leaving of drain in place Check for cultures Consider I&D in the operating room if radiology is not able to drain these areas CC: Dr. Garcia
== END ==
LOC: WWCWWP 08:06
PROVIDERS: ATTEND Surgery
DX: N64.89 Other specified disorders of breast (principal)

== ENCOUNTER → 2024-10-09 | Outpatient (CLI) | payer OTHER ==
--- NOTE | 2024-10-09 11:32 | USB ---
Reason for Exam: Follow-up at short interval from prior study. Technique: Method: Targeted. Findings: The lower outer quadrant of the left breast, the medial section of the breast of the left breast, the axilla of the left breast and the retroareolar of the left breast were scanned. Left breast ultrasound targeted to the 2 sites of patient's previous abscesses. At the 9:00 position, 11 cm from nipple, there is an irregular hypoechoic area measuring 4.6 x 3.6 x 2.1 cm. This appears very complex now with transmission, peripheral hyperemia, and possible small portions of internal vascularity. Previously measured 3.9 x 2.6 x 1.7 cm. At the 4:00 position, 2 cm from the nipple, additional thick, complex collection measuring 3.6 x 3.5 x 2.3 cm. This is in comparison to 3.5 x 2.6 x 2.2 cm, previously. Axillary lymph node with cortex thickened up to 5 mm likely reactive. Overall Assessment: Probably benign, BI-RAD 3 Management: Diagnostic Breast Ultrasound of the left breast in 1 month. Surgical Consultation of the left breast. In order to determine any potential surgical intervention of the persistent collections at 4:00 and 9:00 that have enlarged slightly in the interval. The collections appear very complex and percutaneous aspiration may not be successful. Results were given to the patient verbally at the time of exam. [facility], , 10/09/2024 11:29 AM. Electronically signed and approved by: Jessica Tamez M.D. Radiologist
== END | disposition home or self-care (01) ==
LOC: RADUSWWP 10:53
PROVIDERS: ATTEND Surgery
DX: N63.20 Unspecified lump in the left breast, unspecified quadrant (principal)